=== PATIENT | female | born 1940 | race Caucasian/White ===

== ENCOUNTER 2016-12-07 10:53 | Outpatient (CLI) | payer MEDICARE, MEDICAID | END 2016-12-07 10:54 | disposition home or self-care (01) | DX: E11.9 Type 2 diabetes mellitus without complications (principal) ==

== ENCOUNTER 2017-04-17 21:55 | Outpatient (CLI) | payer MEDICARE, MEDICAID | END 2017-04-17 21:56 | disposition critical access hospital (66) | LOC: EMS 21:55 | PROVIDERS: ATTEND Surgery | DX: R10.30 Lower abdominal pain, unspecified (principal); R11.2 Nausea with vomiting, unspecified | CPT/HCPCS: A0425; A0427 ==

== ENCOUNTER 2017-04-17 22:15 | Emergency (ER) | payer MEDICARE, MEDICAID ==
[2017-04-17] MEDS ORDERED: ONDANSETRON 4 MG/2 ML VIAL IVP STA (22:25)
[2017-04-17] MEDS ORDERED: MORPHINE 2 MG/ML SYRINGE IVP STA (22:25)
[2017-04-17] MEDS ORDERED: MORPHINE 2 MG/ML SYRINGE ONE (22:41)
[2017-04-17] MEDS ORDERED: ONDANSETRON 4 MG/2 ML VIAL ONE (22:41)
[2017-04-17 23:36] LABS: BASOPHILS # (AUTO) 0.1 10^3/uL (0.0-0.1); BASOPHILS % (AUTO) 0.5 %; EOSINOPHILS # (AUTO) 0.1 10^3/uL (0.0-0.7); EOSINOPHILS % (AUTO) 0.8 %; HCT - HEMATOCRIT 38.6 % (37.0-47.0); HGB - HEMOGLOBIN 12.9 g/dL (12.0-16.0); LYMPHOCYTES # (AUTO) 0.8 10^3/uL (1.5-3.5); LYMPHOCYTES % (AUTO) 4.8 %; MEAN CORPUSCULAR HEMOGLOBIN 29.6 pg (27.0-31.0); MEAN CORPUSCULAR HGB CONC 33.5 g/dL (32.0-36.0); MEAN CORPUSCULAR VOLUME 88.4 fL (81.0-99.0); MEAN PLATELET VOLUME 8.3 fL (7.9-10.8); MONOCYTES # (AUTO) 0.5 10^3/uL (0.0-1.0); NEUTROPHILS # (AUTO) 15.8 10^3/uL (1.5-6.6); NEUTROPHILS % (AUTO) 90.9 %; RED BLOOD COUNT 4.36 10^6/uL (4.20-5.40); RED CELL DISTRIBUTION WIDTH 14.4 % (12.0-15.0); UNCORRECTED WHITE BLOOD COUNT 17.4 x10^3/uL; WHITE BLOOD COUNT 17.4 x10^3/uL (4.8-10.8)
[2017-04-17 23:50] LABS: ALBUMIN/GLOBULIN RATIO 1.3 (1.0-2.2); BILIRUBIN,TOTAL 0.8 mg/dL (0.2-1.0); CREATININE 0.8 mg/dL (0.4-1.0); POTASSIUM 3.8 mmol/L (3.5-5.0); TOTAL PROTEIN 7.4 g/dL (6.7-8.2)
[2017-04-17] MEDS ORDERED: SODIUM CHLORIDE 0.9% 1,000 ML IV ONE (23:53)
[2017-04-18 00:03] LABS: BILIRUBIN,URINE NEGATIVE (NEGATIVE); PH,URINE 5.5 PH (5.0-7.5)
[2017-04-18 00:28] LABS: UA w/ MICROSCOPIC CHARGE YES
[2017-04-18 00:29] LABS: UR CULTURE IF IND INDICATED
[2017-04-18] MEDS ORDERED: IOPAMIDOL-300 100 ML VIAL IVP ONE (00:39)
--- NOTE | 2017-04-18 01:03 | CT Report ---
EXAM: CT ABDOMEN AND PELVIS EXAM DATE: 04/18/2017 12:38 AM. CLINICAL HISTORY: Abdominal pain leukocytosis. COMPARISONS: 10/30/2015. TECHNIQUE: Routine helical CT imaging was performed through the abdomen and pelvis. IV contrast: Adriana onic. Enteric contrast: No. Reconstructions: Coronal and sagittal. In accordance with CT protocol optimization, one or more of the following dose reduction techniques w ere utilized for this exam: automated exposure control, adjustment of mA and/or KV based on patient s ize, or use of iterative reconstructive technique. FINDINGS: Lung Bases: Mild bibasilar atelectasis. Postoperative changes. Mild cardiomegaly. Small hiatal hernia . Liver: Suspected fatty infiltration. Gallbladder/Bile Ducts: Unremarkable. Spleen: Normal. Pancreas: Normal. Adrenal Glands: Normal. Kidneys: Right renal cyst measuring 5.2 cm. 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 Peritoneal Cavity/Bowel: Large amount of stool in the colon. Colonic diverticula without definite devyn dence of diverticulitis. No bowel obstruction seen. No free air. Trace free fluid in the pelvis. No l ymphadenopathy. Small umbilical hernia containing fat. Appendix appears normal. Pelvic Organs: Decompressed urinary bladder with Beebe catheter. Mild bladder wall thickening. Promin ent uterus with suspected fibroids. Vasculature: Moderate atherosclerosis. No aortic aneurysm. Bones: Degenerative changes in the spine. Median sternotomy. Other: None. IMPRESSION: 1. Large amount of stool in the colon. 2. Colonic diverticula with no definite evidence of diverticulitis. 3. Appendix appears normal. 4. Suspect uterine fibroids. 5. Small hiatal hernia. 6. Decompressed urinary bladder with Beebe catheter. Wall thickening which could represent hypertroph y and non-distention. Correlate for the possibility of cystitis. [facility] Referring Provider Line: [phone] SITE ID: [id number]
--- NOTE | 2017-04-18 01:22 | ED Physician Documentation ---
PD HPI ABD PAIN - Stated complaint Stated Complaint: ABD PAIN, N/V - Chief complaint Chief Complaint: Abd Pain - History obtained from History obtained from: Patient, EMS - History of Present Illness Timing - onset: How many hours ago (2) Timing - details: Abrupt onset Quality: Cramping Location: All over / everywhere, Epigastric Worsened by: Eating, Palpation Associated symptoms: Nausea, Vomiting, Constipation. No: Hematemesis, Diarrhea , Near syncope / syncope Similar symptoms before: No diagnosis Recently seen: Not recently seen - Additional information Additional information: Patient is a 76 year old female with multiple co-morbidities who is presenting to the emergency department for abdominal pain. According to patient and ems patient went out to eat at a diner and few hours later developed severe abdominal pain so patient called ems. Upon arrival to the emergency department the vomiting had stopped but patient still continued to complain of pain. Review of Systems Constitutional: denies: Fever, Chills Eyes: denies: Decreased vision, Photophobia Ears: denies: Ear pain, Drainage/discharge Nose: denies: Rhinorrhea / runny nose, Congestion Throat: denies: Sore throat Respiratory: denies: Cough, Wheezing GI: reports: Abdominal Pain, Nausea, Vomiting, Constipation. denies: Diarrhea : reports: Dysuria, Incontinent. denies: Frequency Skin: denies: Rash, Lesions Neurologic: denies: Generalized weakness, Focal weakness, Numbness, Difficulty speaking Immunocompromised: denies: Immunocompromised PD PAST MEDICAL HISTORY - Past Medical History Cardiovascular: Hypertension, High cholesterol, Coronary artery disease, Other Respiratory: None Neuro: TIA, Peripheral neuropathy Endocrine/Autoimmune: Type 2 diabetes, HyPERthyroidism GI: GERD : Incontinence HEENT: Chronic vision loss Psych: None Musculoskeletal: Osteoarthritis Derm: None - Past Surgical History Past Surgical History: Yes Ortho: Rotator cuff repair, Spine surgery Cardiovascular: CABG, Coronary stent - Present Medications Home Medications: Ambulatory Orders Medication Instructions Recorded Confirmed Clopidogrel Bisulfate [Plavix] 75 mg PO DAILY 04/21/14 12/31/14 Metformin HCl 1,000 mg PO BID 04/21/14 12/31/14 Metoprolol Tartrate 50 mg PO BID 04/21/14 12/31/14 Docusate Calcium [Surfak] 240 mg PO DAILY 09/04/14 12/31/14 Insulin Glargine [Lantus] 30 unit SUBQ QPM 09/04/14 12/31/14 Aspirin [Aspir 81] 81 mg PO DAILY 09/19/14 12/31/14 Losartan [Cozaar] 50 mg PO DAILY 09/19/14 12/31/14 Pregabalin [Lyrica] 50 mg PO DAILY 09/19/14 12/31/14 Acetaminophen [Tactinal] 650 mg PO Q4H PRN 12/31/14 12/31/14 Atorvastatin Calcium [Lipitor] 20 mg PO QPM 12/31/14 12/31/14 Chlorthalidone 25 mg PO DAILY 12/31/14 12/31/14 Darifenacin [Enablex] 15 mg PO DAILY 12/31/14 12/31/14 Insulin Lispro [Humalog] 6 units SQ AC 12/31/14 02/17/15 Pantoprazole [Protonix] 40 mg PO DAILY 12/31/14 12/31/14 Dicyclomine [Bentyl] 10 mg PO TID PRN #15 capsule 04/18/17 Docusate Sodium 250Mg Capsule 250 mg PO DAILY #14 capsule 04/18/17 [Colace 250Mg Capsule] Ondansetron Odt [Zofran] 4 mg TL Q6H PRN #14 tablet 04/18/17 Sennosides [Senna] 8.6 mg PO DAILY #14 tablet 04/18/17 - Allergies Allergies/Adverse Reactions: Allergies Allergy/AdvReac Type Severity Reaction Status Date / Time No Known Drug Allergies Allergy Verified 04/17/17 22:18 - Social History Does the pt smoke?: No Smoking Status: Never smoker Does the pt drink ETOH?: No PD ED PE NORMAL - Vitals Vital signs reviewed: Yes - General General: Alert and oriented X 3, No acute distress - HEENT HEENT: Atraumatic, PERRL - Neck Neck: Supple, no meningeal sign - Cardiac Cardiac: RRR, No murmur - Respiratory Respiratory: No respiratory distress, Clear bilaterally - Derm Derm: Normal color, Warm and dry, No rash - Extremities Extremities: No deformity, No tenderness to palpate, Normal ROM s pain, No edema - Neuro Neuro: Alert and oriented X 3, No motor deficit, No sensory deficit - Psych Psych: Normal mood, Normal affect PD ED PE EXPANDED - General General: Alert, No acute distress - HEENT HEENT: Dry mucous membranes - Abdomen Abdomen: Tender to palpation, Generalized/diffuse. No: Rebound, Guarding Results - Vitals Vitals: Vital Signs - 24 hr 04/17/17 04/17/17 04/18/17 22:18 23:24 00:00 Temperature 36.6 C Heart Rate 87 89 87 Respiratory 17 16 20 Rate Blood Pressure 153/104 H 147/60 H 158/58 H O2 Saturation 98 97 98 04/18/17 04/18/17 01:54 02:28 Temperature Heart Rate 88 90 Respiratory 16 16 Rate Blood Pressure 148/59 H 136/40 H O2 Saturation 98 96 Oxygen O2 Source Room air - Labs Labs: Laboratory Tests 04/17/17 04/17/17 04/17/17 00:01 23:15 23:15 WBC 17.4 H RBC 4.36 Hgb 12.9 Hct 38.6 MCV 88.4 MCH 29.6 MCHC 33.5 RDW 14.4 Plt Count 286 MPV 8.3 Neut # 15.8 H Lymph # 0.8 L [place] # 0.5 Eos # 0.1 Baso # 0.1 Absolute Nucleated RBC 0.00 Nucleated RBCs 0.0 Sodium 139 Potassium 3.8 Chloride 102 Carbon Dioxide 27 Anion Gap 10.0 BUN 21 H Creatinine 0.8 Estimated GFR (MDRD) 70 L Glucose 154 H Lactic Acid Calcium 9.0 Total Bilirubin 0.8 AST 15 ALT 13 Alkaline Phosphatase 80 Troponin I Total Protein 7.4 Albumin 4.2 Globulin 3.2 Albumin/Globulin Ratio 1.3 Lipase 25 Urine Color YELLOW Urine Clarity HAZY Urine pH 5.5 Ur Specific [place] 1.025 Urine Protein TRACE Urine Glucose (UA) NEGATIVE Urine Ketones NEGATIVE Urine Occult Blood MODERATE H Urine Nitrite NEGATIVE Urine Bilirubin NEGATIVE Urine Urobilinogen 0.2 (NORMAL) Ur Leukocyte Esterase TRACE H Urine RBC 11-25 H Urine WBC 4-5 Ur Squamous Epith Cells RARE Squamous Urine Bacteria None Seen Ur Microscopic Review INDICATED Urine Culture Comments INDICATED 04/17/17 04/17/17 23:15 23:15 WBC RBC Hgb Hct MCV MCH MCHC RDW Plt Count MPV Neut # Lymph # [place] # Eos # Baso # Absolute Nucleated RBC Nucleated RBCs Sodium Potassium Chloride Carbon Dioxide Anion Gap BUN Creatinine Estimated GFR (MDRD) Glucose Lactic Acid 1.8 Calcium Total Bilirubin AST ALT Alkaline Phosphatase Troponin I < 0.04 Total Protein Albumin Globulin Albumin/Globulin Ratio Lipase Urine Color Urine Clarity Urine pH Ur Specific [place] Urine Protein Urine Glucose (UA) Urine Ketones Urine Occult Blood Urine Nitrite Urine Bilirubin Urine Urobilinogen Ur Leukocyte Esterase Urine RBC Urine WBC Ur Squamous Epith Cells Urine Bacteria Ur Microscopic Review Urine Culture Comments - Rads (name of study) ct abdomen and pelvis Radiology: Final report received (large amount of stool, ) PD MEDICAL DECISION MAKING - ED course Complexity details: reviewed old records, reviewed results, re-evaluated patient , considered differential, d/w patient, d/w family ED course: Patient was seen and examined at bedside. IV access was gained and labs were drawn. Patient was treated with fluids and zofran. when patient's labs came back patient was found to have a leukocytosis but no other major abnormalities. Patient was sent for imaging. Imaging revealed no acute abnormalities. Patient did have mild hematuria but she had been cathed twice. Patient and family felt comfortable with the discharge plan. patient was discharged in stable condition. Departure - Departure Disposition: 01 Home, Self Care Clinical Impression: Gastroenteritis, Constipation Condition: Good Instructions: ED Constipation, ED Gastroenteritis Bacterial Follow-Up: Alice Curtis DPM [Primary Care Provider] - Tomorrow Prescriptions: Dicyclomine [Bentyl] 10 mg PO TID PRN #15 capsule PRN Reason: Abdominal Pain Docusate Sodium 250Mg Capsule [Colace 250Mg Capsule] 250 mg PO DAILY #14 capsule Sennosides [Senna] 8.6 mg PO DAILY #14 tablet Ondansetron Odt [Zofran] 4 mg TL Q6H PRN #14 tablet PRN Reason: Nausea / Vomiting Comments: Your symptoms today are being caused by a couple of different things. the vomiting and cramping is likely secondary to gastroenteritis and the diffuse abdominal pain is secondary to constipation. You will need to stay well hydrated and increase the amount of fruits and vegetables you eat. You may return to the emergency department at any time for new, worsening or uncontrollable symptoms. Discharge Date/Time: 04/18/17 02:31
[2017-04-18] MEDS ORDERED: DICYCLOMINE 10 MG CAPSULE PO ONE (01:41)
[2017-04-18] MEDS ORDERED: DICYCLOMINE 10 MG CAPSULE PO STA (01:44)
[2017-04-18 02:30] VITALS: BP 136/40
--- NOTE | 2017-04-18 12:40 | ED Physician Documentation ---
ED Addendum - Addendum Addendum: 04/18/17 12:40 TC from pharm, zofran not covered, phenergan 25mg tab 1 PO q6h PRN N/V #15
== END 2017-04-18 02:31 | disposition home or self-care (01) ==
LOC: EDUNIT# → ED 22:15
DX: K52.9 Noninfective gastroenteritis and colitis, unspecified (principal); K59.00 Constipation, unspecified; I10 Essential (primary) hypertension; E78.00 Pure hypercholesterolemia, unspecified; I25.10 Atherosclerotic heart disease of native coronary artery without angina pectoris; Z95.1 Presence of aortocoronary bypass graft; E11.42 Type 2 diabetes mellitus with diabetic polyneuropathy; Z79.4 Long term (current) use of insulin; Z79.84 Long term (current) use of oral hypoglycemic drugs; E05.90 Thyrotoxicosis, unspecified without thyrotoxic crisis or storm; K21.9 Gastro-esophageal reflux disease without esophagitis; Z86.73 Personal history of transient ischemic attack (TIA), and cerebral infarction without residual deficits; M19.90 Unspecified osteoarthritis, unspecified site
CPT/HCPCS: 36415; 51702; 74177; 80053; 81001; 83605; 83690; 84484; 85025; 87077; 87086; 87181; 96374; 96375; 99284; A9270; Q9967; 81003

== ENCOUNTER 2017-05-10 13:31 | Outpatient (CLI) | payer MEDICARE, MEDICAID ==
--- NOTE | 2017-05-10 15:08 | MRI Report ---
EXAM: MRI BRAIN WITHOUT CONTRAST EXAM DATE: 05/10/2017 02:17 PM. CLINICAL HISTORY: Confusion, history of TIA. COMPARISON: MRI of the brain 11/27/2011. TECHNIQUE: Multiplanar, multisequence T1-weighted and fluid-sensitive MR sequences of the brain were performed. Sequences optimized for routine evaluation. Other: None. IV Contrast: None. FINDINGS: Brain Volume: Age-advanced volume loss is present. Parenchyma/Dura: No masses, infarcts, or hemorrhage. Mild diffuse T2 and FLAIR bright white matter si gnal is seen throughout the cerebral hemispheres and brainstem. This is not significantly changed. In terval involution of previously noted acute infarct in the right anterior mid may is appreciated. No te is made of diffuse prominence to dilated perivascular spaces throughout the cerebral hemispheres b ilaterally. Ventricles/Cisterns: No hydrocephalus. No abnormal extra-axial fluid collection or hemorrhage. Mild p rominence to the ventricular system and overlying cortical sulci is noted. Orbits: Note is made of bilateral lens removal. The globes, optic nerve sheath complex, extraocular m uscles, and orbital fat are unremarkable. Sella [place]: The pituitary gland, cavernous sinuses, suprasellar cistern, and optic chiasm are unre markable. IAC: The internal auditory canals and cerebellopontine angle cisterns are symmetric and unremarkable. Vasculature: Normal signal flow void is seen in the major arterial structures at the skull base. The left vertebral artery is larger than the right. Sinuses: The paranasal sinuses are clear. Partial opacification is seen throughout bilateral mastoid air cells. This is not significantly changed. Bones: The skull is intact. Other: None. IMPRESSION: 1. No acute intracranial abnormality. No acute infarct, mass, hemorrhage. 2. Mild white matter signal abnormality in the cerebral hemispheres and brainstem. Findings are nonsp ecific but typically secondary to small vessel ischemic change. -Interval involution with small cystic focus in the right anterior may at site of previously noted l acunar infarct. 3. Partial opacification involving bilateral mastoid air cells. [facility] Referring Provider Line: [phone] SITE ID: [id number]
== END 2017-05-10 13:32 | disposition home or self-care (01) ==
LOC: DI 13:31
PROVIDERS: ATTEND Family Medicine
DX: R90.82 White matter disease, unspecified (principal); R90.89 Other abnormal findings on diagnostic imaging of central nervous system
CPT/HCPCS: 70551

== ENCOUNTER 2017-05-12 12:24 | Outpatient (CLI) | payer MEDICARE, MEDICAID ==
[2017-05-12 19:47] LABS: ALBUMIN/GLOBULIN RATIO 1.1 (1.0-2.2); BILIRUBIN,TOTAL 0.6 mg/dL (0.2-1.0); CALCIUM 8.8 mg/dL (8.5-10.3); CREATININE 1.1 mg/dL (0.4-1.0); POTASSIUM 4.1 mmol/L (3.5-5.0)
== END 2017-05-12 12:25 | disposition home or self-care (01) ==
LOC: LAB.WCP 12:24
PROVIDERS: ATTEND Family Medicine
DX: R60.9 Edema, unspecified (principal); N39.0 Urinary tract infection, site not specified
CPT/HCPCS: 36415; 80053; 83880; 87077; 87086

== ENCOUNTER 2017-05-19 08:00 | Outpatient (CLI) | payer MEDICARE, MEDICAID ==
[2017-05-19 19:06] LABS: CALCIUM 8.7 mg/dL (8.5-10.3); CREATININE 1.1 mg/dL (0.4-1.0); POTASSIUM 4.3 mmol/L (3.5-5.0)
== END 2017-05-19 08:01 ==
LOC: LAB.WCP 08:00
PROVIDERS: ATTEND Family Medicine
DX: R60.9 Edema, unspecified (principal); N39.0 Urinary tract infection, site not specified
CPT/HCPCS: 36415; 80048; 87086

== ENCOUNTER 2017-05-24 11:12 | Outpatient (CLI) | payer MEDICARE, MEDICAID | END 2017-05-24 11:13 | disposition home or self-care (01) | LOC: DI 11:12 | PROVIDERS: ATTEND Family Medicine | DX: R60.9 Edema, unspecified (principal); I07.1 Rheumatic tricuspid insufficiency | CPT/HCPCS: 93306 ==

== ENCOUNTER 2017-06-23 11:05 | Outpatient (CLI) | payer MEDICARE, MEDICAID ==
[2017-06-23 19:09] LABS: BASOPHILS # (AUTO) 0.1 10^3/uL (0.0-0.1); BASOPHILS % (AUTO) 0.6 %; EOSINOPHILS # (AUTO) 0.2 10^3/uL (0.0-0.7); EOSINOPHILS % (AUTO) 1.8 %; HCT - HEMATOCRIT 37.9 % (37.0-47.0); HGB - HEMOGLOBIN 12.3 g/dL (12.0-16.0); LYMPHOCYTES # (AUTO) 1.5 10^3/uL (1.5-3.5); LYMPHOCYTES % (AUTO) 17.2 %; MEAN CORPUSCULAR HEMOGLOBIN 29.7 pg (27.0-31.0); MEAN CORPUSCULAR HGB CONC 32.5 g/dL (32.0-36.0); MEAN CORPUSCULAR VOLUME 91.2 fL (81.0-99.0); MEAN PLATELET VOLUME 8.3 fL (7.9-10.8); MONOCYTES # (AUTO) 0.6 10^3/uL (0.0-1.0); MONOCYTES % (AUTO) 6.7 %; NEUTROPHILS # (AUTO) 6.5 10^3/uL (1.5-6.6); NEUTROPHILS % (AUTO) 73.7 %; RED BLOOD COUNT 4.16 10^6/uL (4.20-5.40); UNCORRECTED WHITE BLOOD COUNT 8.8 x10^3/uL; WHITE BLOOD COUNT 8.8 x10^3/uL (4.8-10.8)
[2017-06-23 19:25] LABS: ALBUMIN/GLOBULIN RATIO 1.3 (1.0-2.2); BILIRUBIN,TOTAL 0.6 mg/dL (0.2-1.0); BUN - BLOOD UREA NITROGEN 20 mg/dL (6-20); CARBON DIOXIDE - CO2 26 mmol/L (21-32); CHLORIDE 106 mmol/L (101-111); CHOL/HDL RATIO 3.8 (<4.4); CHOLESTEROL 128 mg/dL; CREATININE 0.9 mg/dL (0.4-1.0); GFR - MDRD 61 (>89); GLUCOSE 193 mg/dL (70-100); HDL CHOLESTEROL 34 mg/dL; HEMOGLOBIN A1C 0.77 g/dL; LDL/HDL RATIO 1.9 (<4.4); POTASSIUM 4.1 mmol/L (3.5-5.0); SODIUM 141 mmol/L (135-145); TOTAL PROTEIN 6.8 g/dL (6.7-8.2); TRIGLYCERIDES 153 mg/dL; VLDL CHOLESTEROL 31 mg/dL
== END 2017-06-23 11:06 | disposition home or self-care (01) ==
LOC: LAB.WCP 11:05
PROVIDERS: ATTEND Family Medicine
DX: E11.9 Type 2 diabetes mellitus without complications (principal)
CPT/HCPCS: 36415; 80053; 80061; 83036; 85025

== ENCOUNTER 2017-07-03 16:47 | Outpatient (CLI) | payer MEDICARE, MEDICAID | END 2017-07-03 16:48 | disposition critical access hospital (66) | LOC: EMS 16:47 | PROVIDERS: ATTEND Surgery | DX: M79.662 Pain in left lower leg (principal) | CPT/HCPCS: A0425; A0429 ==

== ENCOUNTER 2017-07-03 17:06 | Emergency (ER) | payer MEDICARE, MEDICAID ==
--- NOTE | 2017-07-03 17:15 | ED Physician Documentation ---
PD HPI LOWER EXT INJURY - Stated complaint Stated Complaint: Fall - Chief complaint Chief Complaint: Ext Problem - History obtained from History obtained from: Patient, EMS - History of Present Illness PD HPI LOW EXT INJURY LOCATION: Left, Lower leg Type of injury: Fall, Blunt / blow (she was climging into [place] and slipped on wet hay, landing with redd hitting the rail. Bruising and swelling locally that has increased. Pain with palpation and walking.) Timing - onset: Today Timing - details: Abrupt onset, Still present Worsened by: Moving, Palpating Associated symptoms: Swelling. No: Weakness, Numbness Contributing factors: Anticoagulated (on Plavix) Similar symptoms before: Has not had sx before Recently seen: Not recently seen Review of Systems Constitutional: denies: Fever, Chills Nose: denies: Rhinorrhea / runny nose, Congestion Throat: denies: Sore throat Cardiac: denies: Chest pain / pressure Respiratory: denies: Cough GI: denies: Abdominal Pain, Nausea, Vomiting, Diarrhea Neurologic: denies: Focal weakness, Numbness, Headache, Head injury PD PAST MEDICAL HISTORY - Past Medical History Cardiovascular: Hypertension, High cholesterol, Coronary artery disease, Other Respiratory: None Neuro: TIA, Peripheral neuropathy Endocrine/Autoimmune: Type 2 diabetes, HyPERthyroidism GI: GERD : Incontinence HEENT: Chronic vision loss Psych: None Musculoskeletal: Osteoarthritis Derm: None - Past Surgical History Past Surgical History: Yes Ortho: Rotator cuff repair, Spine surgery Cardiovascular: CABG, Coronary stent - Present Medications Home Medications: Ambulatory Orders Medication Instructions Recorded Confirmed Clopidogrel Bisulfate [Plavix] 75 mg PO DAILY 04/21/14 07/03/17 Metformin HCl 1,000 mg PO BID 04/21/14 07/03/17 Metoprolol Tartrate 50 mg PO BID 04/21/14 07/03/17 Docusate Calcium [Surfak] 240 mg PO DAILY 09/04/14 07/03/17 Insulin Glargine [Lantus] 30 unit SUBQ QPM 09/04/14 07/03/17 Aspirin [Aspir 81] 81 mg PO DAILY 09/19/14 07/03/17 Losartan [Cozaar] 50 mg PO DAILY 09/19/14 07/03/17 Pregabalin [Lyrica] 50 mg PO DAILY 09/19/14 07/03/17 Acetaminophen [Tactinal] 650 mg PO Q4H PRN 02/17/15 08/20/17 Atorvastatin Calcium [Lipitor] 20 mg PO QPM 12/31/14 07/03/17 Chlorthalidone 25 mg PO DAILY 12/31/14 07/03/17 Darifenacin [Enablex] 15 mg PO DAILY 12/31/14 07/03/17 Insulin Lispro [Humalog] 6 units SQ AC 12/31/14 07/03/17 Docusate Sodium 250Mg Capsule 250 mg PO DAILY #14 capsule 04/18/17 07/03/17 [Colace 250Mg Capsule] Ondansetron Odt [Zofran] 4 mg TL Q6H PRN #14 tablet 04/18/17 07/03/17 Sennosides [Senna] 8.6 mg PO DAILY #14 tablet 04/18/17 07/03/17 - Allergies Allergies/Adverse Reactions: Allergies Allergy/AdvReac Type Severity Reaction Status Date / Time No Known Drug Allergies Allergy Verified 04/17/17 22:18 - Social History Does the pt smoke?: No Smoking Status: Never smoker Does the pt drink ETOH?: No PD ED PE NORMAL - Vitals Vital signs reviewed: Yes - General General: Alert and oriented X 3, Well developed/nourished - HEENT HEENT: Atraumatic - Neck Neck: Supple, no meningeal sign, No bony TTP - Abdomen Abdomen: Soft, Non tender - Back Back: No spinal TTP - Derm Derm: Normal color, Warm and dry - Extremities Extremities: Other (left anterior lower leg, proximal end medial to tibial ridge with local hematoma, tender with some tenseness. No laceration. ) - Neuro Neuro: No motor deficit, Other (has less sensation generally in lower lower legs and feet due to neuropathy. Patient says it feels about normal for her. ) Results - Vitals Vitals: Oxygen O2 Source Room air - Rads (name of study) tib/fib Radiology: Prelim report reviewed, EMP read contemporaneously (no fractures. ) PD MEDICAL DECISION MAKING - ED course Complexity details: reviewed results, considered differential, d/w patient Departure - Departure Disposition: 01 Home, Self Care Clinical Impression: Fall from slip, trip, or stumble Qualifiers: Encounter type: initial encounter Qualified Code(s): W01.0XXA - Fall on same level from slipping, tripping and stumbling without subsequent striking against object, initial encounter Hematoma of lower extremity Qualifiers: Encounter type: initial encounter Laterality: left Qualified Code(s): S80.12XA - Contusion of left lower leg, initial encounter Condition: Stable Record reviewed to determine appropriate education?: Yes Instructions: ED Hematoma Follow-Up: Bryn Knight MD [Primary Care Provider] - Comments: Anshul wrap for the area and elevate and ice it tonight and tomorrow to reduce the swelling. There are no fractures on x-ray. It appears to be a hematoma which is a collection of blood from injury. This typically improves on its own over a week or 2. He will likely get some bruising at the site and lower in the leg over the next several days. Use Tylenol if needed for pains. Discharge Date/Time: 07/03/17 18:44
[2017-07-03] MEDS ORDERED: MORPHINE 2 MG/ML CARPUJECT IVP STA (17:26)
[2017-07-03] MEDS ORDERED: ACETAMINOPHEN 325 MG TABLET PO STA (17:26)
[2017-07-03] MEDS ORDERED: MORPHINE 2 MG/ML CARPUJECT ONE (17:46)
[2017-07-03] MEDS ORDERED: ACETAMINOPHEN 325 MG TABLET PO ONE (17:47)
[2017-07-03 18:03] VITALS: BP 173/72
--- NOTE | 2017-07-03 18:11 | XRAY Preliminary Report ---
Exam: XR Tib/Fib LT IMPRESSION: Normal tibia/fibula radiography. [facility] SITE ID: [id number]
--- NOTE | 2017-07-03 18:14 | XRAY Report ---
EXAM: LEFT TIBIA/FIBULA RADIOGRAPHY EXAM DATE: 07/03/2017 05:47 PM. CLINICAL HISTORY: Fall. Injury to left upper anterior redd. COMPARISON: None. TECHNIQUE: 2 views. FINDINGS: Bones: Normal. No fracture or bone lesion. Joints: The visualized knee and ankle joints are normal. No effusions. Soft Tissues: Vascular clips noted. IMPRESSION: Normal tibia/fibula radiography. [facility] Referring Provider Line: [phone] SITE ID: [id number]
== END 2017-07-03 18:44 | disposition home or self-care (01) ==
LOC: EDUNIT# → ED 17:06
DX: S80.12XA Contusion of left lower leg, initial encounter (principal); W18.30XA Fall on same level, unspecified, initial encounter; W22.09XA Striking against other stationary object, initial encounter; Y93.39 Activity, other involving climbing, rappelling and jumping off; Y92.9 Unspecified place or not applicable; I10 Essential (primary) hypertension; E11.8 Type 2 diabetes mellitus with unspecified complications; I25.10 Atherosclerotic heart disease of native coronary artery without angina pectoris; Z95.1 Presence of aortocoronary bypass graft; Z95.5 Presence of coronary angioplasty implant and graft; Z79.01 Long term (current) use of anticoagulants; Z79.84 Long term (current) use of oral hypoglycemic drugs; Z79.4 Long term (current) use of insulin
CPT/HCPCS: 73590; 96374; 99283; A9270

== ENCOUNTER 2017-08-02 10:51 | Outpatient (CLI) | payer MEDICARE, MEDICAID | END 2017-08-02 10:52 | disposition home or self-care (01) | LOC: SC 10:51 | PROVIDERS: ATTEND Internal Medicine Pulmonary Disease | DX: R53.83 Other fatigue (principal); R06.83 Snoring; R06.81 Apnea, not elsewhere classified; G31.84 Mild cognitive impairment of uncertain or unknown etiology; G47.10 Hypersomnia, unspecified; E11.9 Type 2 diabetes mellitus without complications; M79.7 Fibromyalgia; R00.1 Bradycardia, unspecified; I25.10 Atherosclerotic heart disease of native coronary artery without angina pectoris; G62.9 Polyneuropathy, unspecified | CPT/HCPCS: 99203; G0463; 99212 ==

== ENCOUNTER 2017-09-09 22:26 | Outpatient (CLI) | payer MEDICARE, MEDICAID | END 2017-09-09 22:27 | disposition home or self-care (01) | LOC: SC 22:26 | PROVIDERS: ATTEND Internal Medicine Pulmonary Disease | DX: G47.33 Obstructive sleep apnea (adult) (pediatric) (principal); G47.61 Periodic limb movement disorder; Z68.34 Body mass index [BMI] 34.0-34.9, adult | CPT/HCPCS: 95810 ==

== ENCOUNTER 2017-09-29 14:05 | Outpatient (CLI) | payer MEDICARE, MEDICAID | END 2017-09-29 14:06 | disposition home or self-care (01) | LOC: SC 14:05 | PROVIDERS: ATTEND Specialist | DX: G47.33 Obstructive sleep apnea (adult) (pediatric) (principal); G47.61 Periodic limb movement disorder; G47.00 Insomnia, unspecified | CPT/HCPCS: 99214; G0463; 99212 ==

== ENCOUNTER 2017-10-26 08:00 | Outpatient (CLI) | payer MEDICARE, MEDICAID | END 2017-10-26 08:01 | disposition home or self-care (01) | LOC: LAB.WCP 08:00 | PROVIDERS: ATTEND Family Medicine | DX: R30.9 Painful micturition, unspecified (principal) | CPT/HCPCS: 87086 ==

== ENCOUNTER 2018-01-26 11:50 | Outpatient (CLI) | payer MEDICARE, MEDICAID ==
[2018-01-26 19:07] LABS: BASOPHILS # (AUTO) 0.1 10^3/uL (0.0-0.1); BASOPHILS % (AUTO) 0.8 %; EOSINOPHILS # (AUTO) 0.2 10^3/uL (0.0-0.7); EOSINOPHILS % (AUTO) 2.7 %; HGB - HEMOGLOBIN 11.9 g/dL (12.0-16.0); LYMPHOCYTES # (AUTO) 1.2 10^3/uL (1.5-3.5); LYMPHOCYTES % (AUTO) 15.9 %; MEAN CORPUSCULAR HEMOGLOBIN 28.7 pg (27.0-31.0); MEAN CORPUSCULAR HGB CONC 31.9 g/dL (32.0-36.0); MEAN CORPUSCULAR VOLUME 89.8 fL (81.0-99.0); MONOCYTES # (AUTO) 0.6 10^3/uL (0.0-1.0); MONOCYTES % (AUTO) 7.8 %; NEUTROPHILS # (AUTO) 5.6 10^3/uL (1.5-6.6); NEUTROPHILS % (AUTO) 72.8 %; PLT - PLATELET COUNT 274 10^3/uL (130-450); RED BLOOD COUNT 4.16 10^6/uL (4.20-5.40); RED CELL DISTRIBUTION WIDTH 14.4 % (12.0-15.0); WHITE BLOOD COUNT 7.6 x10^3/uL (4.8-10.8)
[2018-01-26 19:34] LABS: HB2 TOTAL 12.7 g/dL; HEMOGLOBIN A1C 0.75 g/dL; HEMOGLOBIN A1C % 7.6 % (4.6-6.2)
== END 2018-01-26 11:51 ==
LOC: LAB.WCP 11:50
PROVIDERS: ATTEND Family Medicine
DX: E11.9 Type 2 diabetes mellitus without complications (principal); N39.0 Urinary tract infection, site not specified
CPT/HCPCS: 36415; 80053; 80061; 83036; 83721; 84443; 85025; 87086

== ENCOUNTER 2018-03-22 22:02 | Outpatient (CLI) | payer MEDICARE, MEDICAID | END 2018-03-22 22:03 | disposition critical access hospital (66) | LOC: EMS 22:02 | PROVIDERS: ATTEND Surgery | DX: R10.30 Lower abdominal pain, unspecified (principal) | CPT/HCPCS: A0425; A0429 ==

== ENCOUNTER 2018-03-22 22:20 | Emergency (ER) | payer MEDICARE, MEDICAID ==
[2018-03-22 22:49] LABS: BASOPHILS # (AUTO) 0.1 10^3/uL (0.0-0.1); BASOPHILS % (AUTO) 0.5 %; EOSINOPHILS # (AUTO) 0.1 10^3/uL (0.0-0.7); EOSINOPHILS % (AUTO) 0.5 %; HGB - HEMOGLOBIN 12.8 g/dL (12.0-16.0); LYMPHOCYTES # (AUTO) 1.1 10^3/uL (1.5-3.5); LYMPHOCYTES % (AUTO) 6.4 %; MEAN CORPUSCULAR HEMOGLOBIN 28.8 pg (27.0-31.0); MEAN CORPUSCULAR HGB CONC 32.2 g/dL (32.0-36.0); MEAN CORPUSCULAR VOLUME 89.4 fL (81.0-99.0); MEAN PLATELET VOLUME 7.9 fL (7.9-10.8); MONOCYTES # (AUTO) 0.8 10^3/uL (0.0-1.0); MONOCYTES % (AUTO) 4.5 %; NEUTROPHILS # (AUTO) 14.7 10^3/uL (1.5-6.6); NEUTROPHILS % (AUTO) 88.1 %; PLT - PLATELET COUNT 276 10^3/uL (130-450); RED BLOOD COUNT 4.44 10^6/uL (4.20-5.40); RED CELL DISTRIBUTION WIDTH 14.5 % (12.0-15.0); WHITE BLOOD COUNT 16.7 x10^3/uL (4.8-10.8)
[2018-03-22 23:02] LABS: ALBUMIN 3.9 g/dL (3.2-5.5); BILIRUBIN,TOTAL 0.9 mg/dL (0.2-1.0); CREATININE 0.9 mg/dL (0.4-1.0); TOTAL PROTEIN 7.7 g/dL (6.7-8.2)
[2018-03-22 23:08] LABS: BILIRUBIN,URINE NEGATIVE (NEGATIVE); GLUCOSE, URINE (UA) 250 mg/dL (NEGATIVE); KETONES,URINE (UA) NEGATIVE (NEGATIVE); LEUKOCYTE ESTERASE, URINE NEGATIVE (NEGATIVE); NITRITE,URINE POSITIVE (NEGATIVE); OCCULT BLOOD,URINE NEGATIVE (NEGATIVE); PROTEIN,URINE NEGATIVE (NEGATIVE); UROBILINOGEN,URINE 0.2 (NORMAL) E.U./dL (NORMAL)
[2018-03-22 23:09] LABS: CLARITY,URINE CLOUDY (CLEAR)
[2018-03-22 23:15] LABS: BACTERIA,URINE Many /HPF (None Seen); SQUAMOUS EPITHELIAL CELL,UR NONE SEEN (<= Few)
[2018-03-22] MEDS ORDERED: PHENAZOPYRIDINE 100 MG TABLET PO STA (23:30)
[2018-03-22] MEDS ORDERED: NITROFURANTOIN MACRO 100 MG CAPSULE PO STA (23:30)
[2018-03-22] MEDS ORDERED: ACETAMINOPHEN 500 MG TABLET PO STA (23:30)
--- NOTE | 2018-03-22 23:39 | ED Physician Documentation ---
PD HPI FEMALE - Stated complaint Stated Complaint: ABD PAIN, SHAKING - Chief complaint Chief Complaint: Abd Pain - History obtained from History obtained from: Patient - History of Present Illness Timing - onset: Today Timing - details: Gradual onset, Still present Associated symptoms: Pelvic pain, Dysuria, Urinary frequency Recently seen: Not recently seen - Additional information Additional information: Patient is a 77 year old female with no significant past medical history who is presenting to the emergency department for pelvic pain and dysuria. Patient states that her symptoms started tonight when she was working on puzzles. Patient states that the pain is worse with urination. Patient has not had the symptoms before. Review of Systems Ten Systems: 10 systems reviewed and negative Constitutional: reports: Sweats. denies: Fever GI: reports: Abdominal Pain. denies: Nausea, Vomiting : reports: Dysuria, Frequency PD PAST MEDICAL HISTORY - Past Medical History Cardiovascular: Hypertension, High cholesterol, Coronary artery disease, Other Respiratory: None Neuro: TIA, Peripheral neuropathy Endocrine/Autoimmune: Type 2 diabetes, HyPERthyroidism GI: GERD : Incontinence HEENT: Chronic vision loss Psych: None Musculoskeletal: Osteoarthritis Derm: None - Past Surgical History Past Surgical History: Yes Ortho: Rotator cuff repair, Spine surgery Cardiovascular: CABG, Coronary stent - Present Medications Home Medications: Ambulatory Orders Medication Instructions Recorded Confirmed Clopidogrel Bisulfate [Plavix] 75 mg PO DAILY 04/21/14 07/03/17 Metformin HCl 1,000 mg PO BID 04/21/14 07/03/17 Metoprolol Tartrate 50 mg PO BID 04/21/14 07/03/17 Docusate Calcium [Surfak] 240 mg PO DAILY 09/04/14 07/03/17 Insulin Glargine [Lantus] 30 unit SUBQ QPM 09/04/14 07/03/17 Aspirin [Aspir 81] 81 mg PO DAILY 09/19/14 07/03/17 Losartan [Cozaar] 50 mg PO DAILY 09/19/14 07/03/17 Pregabalin [Lyrica] 50 mg PO DAILY 09/19/14 07/03/17 Acetaminophen [Tactinal] 650 mg PO Q4H PRN 12/31/14 07/03/17 Atorvastatin Calcium [Lipitor] 20 mg PO QPM 12/31/14 07/03/17 Chlorthalidone 25 mg PO DAILY 02/17/15 08/20/17 Darifenacin [Enablex] 15 mg PO DAILY 12/31/14 07/03/17 Insulin Lispro [Humalog] 6 units SQ AC 12/31/14 07/03/17 Docusate Sodium 250Mg Capsule 250 mg PO DAILY #14 capsule 04/18/17 07/03/17 [Colace 250Mg Capsule] Ondansetron Odt [Zofran] 4 mg TL Q6H PRN #14 tablet 04/18/17 07/03/17 Sennosides [Senna] 8.6 mg PO DAILY #14 tablet 04/18/17 07/03/17 Nitrofurantoin Monohyd/M-Cryst 100 mg PO BID 5 Days capsule 03/22/18 [Macrobid 100 mg Capsule] Phenazopyridine HCl [Pyridium] 200 mg PO TID PRN #6 tablet 03/22/18 - Allergies Allergies/Adverse Reactions: Allergies Allergy/AdvReac Type Severity Reaction Status Date / Time No Known Drug Allergies Allergy Verified 03/22/18 22:28 - Social History Does the pt smoke?: No Smoking Status: Never smoker Does the pt drink ETOH?: No PD ED PE NORMAL - Vitals Vital signs reviewed: Yes - General General: Alert and oriented X 3, No acute distress - HEENT HEENT: Atraumatic - Neck Neck: Supple, no meningeal sign - Cardiac Cardiac: RRR - Respiratory Respiratory: No respiratory distress - Abdomen Abdomen: Soft - Derm Derm: Normal color, Warm and dry - Extremities Extremities: No deformity - Neuro Neuro: Alert and oriented X 3, No motor deficit, Normal speech Eye Opening: Spontaneous - Psych Psych: Normal mood PD ED PE EXPANDED - Abdomen Abdomen: Tender to palpation, Suprapubic. No: Rebound, Guarding Results - Vitals Vitals: Vital Signs - 24 hr 03/22/18 22:22 Temperature 36.9 C Heart Rate 82 Respiratory 16 Rate Blood Pressure 185/95 H O2 Saturation 97 Oxygen O2 Source Room air - Labs Labs: Laboratory Tests 03/22/18 03/22/18 03/22/18 22:43 22:43 22:57 WBC 16.7 H RBC 4.44 Hgb 12.8 Hct 39.7 MCV 89.4 MCH 28.8 MCHC 32.2 RDW 14.5 Plt Count 276 MPV 7.9 Neut # 14.7 H Lymph # 1.1 L [place] # 0.8 Eos # 0.1 Baso # 0.1 Absolute Nucleated RBC 0.00 Nucleated RBC % 0.0 Sodium 136 Potassium 4.1 Chloride 100 L Carbon Dioxide 26 Anion Gap 10.0 BUN 18 Creatinine 0.9 Estimated GFR (MDRD) 61 L Glucose 160 H Calcium 9.0 Total Bilirubin 0.9 AST 17 ALT 11 Alkaline Phosphatase 64 Total Protein 7.7 Albumin 3.9 Globulin 3.8 Albumin/Globulin Ratio 1.0 Lipase 23 Urine Color YELLOW Urine Clarity CLOUDY Urine pH 6.0 Ur Specific [place] 1.025 Urine Protein NEGATIVE Urine Glucose (UA) 250 H Urine Ketones NEGATIVE Urine Occult Blood NEGATIVE Urine Nitrite POSITIVE H Urine Bilirubin NEGATIVE Urine Urobilinogen 0.2 (NORMAL) Ur Leukocyte Esterase NEGATIVE Urine RBC 6-10 H Urine WBC >25 H Ur Squamous Epith Cells NONE SEEN Urine Bacteria Many H Ur Microscopic Review INDICATED Urine Culture Comments INDICATED PD MEDICAL DECISION MAKING - ED course Complexity details: reviewed old records, reviewed results, re-evaluated patient , considered differential, d/w patient ED course: Patient was seen and examined at bedside. labs were drawn and urine was collected. patient was found to have a urinary tract infection. Patient was non toxic and able to tolerate PO without difficulty. patient required no further work up and was stable for discharge with outpatient follow up. Departure - Departure Disposition: 01 Home, Self Care Clinical Impression: Urinary tract infection Condition: Good Instructions: ED UTI Cystitis Female Follow-Up: Elizabeth Melvin DO [Primary Care Provider] - Tomorrow Prescriptions: Nitrofurantoin Monohyd/M-Cryst [Macrobid 100 mg Capsule] 100 mg PO BID 5 Days capsule Phenazopyridine HCl [Pyridium] 200 mg PO TID PRN #6 tablet PRN Reason: dysuria Comments: Your symptoms today are being caused by a bladder infection. You had your first dose of antibiotics tonight and you will need to be on them for the next five days. You should stay well hydrated and drink plenty of fluids. you should follow up with doctor if your symptoms don't improve. You should return to the emergency department at any time for new, worsening or uncontrollable symptoms.
[2018-03-22 23:55] VITALS: BP 185/76
== END 2018-03-22 23:50 | disposition home or self-care (01) ==
LOC: EDUNIT# → ED 22:20
DX: N30.90 Cystitis, unspecified without hematuria (principal); I10 Essential (primary) hypertension; E11.40 Type 2 diabetes mellitus with diabetic neuropathy, unspecified; I25.10 Atherosclerotic heart disease of native coronary artery without angina pectoris; Z86.73 Personal history of transient ischemic attack (TIA), and cerebral infarction without residual deficits; Z79.4 Long term (current) use of insulin; Z79.02 Long term (current) use of antithrombotics/antiplatelets
CPT/HCPCS: 36415; 80053; 81001; 83690; 85025; 87077; 87086; 87181; 99283; A9270; 81003

== ENCOUNTER 2018-04-27 11:20 | Outpatient (CLI) | payer MEDICARE, MEDICAID ==
[2018-04-27 19:28] LABS: HB2 TOTAL 12.9 g/dL; HEMOGLOBIN A1C 0.65 g/dL; HEMOGLOBIN A1C % 6.8 % (4.6-6.2)
== END 2018-04-27 23:59 | disposition home or self-care (01) ==
LOC: LAB.WCP 11:20
PROVIDERS: ATTEND Family Medicine
DX: E11.9 Type 2 diabetes mellitus without complications (principal)
CPT/HCPCS: 36415; 83036

== ENCOUNTER 2018-07-27 08:00 | Outpatient (CLI) | payer MEDICARE, MEDICAID ==
[2018-07-27 12:57] LABS: BASOPHILS # (AUTO) 0.1 10^3/uL (0.0-0.1); BASOPHILS % (AUTO) 0.7 %; EOSINOPHILS # (AUTO) 0.2 10^3/uL (0.0-0.7); EOSINOPHILS % (AUTO) 2.3 %; HGB - HEMOGLOBIN 12.6 g/dL (12.0-16.0); LYMPHOCYTES # (AUTO) 1.3 10^3/uL (1.5-3.5); LYMPHOCYTES % (AUTO) 13.5 %; MEAN CORPUSCULAR HEMOGLOBIN 30.6 pg (27.0-31.0); MEAN PLATELET VOLUME 8.6 fL (7.9-10.8); MONOCYTES # (AUTO) 0.6 10^3/uL (0.0-1.0); MONOCYTES % (AUTO) 6.5 %; NEUTROPHILS # (AUTO) 7.2 10^3/uL (1.5-6.6); PLT - PLATELET COUNT 278 10^3/uL (130-450); RED BLOOD COUNT 4.11 10^6/uL (4.20-5.40); RED CELL DISTRIBUTION WIDTH 14.8 % (12.0-15.0); WHITE BLOOD COUNT 9.4 x10^3/uL (4.8-10.8)
[2018-07-27 13:10] LABS: HB2 TOTAL 13.3 g/dL; HEMOGLOBIN A1C 0.76 g/dL; HEMOGLOBIN A1C % 7.4 % (4.6-6.2)
[2018-07-27 13:16] LABS: ALBUMIN 3.9 g/dL (3.2-5.5); ALBUMIN/GLOBULIN RATIO 1.3 (1.0-2.2); ALKALINE PHOSPHATASE 64 IU/L (42-121); ALT ALANINE AMINOTRANSFERASE 12 IU/L (10-60); AST ASPARTATE AMINOTRANSFERASE 14 IU/L (10-42); BILIRUBIN,TOTAL 0.8 mg/dL (0.2-1.0); BUN - BLOOD UREA NITROGEN 18 mg/dL (6-20); CHOL/HDL RATIO 3.3 (<4.4); CHOLESTEROL 116 mg/dL; CREATININE 0.9 mg/dL (0.4-1.0); GFR - MDRD 61 (>89); HDL CHOLESTEROL 35 mg/dL; LDL CHOLESTEROL,CALCULATED 54 mg/dL; LDL/HDL RATIO 1.5 (<4.4); VLDL CHOLESTEROL 27 mg/dL
[2018-07-27 13:22] LABS: CALCIUM 9.1 mg/dL (8.5-10.3); CARBON DIOXIDE - CO2 26 mmol/L (21-32); CHLORIDE 100 mmol/L (101-111); GLUCOSE 156 mg/dL (70-100); SODIUM 138 mmol/L (135-145)
== END 2018-07-27 08:01 | disposition home or self-care (01) ==
LOC: LAB.WCP 08:00
PROVIDERS: ATTEND Family Medicine
DX: E11.9 Type 2 diabetes mellitus without complications (principal)
CPT/HCPCS: 36415; 80053; 80061; 83036; 83721; 84443; 85025

== ENCOUNTER 2018-08-25 08:00 | Outpatient (CLI) | payer MEDICARE, MEDICAID | END 2018-08-25 08:01 | disposition home or self-care (01) | LOC: LAB.WCP 08:00 | PROVIDERS: ATTEND Internal Medicine Cardiovascular Disease | DX: I25.10 Atherosclerotic heart disease of native coronary artery without angina pectoris (principal); I25.119 Atherosclerotic heart disease of native coronary artery with unspecified angina pectoris | CPT/HCPCS: 36415; 85651 ==

== ENCOUNTER 2018-10-26 11:25 | Outpatient (CLI) | payer MEDICARE, MEDICAID ==
[2018-10-26 19:14] LABS: CALCIUM 8.9 mg/dL (8.5-10.3); CREATININE 0.9 mg/dL (0.4-1.0)
[2018-10-26 19:39] LABS: HB2 TOTAL 13.7 g/dL; HEMOGLOBIN A1C 0.97 g/dL; HEMOGLOBIN A1C % 8.6 % (4.6-6.2)
== END 2018-10-26 23:59 | disposition home or self-care (01) ==
LOC: LAB.WCP 11:25
PROVIDERS: ATTEND Family Medicine
DX: E11.9 Type 2 diabetes mellitus without complications (principal)
CPT/HCPCS: 36415; 80048; 83036

== ENCOUNTER 2019-01-18 08:00 | Outpatient (CLI) | payer MEDICARE, MEDICAID ==
[2019-01-18 19:16] LABS: HB2 TOTAL 13.3 g/dL; HEMOGLOBIN A1C 1.21 g/dL; HEMOGLOBIN A1C % 10.5 % (4.6-6.2)
[2019-01-18 19:34] LABS: CALCIUM 8.8 mg/dL (8.5-10.3); CREATININE 0.8 mg/dL (0.4-1.0)
== END 2019-01-18 23:59 | disposition home or self-care (01) ==
LOC: LAB.WCP 08:00
PROVIDERS: ATTEND Family Medicine
DX: E11.9 Type 2 diabetes mellitus without complications (principal)
CPT/HCPCS: 36415; 80048; 83036

== ENCOUNTER 2019-02-21 08:00 | Outpatient (CLI) | payer MEDICARE, MEDICAID ==
[2019-02-21 19:20] LABS: BASOPHILS % (AUTO) 0.4 %; EOSINOPHILS # (AUTO) 0.2 10^3/uL (0.0-0.7); EOSINOPHILS % (AUTO) 1.7 %; HGB - HEMOGLOBIN 12.7 g/dL (12.0-16.0); LYMPHOCYTES # (AUTO) 1.2 10^3/uL (1.5-3.5); LYMPHOCYTES % (AUTO) 10.4 %; MEAN CORPUSCULAR HEMOGLOBIN 30.2 pg (27.0-31.0); MEAN CORPUSCULAR HGB CONC 33.3 g/dL (32.0-36.0); MEAN CORPUSCULAR VOLUME 90.6 fL (81.0-99.0); MEAN PLATELET VOLUME 9.2 fL (7.9-10.8); MONOCYTES # (AUTO) 0.9 10^3/uL (0.0-1.0); MONOCYTES % (AUTO) 7.6 %; NEUTROPHILS % (AUTO) 79.9 %; PLT - PLATELET COUNT 252 10^3/uL (130-450); RED BLOOD COUNT 4.22 10^6/uL (4.20-5.40); RED CELL DISTRIBUTION WIDTH 13.6 % (12.0-15.0); WHITE BLOOD COUNT 11.3 x10^3/uL (4.8-10.8)
[2019-02-21 19:40] LABS: ALBUMIN 3.8 g/dL (3.2-5.5); ALBUMIN/GLOBULIN RATIO 1.3 (1.0-2.2); BILIRUBIN,TOTAL 0.9 mg/dL (0.2-1.0); CALCIUM 8.8 mg/dL (8.5-10.3); CREATININE 0.9 mg/dL (0.4-1.0); TOTAL PROTEIN 6.8 g/dL (6.7-8.2)
== END 2019-02-21 23:59 | disposition home or self-care (01) ==
LOC: LAB.R 08:00
PROVIDERS: ATTEND Physician Assistant
DX: I10 Essential (primary) hypertension (principal)
CPT/HCPCS: 80053; 85025

== ENCOUNTER 2019-04-05 13:15 | Outpatient (CLI) | payer MEDICARE, MEDICAID | END 2019-04-05 23:59 | LOC: LAB.R 13:15 | PROVIDERS: ATTEND Family Medicine | DX: N39.0 Urinary tract infection, site not specified (principal) | CPT/HCPCS: 87077; 87086; 87181 ==

== ENCOUNTER 2019-04-19 11:45 | Outpatient (CLI) | payer MEDICARE, MEDICAID ==
[2019-04-19 18:44] LABS: BASOPHILS % (AUTO) 0.7 %; EOSINOPHILS # (AUTO) 0.2 10^3/uL (0.0-0.7); EOSINOPHILS % (AUTO) 2.3 %; HGB - HEMOGLOBIN 12.8 g/dL (12.0-16.0); LYMPHOCYTES # (AUTO) 1.1 10^3/uL (1.5-3.5); LYMPHOCYTES % (AUTO) 15.2 %; MEAN CORPUSCULAR HEMOGLOBIN 30.6 pg (27.0-31.0); MEAN CORPUSCULAR HGB CONC 33.1 g/dL (32.0-36.0); MEAN CORPUSCULAR VOLUME 92.4 fL (81.0-99.0); MEAN PLATELET VOLUME 9.3 fL (7.9-10.8); MONOCYTES # (AUTO) 0.4 10^3/uL (0.0-1.0); MONOCYTES % (AUTO) 6.4 %; NEUTROPHILS # (AUTO) 5.2 10^3/uL (1.5-6.6); NEUTROPHILS % (AUTO) 75.4 %; PLT - PLATELET COUNT 260 10^3/uL (130-450); RED CELL DISTRIBUTION WIDTH 14.5 % (12.0-15.0); WHITE BLOOD COUNT 6.9 x10^3/uL (4.8-10.8)
[2019-04-19 18:48] LABS: BILIRUBIN,URINE NEGATIVE (NEGATIVE); CLARITY,URINE CLEAR (CLEAR); GLUCOSE, URINE (UA) NEGATIVE (NEGATIVE); KETONES,URINE (UA) NEGATIVE (NEGATIVE); LEUKOCYTE ESTERASE, URINE NEGATIVE (NEGATIVE); NITRITE,URINE NEGATIVE (NEGATIVE); OCCULT BLOOD,URINE NEGATIVE (NEGATIVE); PH,URINE 5.5 PH (5.0-7.5); PROTEIN,URINE NEGATIVE (NEGATIVE); UROBILINOGEN,URINE 0.2 (NORMAL) E.U./dL (NORMAL)
[2019-04-19 18:56] LABS: ALBUMIN/GLOBULIN RATIO 1.1 (1.0-2.2); ALKALINE PHOSPHATASE 64 IU/L (42-121); ALT ALANINE AMINOTRANSFERASE 12 IU/L (10-60); AST ASPARTATE AMINOTRANSFERASE 17 IU/L (10-42); BILIRUBIN,TOTAL 0.6 mg/dL (0.2-1.0); BUN - BLOOD UREA NITROGEN 16 mg/dL (6-20); CARBON DIOXIDE - CO2 24 mmol/L (21-32); CHLORIDE 101 mmol/L (101-111); CHOL/HDL RATIO 3.1 (<4.4); CHOLESTEROL 119 mg/dL; CREATININE 0.8 mg/dL (0.4-1.0); GFR - MDRD 70 (>89); GLUCOSE 161 mg/dL (70-100); HDL CHOLESTEROL 39 mg/dL; LDL CHOLESTEROL,CALCULATED 59 mg/dL; LDL/HDL RATIO 1.5 (<4.4); SODIUM 138 mmol/L (135-145); TOTAL PROTEIN 7.5 g/dL (6.7-8.2); VLDL CHOLESTEROL 21 mg/dL
[2019-04-19 19:19] LABS: HB2 TOTAL 13.4 g/dL; HEMOGLOBIN A1C 1.23 g/dL; HEMOGLOBIN A1C % 10.5 % (4.6-6.2)
== END 2019-04-19 11:46 | disposition home or self-care (01) ==
LOC: LAB.WCP 11:45
PROVIDERS: ATTEND Family Medicine
DX: E11.9 Type 2 diabetes mellitus without complications (principal); R11.2 Nausea with vomiting, unspecified
CPT/HCPCS: 36415; 80053; 80061; 81001; 81003; 83036; 83721; 84443; 85025; 87086

== ENCOUNTER 2019-07-19 08:00 | Outpatient (CLI) | payer MEDICARE, MEDICAID ==
[2019-07-19 13:14] LABS: ALBUMIN 3.9 g/dL (3.2-5.5); ALBUMIN/GLOBULIN RATIO 1.1 (1.0-2.2); ALKALINE PHOSPHATASE 66 IU/L (42-121); ALT ALANINE AMINOTRANSFERASE 11 IU/L (10-60); AST ASPARTATE AMINOTRANSFERASE 12 IU/L (10-42); BILIRUBIN,TOTAL 0.8 mg/dL (0.2-1.0); BUN - BLOOD UREA NITROGEN 19 mg/dL (6-20); CALCIUM 9.2 mg/dL (8.5-10.3); CARBON DIOXIDE - CO2 28 mmol/L (21-32); CHLORIDE 103 mmol/L (101-111); CHOLESTEROL 128 mg/dL; CREATININE 0.9 mg/dL (0.4-1.0); GFR - MDRD 61 (>89); GLUCOSE 149 mg/dL (70-100); HDL CHOLESTEROL 32 mg/dL; LDL CHOLESTEROL,CALCULATED 72 mg/dL; LDL/HDL RATIO 2.3 (<4.4); SODIUM 141 mmol/L (135-145); TOTAL PROTEIN 7.4 g/dL (6.7-8.2); VLDL CHOLESTEROL 24 mg/dL
[2019-07-19 14:21] LABS: HEMOGLOBIN A1C 0.72 g/dL; HEMOGLOBIN A1C % 7.2 % (4.6-6.2)
== END 2019-07-19 23:59 | disposition home or self-care (01) ==
LOC: LAB.WCP 08:00
PROVIDERS: ATTEND Family Medicine
DX: E11.8 Type 2 diabetes mellitus with unspecified complications (principal); R11.2 Nausea with vomiting, unspecified
CPT/HCPCS: 36415; 80053; 80061; 83036; 83721

== ENCOUNTER 2019-08-27 08:00 | Outpatient (CLI) | payer MEDICARE, MEDICAID | END 2019-08-27 23:59 | disposition home or self-care (01) | LOC: LAB.R 08:00 | PROVIDERS: ATTEND Family Medicine | DX: N39.0 Urinary tract infection, site not specified (principal) | CPT/HCPCS: 87086; 87181 ==

== ENCOUNTER 2019-11-19 08:00 | Outpatient (CLI) | payer MEDICARE, MEDICAID ==
[2019-11-19 18:52] LABS: HB2 TOTAL 11.7 g/dL; HEMOGLOBIN A1C 0.76 g/dL; HEMOGLOBIN A1C % 8.1 % (4.6-6.2)
[2019-11-19 19:04] LABS: ALBUMIN 3.8 g/dL (3.2-5.5); ALBUMIN/GLOBULIN RATIO 1.4 (1.0-2.2); ALKALINE PHOSPHATASE 57 IU/L (42-121); ALT ALANINE AMINOTRANSFERASE 12 IU/L (10-60); AST ASPARTATE AMINOTRANSFERASE 15 IU/L (10-42); BILIRUBIN,TOTAL 0.7 mg/dL (0.2-1.0); BUN - BLOOD UREA NITROGEN 16 mg/dL (6-20); CALCIUM 8.7 mg/dL (8.5-10.3); CARBON DIOXIDE - CO2 27 mmol/L (21-32); CHLORIDE 103 mmol/L (101-111); CHOL/HDL RATIO 3.2 (<4.4); CHOLESTEROL 98 mg/dL; CREATININE 0.8 mg/dL (0.4-1.0); GFR - MDRD 70 (>89); GLUCOSE 89 mg/dL (70-100); HDL CHOLESTEROL 31 mg/dL; LDL CHOLESTEROL,CALCULATED 48 mg/dL; LDL/HDL RATIO 1.5 (<4.4); SODIUM 137 mmol/L (135-145); TOTAL PROTEIN 6.6 g/dL (6.7-8.2); VLDL CHOLESTEROL 19 mg/dL
== END 2019-11-19 23:59 | disposition home or self-care (01) ==
LOC: LAB.WCP 08:00
PROVIDERS: ATTEND Family Medicine
DX: E11.65 Type 2 diabetes mellitus with hyperglycemia (principal)
CPT/HCPCS: 36415; 80053; 80061; 83036; 83721

== ENCOUNTER 2019-12-18 08:00 | Outpatient (CLI) | payer MEDICARE, MEDICAID | END 2019-12-18 08:01 | disposition home or self-care (01) | LOC: LAB.R 08:00 | PROVIDERS: ATTEND Family Medicine | DX: N39.0 Urinary tract infection, site not specified (principal) | CPT/HCPCS: 87077; 87086; 87181 ==

== ENCOUNTER 2020-05-12 08:00 | Outpatient (CLI) | payer MEDICARE, MEDICAID ==
[2020-05-12 12:48] LABS: CREATININE 0.9 mg/dL (0.4-1.0)
[2020-05-12 13:15] LABS: HB2 TOTAL 13.1 g/dL; HEMOGLOBIN A1C 0.7 g/dL
== END 2020-05-12 23:59 | disposition home or self-care (01) ==
LOC: LAB.WCP 08:00
PROVIDERS: ATTEND Family Medicine
DX: E11.65 Type 2 diabetes mellitus with hyperglycemia (principal)
CPT/HCPCS: 36415; 80048; 83036

== ENCOUNTER 2020-07-07 11:24 | Outpatient (CLI) | payer MEDICARE, MEDICAID | END 2020-07-07 11:25 | disposition critical access hospital (66) | LOC: EMS 11:24 | PROVIDERS: ATTEND Surgery | DX: R10.9 Unspecified abdominal pain (principal); R73.09 Other abnormal glucose | CPT/HCPCS: A0425; A0427 ==

== ENCOUNTER 2020-07-07 11:43 | Emergency (ER) | payer MEDICARE, MEDICAID ==
[2020-07-07] MEDS ORDERED: HYDROmorphone 2 MG/ML VIAL IVP STA (12:09)
[2020-07-07] MEDS ORDERED: SODIUM CHLORIDE 0.9% 1,000 ML IV STA (12:09)
[2020-07-07 12:34] LABS: GLUCOSE, URINE (UA) NEGATIVE (NEGATIVE); KETONES,URINE (UA) TRACE mg/dL (NEGATIVE); LEUKOCYTE ESTERASE, URINE SMALL (NEGATIVE); NITRITE,URINE NEGATIVE (NEGATIVE); OCCULT BLOOD,URINE TRACE-INTA (NEGATIVE); PH,URINE 5.5 PH (5.0-7.5); PROTEIN,URINE TRACE mg/dL (NEGATIVE); UROBILINOGEN,URINE 0.2 (NORMAL) E.U./dL (NORMAL)
[2020-07-07 12:34] LABS: BASOPHILS % (AUTO) 0.2 %; EOSINOPHILS % (AUTO) 0.1 %; HGB - HEMOGLOBIN 12.2 g/dL (12.0-16.0); LYMPHOCYTES # (AUTO) 1.3 10^3/uL (1.5-3.5); LYMPHOCYTES % (AUTO) 9.3 %; MEAN CORPUSCULAR HEMOGLOBIN 31.5 pg (27.0-31.0); MEAN CORPUSCULAR HGB CONC 33.9 g/dL (32.0-36.0); MEAN PLATELET VOLUME 9.9 fL (7.9-10.8); MONOCYTES # (AUTO) 0.7 10^3/uL (0.0-1.0); NEUTROPHILS # (AUTO) 11.8 10^3/uL (1.5-6.6); NEUTROPHILS % (AUTO) 84.9 %; PLT - PLATELET COUNT 242 10^3/uL (130-450); RED BLOOD COUNT 3.87 10^6/uL (4.20-5.40); RED CELL DISTRIBUTION WIDTH 13.6 % (12.0-15.0); WHITE BLOOD COUNT 13.9 x10^3/uL (4.8-10.8)
[2020-07-07 12:42] LABS: CLARITY,URINE CLEAR (CLEAR)
[2020-07-07 12:43] LABS: BILIRUBIN,URINE NEGATIVE (NEGATIVE); ICTOTEST,URINE NEGATIVE
--- NOTE | 2020-07-07 12:44 | ED Physician Documentation ---
PD HPI ABD PAIN - Stated complaint Stated Complaint: AB PX - Chief complaint Chief Complaint: Abd Pain - History obtained from History obtained from: Patient - Additional information Additional information: Patient comes emergency department complaining of diffuse abdominal pain for the last approximately 2 days. Patient states that 2 evenings ago, she ate some mini tacos with a friend and noticed that her stomach began to hurt. Patient states that later that evening, she tried to have a burger and fries and that she could not tolerate eating them. The next day, patient noted that the pain seemed a little bit worse and she was again unable to eat that morning. However, yesterday evening, she was able to have some eggs and states that this did not seem to worsen the pain. Patient denies any nausea or vomiting. She states that she has been having normal bowel movements. No dysuria. No known history of gallbladder issues in the patient or family. Patient has no history of ulcers. She still has her appendix as far she knows. No black or bloody stool. No fevers. No chest symptoms. No other complaints at this time. Review of Systems Ten Systems: 10 systems reviewed and negative Constitutional: reports: Reviewed and negative Eyes: reports: Reviewed and negative Ears: reports: Reviewed and negative Nose: reports: Reviewed and negative Throat: reports: Reviewed and negative Cardiac: reports: Reviewed and negative Respiratory: reports: Reviewed and negative GI: reports: Abdominal Pain : reports: Reviewed and negative Skin: reports: Reviewed and negative Musculoskeletal: reports: Reviewed and negative Neurologic: reports: Reviewed and negative Psychiatric: reports: Reviewed and negative Endocrine: reports: Reviewed and negative Immunocompromised: reports: Reviewed and negative PD PAST MEDICAL HISTORY - Past Medical History Cardiovascular: Hypertension, High cholesterol, Coronary artery disease, Other Respiratory: None Neuro: TIA, Peripheral neuropathy Endocrine/Autoimmune: Type 2 diabetes, HyPERthyroidism GI: GERD, Chronic constipation, Hemorrhoids : Incontinence HEENT: Chronic vision loss Psych: None Musculoskeletal: Osteoarthritis Derm: Other - Past Surgical History Past Surgical History: Yes Ortho: Rotator cuff repair, Spine surgery Cardiovascular: CABG, Coronary stent - Present Medications Home Medications: Ambulatory Orders Medication Instructions Recorded Confirmed Metformin HCl 1,000 mg PO BIDWM 04/21/14 07/07/20 Metoprolol Tartrate 50 mg PO BID 04/21/14 07/07/20 Insulin Glargine [Lantus] 28 unit SUBQ QDBREAKFAST 09/04/14 07/07/20 Aspirin [Aspir 81] 81 mg PO DAILY 09/19/14 07/07/20 Losartan [Cozaar] 100 mg PO DAILY 09/19/14 07/07/20 Pregabalin [Lyrica] 50 mg PO TID 09/19/14 07/07/20 Atorvastatin Calcium [Lipitor] 20 mg PO QPM 12/31/14 07/07/20 Chlorthalidone 25 mg PO DAILY 12/31/14 07/07/20 Insulin Lispro [Humalog] 6 units SQ TIDWM 12/31/14 07/07/20 Cyanocobalamin (Vitamin B-12) 1,000 mcg PO DAILY 05/09/19 07/07/20 [Vitamin B-12 (100mcg tab)] Echinacea Purpurea,Angustif Xt 760 mg PO DAILY 05/09/19 07/07/20 [Echinacea Extract 125 mg Cap] Nitroglycerin [Nitrostat] 1 tab SL Q5MIN PRN 05/09/19 07/07/20 Sulfamethox/Trimeth 800/160 1 each PO BID #14 tablet 07/07/20 [Bactrim Ds 800/160] - Allergies Allergies/Adverse Reactions: Allergies Allergy/AdvReac Type Severity Reaction Status Date / Time No Known Drug Allergies Allergy Verified 07/07/20 12:00 - Social History Does the pt smoke?: No Smoking Status: Never smoker Does the pt drink ETOH?: No PD ED PE NORMAL - Vitals Vital signs reviewed: Yes - General General: Alert and oriented X 3 (Patient is bright and alert and generally well- appearing.), No acute distress - HEENT HEENT: Atraumatic, PERRL, EOMI, Moist mucous membranes - Neck Neck: Supple, no meningeal sign - Cardiac Cardiac: RRR, No murmur, Strong equal pulses - Respiratory Respiratory: No respiratory distress, Clear bilaterally - Abdomen Abdomen: Soft, Non distended, Other (Moderate tenderness diffusely throughout the patient's abdomen. No rebound or guarding.) - Back Back: No CVA TTP - Derm Derm: Normal color, Warm and dry, No rash - Extremities Extremities: No deformity, No calf tenderness / cord, Other (Mild edema right lower leg and ankle.) - Neuro Neuro: Alert and oriented X 3, chef's assistant 2-12 intact, Normal speech, Other (Grossly normal.) - Psych Psych: Normal mood, Normal affect Results - Vitals Vitals: Vital Signs - 24 hr 07/07/20 07/07/20 07/07/20 11:48 12:20 12:40 Temperature 36.6 C Heart Rate 113 H 93 91 Respiratory 20 20 16 Rate Blood Pressure 178/69 H 164/68 H 184/107 H O2 Saturation 97 97 96 07/07/20 07/07/20 07/07/20 13:32 14:16 14:32 Temperature 36.7 C Heart Rate 83 79 84 Respiratory 17 18 20 Rate Blood Pressure 189/67 H 166/64 H O2 Saturation 91 L 94 96 07/07/20 07/07/20 07/07/20 14:33 15:18 15:38 Temperature Heart Rate 87 79 Respiratory 18 18 Rate Blood Pressure 166/64 H 165/66 H 154/62 H O2 Saturation 97 94 07/07/20 07/07/20 16:03 16:34 Temperature 36.7 C Heart Rate 85 92 Respiratory 15 18 Rate Blood Pressure 161/78 H 160/75 H O2 Saturation 97 97 Oxygen O2 Source Room air - Labs Labs: Laboratory Tests 07/07/20 07/07/20 07/07/20 12:15 12:30 12:30 WBC 13.9 H RBC 3.87 L Hgb 12.2 Hct 36.0 L MCV 93.0 MCH 31.5 H MCHC 33.9 RDW 13.6 Plt Count 242 MPV 9.9 Neut # (Auto) 11.8 H Lymph # (Auto) 1.3 L [place] # (Auto) 0.7 Eos # (Auto) 0.0 Baso # (Auto) 0.0 Absolute Nucleated RBC 0.00 Nucleated RBC % 0.0 Sodium 137 Potassium 3.0 L Chloride 98 L Carbon Dioxide 26 Anion Gap 13.0 BUN 24 H Creatinine 1.0 Estimated GFR (MDRD) 54 L Glucose 159 H Lactic Acid Calcium 9.0 Total Bilirubin 1.8 H AST 12 ALT 13 Alkaline Phosphatase 62 Total Protein 6.9 Albumin 3.6 Globulin 3.3 Albumin/Globulin Ratio 1.1 Lipase 23 Urine Color DARK YELLOW Urine Clarity CLEAR Urine pH 5.5 Ur Specific [place] 1.020 Urine Protein TRACE Urine Glucose (UA) NEGATIVE Urine Ketones TRACE Urine Occult Blood TRACE-INTA Urine Nitrite NEGATIVE Urine Bilirubin NEGATIVE Urine Urobilinogen 0.2 (NORMAL) Ur Leukocyte Esterase SMALL H Urine RBC NONE Urine WBC 6-10 H Urine WBC Clumps PRESENT Ur Squamous Epith Cells FEW Squamous Urine Bacteria Few Ur Microscopic Review INDICATED Urine Culture Comments INDICATED 07/07/20 14:20 WBC RBC Hgb Hct MCV MCH MCHC RDW Plt Count MPV Neut # (Auto) Lymph # (Auto) [place] # (Auto) Eos # (Auto) Baso # (Auto) Absolute Nucleated RBC Nucleated RBC % Sodium Potassium Chloride Carbon Dioxide Anion Gap BUN Creatinine Estimated GFR (MDRD) Glucose Lactic Acid 1.0 Calcium Total Bilirubin AST ALT Alkaline Phosphatase Total Protein Albumin Globulin Albumin/Globulin Ratio Lipase Urine Color Urine Clarity Urine pH Ur Specific [place] Urine Protein Urine Glucose (UA) Urine Ketones Urine Occult Blood Urine Nitrite Urine Bilirubin Urine Urobilinogen Ur Leukocyte Esterase Urine RBC Urine WBC Urine WBC Clumps Ur Squamous Epith Cells Urine Bacteria Ur Microscopic Review Urine Culture Comments - Rads (name of study) acute abdominal XR Radiology: Final report received, EMP read indepedently, See rad report (constipation) abdominal US Radiology: Final report received, EMP read indepedently, See rad report (Possible small stones or sludge in the gallbladder without evidence of cholecystitis. Other chronic findings unchanged.) PD MEDICAL DECISION MAKING - ED course Complexity details: reviewed old records, reviewed results, re-evaluated patie nt, considered differential, d/w patient ED course: Patient was worked up with labs, ultrasound, and urinalysis. Her urinalysis showed mild UTI. Lactate level was normal. CBC showed white blood cell count 13.9. Ultrasound was unremarkable for acute findings and acute abdominal x-ray series showed no free air or pneumatosis coli or obstruction. Significant constipation was noted. The patient continued to actually look fairly good in the emergency department, smiling, talking, and able to transfer herself using her walker without pain or lightheadedness. Patient did not appear septic, and her abdominal exam was nonacute. She was afebrile and without vomiting and I felt that at this point in time, she could go home. We do not have CT scan today, as our CT scanner is being repaired, but I do not find indication to transfer this patient for the sole purpose of obtaining a CT. I discussed with the patient that if she begins to feel worse in the next 24 hours, she ought to return to the emergency department immediately for further. Patient was started on antibiotics for her UTI here. She was agreeable to the plan. She has been given a prescription for Bactrim to take at home. Departure - Departure Disposition: 01 Home, Self Care Clinical Impression: Abdominal pain Qualifiers: Abdominal location: generalized Qualified Code(s): R10.84 - Generalized abdominal pain Constipation Qualifiers: Constipation type: unspecified constipation type Qualified Code(s): K59.00 - Constipation, unspecified UTI (urinary tract infection) Qualifiers: Urinary tract infection type: acute cystitis Hematuria presence: without hematuria Qualified Code(s): N30.00 - Acute cystitis without hematuria Condition: Stable Instructions: ED Abdominal Pain Unkn Cause, ED Constipation, ED UTI Cystitis Female Prescriptions: Sulfamethox/Trimeth 800/160 [Bactrim Ds 800/160] 1 each PO BID #14 tablet Comments: Your labs look fairly good, though your white blood cell count is mildly elevated. You do not have any specific tenderness over organs which should generally be troublesome. Additionally, you have no fever and there is no evidence of sepsis or a perforated hollow organ at this time. You have a mild urinary tract infection for which you will be started on antibiotics. Please take the antibiotics as directed for the next week. If you are not feeling better in the next couple of days, or if you feel worse tomorrow or the next day, please return to the emergency department for reevaluation. Otherwise, you may finish your course of antibiotics and follow-up with your primary care physician. Please be sure to eat plenty of high-fiber foods, as you are abdominal x-ray does show a backup of stool throughout your large intestine. T here is no evidence of an inflamed gallbladder or gallbladder blockage at this time.
[2020-07-07 12:47] LABS: ALBUMIN 3.6 g/dL (3.2-5.5); ALBUMIN/GLOBULIN RATIO 1.1 (1.0-2.2); BILIRUBIN,TOTAL 1.8 mg/dL (0.2-1.0); TOTAL PROTEIN 6.9 g/dL (6.7-8.2)
[2020-07-07 12:51] LABS: BACTERIA,URINE Few /HPF (None Seen); SQUAMOUS EPITHELIAL CELL,UR FEW Squamous (<= Few); WBC CLUMPS,URINE PRESENT
--- NOTE | 2020-07-07 14:40 | Ultrasound Report ---
PROCEDURE: Abdomen Limited INDICATIONS: RUQ abd pain after eating TECHNIQUE: Real-time scanning was performed of the abdominal and retroperitoneal organs, with image documentatio n. COMPARISON: CT abdomen/pelvis 04/30. FINDINGS: Liver: Liver is normal in size and diffusely mildly increased in echogenicity. Gallbladder: Echogenic foci without shadowing in the gallbladder may represent small nonshadowing sto iggy or sludge. There is no gallbladder wall thickening pericholecystic fluid. Biliary ducts: Intrahepatic bile ducts are non-dilated. Extrahepatic bile duct caliber measures 5 m m. Normal is 6-7 mm or less in diameter, or 10 mm or less post-cholecystectomy. Pancreas: Visualized portions of the pancreas are sonographically normal. Kidneys: The right kidney is normal in size, measuring 11.2 cm. Multiple cysts are seen in the right kidney, the largest of which is a simple cyst in the interpolar region measuring 6 x 6.3 x 6.6 cm. Th ere is no hydronephrosis. Aorta: Visualized aorta is normal in caliber at less than 3 cm. IVC: Intrahepatic inferior vena cava is patent. Miscellaneous: No free right upper quadrant fluid. IMPRESSION: 1. Small nonshadowing stones versus sludge in the dependent portion of the gallbladder without signs of acute cholecystitis. 2. Mildly increased hepatic echogenicity is nonspecific, but most commonly encountered in the settin g of diffuse hepatic steatosis although other sources of hepatocellular disease are not excluded. [facility] clinical correlation. Reviewed by: Kunal Wallace MD on 07/07/2020 2:38 PM PDT Approved by: Kunal Wallace MD on 07/07/2020 2:38 PM PDT Station ID: [id number]
--- NOTE | 2020-07-07 15:37 | XRAY Report ---
PROCEDURE: Abdomen Acute INDICATIONS: diffuse abdominal pain/tenderness TECHNIQUE: One view chest and two views of the abdomen were acquired. COMPARISON: Correlation is made with prior abdomen and pelvis CT 04/18/2017. FINDINGS: Surgical changes and devices: Post CABG changes are seen. Chest: Lungs are clear. No pleural effusions. No pneumoperitoneum. The aorta is prominent and t ortuous. The cardiac contours are within normal limits. Abdomen: Bowel gas pattern is normal. There is a moderate amount of stool seen within the colon. No suspicious calcifications. Visualized solid organ contours appear normal. Bones: No suspicious bony lesions. Age-appropriate degenerative changes are seen. IMPRESSION: There is a moderate amount of stool seen within the colon. Please correlate with clinica l constipation. Postoperative and degenerative changes are seen. Reviewed by: David Montanez MD on 07/07/2020 2:36 PM AKSHI Approved by: David Montanez MD on 07/07/2020 2:36 PM AKDT Station ID: [id number]
[2020-07-07] MEDS ORDERED: SULFAMETH/TRIMETH DS 800/160 MG TABLET PO STA (15:56)
[2020-07-07 16:35] VITALS: BP 160/75
== END 2020-07-07 16:47 | disposition home or self-care (01) ==
LOC: EDUNIT# → ED 11:43
DX: K59.00 Constipation, unspecified (principal); N30.00 Acute cystitis without hematuria; E11.42 Type 2 diabetes mellitus with diabetic polyneuropathy; Z79.4 Long term (current) use of insulin; I10 Essential (primary) hypertension; Z79.82 Long term (current) use of aspirin
CPT/HCPCS: 36415; 74022; 76705; 80053; 81001; 83605; 83690; 85025; 87086; 96361; 96374; 99284; A9270; J1170; 81003

== ENCOUNTER 2020-07-16 08:00 | Outpatient (CLI) | payer MEDICARE, MEDICAID ==
[2020-07-16 18:22] LABS: BASOPHILS % (AUTO) 0.6 %; EOSINOPHILS # (AUTO) 0.2 10^3/uL (0.0-0.7); EOSINOPHILS % (AUTO) 3.2 %; HGB - HEMOGLOBIN 11.6 g/dL (12.0-16.0); LYMPHOCYTES # (AUTO) 1.4 10^3/uL (1.5-3.5); LYMPHOCYTES % (AUTO) 19.8 %; MEAN CORPUSCULAR HEMOGLOBIN 30.3 pg (27.0-31.0); MEAN CORPUSCULAR HGB CONC 30.8 g/dL (32.0-36.0); MEAN CORPUSCULAR VOLUME 98.4 fL (81.0-99.0); MEAN PLATELET VOLUME 10.4 fL (7.9-10.8); MONOCYTES # (AUTO) 0.5 10^3/uL (0.0-1.0); MONOCYTES % (AUTO) 7.5 %; NEUTROPHILS # (AUTO) 4.9 10^3/uL (1.5-6.6); NEUTROPHILS % (AUTO) 68.3 %; PLT - PLATELET COUNT 318 10^3/uL (130-450); RED BLOOD COUNT 3.83 10^6/uL (4.20-5.40); RED CELL DISTRIBUTION WIDTH 13.9 % (12.0-15.0); WHITE BLOOD COUNT 7.2 x10^3/uL (4.8-10.8)
[2020-07-16 18:39] LABS: ALBUMIN/GLOBULIN RATIO 1.3 (1.0-2.2); BILIRUBIN,TOTAL 0.7 mg/dL (0.2-1.0); CALCIUM 9.7 mg/dL (8.5-10.3); CREATININE 1.3 mg/dL (0.4-1.0); TOTAL PROTEIN 7.1 g/dL (6.7-8.2)
== END 2020-07-16 23:59 | disposition home or self-care (01) ==
LOC: LAB.WCP 08:00
PROVIDERS: ATTEND Family Medicine
DX: E87.6 Hypokalemia (principal); R10.9 Unspecified abdominal pain
CPT/HCPCS: 36415; 80053; 85025

== ENCOUNTER 2020-08-18 08:00 | Outpatient (CLI) | payer MEDICARE, MEDICAID ==
[2020-08-18 13:58] LABS: ALBUMIN/GLOBULIN RATIO 1.4 (1.0-2.2); ALKALINE PHOSPHATASE 61 IU/L (42-121); ALT ALANINE AMINOTRANSFERASE 14 IU/L (10-60); AST ASPARTATE AMINOTRANSFERASE 13 IU/L (10-42); BILIRUBIN,TOTAL 0.9 mg/dL (0.2-1.0); BUN - BLOOD UREA NITROGEN 18 mg/dL (6-20); CALCIUM 9.4 mg/dL (8.5-10.3); CARBON DIOXIDE - CO2 30 mmol/L (21-32); CHLORIDE 102 mmol/L (101-111); CHOL/HDL RATIO 3.6 (<4.4); CHOLESTEROL 122 mg/dL; CREATININE 0.9 mg/dL (0.4-1.0); GLUCOSE 121 mg/dL (70-100); HDL CHOLESTEROL 34 mg/dL; LDL CHOLESTEROL,CALCULATED 69 mg/dL; SODIUM 141 mmol/L (135-145); TOTAL PROTEIN 6.9 g/dL (6.7-8.2); VLDL CHOLESTEROL 19 mg/dL
== END 2020-08-18 23:59 | disposition home or self-care (01) ==
LOC: LAB.WCP 08:00
PROVIDERS: ATTEND Family Medicine
DX: E11.9 Type 2 diabetes mellitus without complications (principal)
CPT/HCPCS: 36415; 80053; 80061; 83036; 83721

== ENCOUNTER 2020-11-27 08:00 | Outpatient (CLI) | payer MEDICARE, MEDICAID ==
[2020-11-27 18:05] LABS: BASOPHILS # (AUTO) 0.1 10^3/uL (0.0-0.1); BASOPHILS % (AUTO) 0.6 %; EOSINOPHILS # (AUTO) 0.2 10^3/uL (0.0-0.7); EOSINOPHILS % (AUTO) 2.5 %; HGB - HEMOGLOBIN 12.5 g/dL (12.0-16.0); LYMPHOCYTES # (AUTO) 1.2 10^3/uL (1.5-3.5); LYMPHOCYTES % (AUTO) 13.6 %; MEAN CORPUSCULAR HEMOGLOBIN 30.9 pg (27.0-31.0); MEAN CORPUSCULAR HGB CONC 31.9 g/dL (32.0-36.0); MEAN CORPUSCULAR VOLUME 96.8 fL (81.0-99.0); MEAN PLATELET VOLUME 11.1 fL (7.9-10.8); MONOCYTES # (AUTO) 0.6 10^3/uL (0.0-1.0); MONOCYTES % (AUTO) 7.1 %; NEUTROPHILS # (AUTO) 6.8 10^3/uL (1.5-6.6); NEUTROPHILS % (AUTO) 75.9 %; PLT - PLATELET COUNT 271 10^3/uL (130-450); RED BLOOD COUNT 4.05 10^6/uL (4.20-5.40); RED CELL DISTRIBUTION WIDTH 13.2 % (12.0-15.0); WHITE BLOOD COUNT 8.9 x10^3/uL (4.8-10.8)
[2020-11-27 18:34] LABS: CREATININE,URINE 155.6 mg/dL; MICROALBUM/CREATININE RATIO,UR 38.6 ug/mg (<30.0)
[2020-11-27 18:37] LABS: ALBUMIN 3.9 g/dL (3.2-5.5); ALBUMIN/GLOBULIN RATIO 1.2 (1.0-2.2); ALKALINE PHOSPHATASE 72 IU/L (42-121); ALT ALANINE AMINOTRANSFERASE 11 IU/L (10-60); AST ASPARTATE AMINOTRANSFERASE 14 IU/L (10-42); BILIRUBIN,TOTAL 0.9 mg/dL (0.2-1.0); BUN - BLOOD UREA NITROGEN 25 mg/dL (6-20); CALCIUM 9.2 mg/dL (8.5-10.3); CARBON DIOXIDE - CO2 27 mmol/L (21-32); CHLORIDE 102 mmol/L (101-111); CHOLESTEROL 127 mg/dL; GLUCOSE 174 mg/dL (70-100); HDL CHOLESTEROL 32 mg/dL; LDL CHOLESTEROL,CALCULATED 47 mg/dL; LDL/HDL RATIO 1.5 (<4.4); SODIUM 138 mmol/L (135-145); TOTAL PROTEIN 7.1 g/dL (6.7-8.2); VLDL CHOLESTEROL 48 mg/dL
[2020-11-27 20:03] LABS: HEMOGLOBIN A1c% 7.3 % (4.27-6.07)
== END 2020-11-27 23:59 | disposition home or self-care (01) ==
LOC: LAB.WCP 08:00
PROVIDERS: ATTEND Family Medicine
DX: E11.9 Type 2 diabetes mellitus without complications (principal)
CPT/HCPCS: 36415; 80053; 80061; 82043; 82570; 83036; 83721; 84443; 85025

== ENCOUNTER 2020-12-02 08:00 | Outpatient (CLI) | payer MEDICARE, MEDICAID ==
[2020-12-02 19:02] LABS: BASOPHILS % (AUTO) 0.4 %; EOSINOPHILS # (AUTO) 0.2 10^3/uL (0.0-0.7); EOSINOPHILS % (AUTO) 2.4 %; HGB - HEMOGLOBIN 12.8 g/dL (12.0-16.0); LYMPHOCYTES # (AUTO) 1.3 10^3/uL (1.5-3.5); LYMPHOCYTES % (AUTO) 14.7 %; MEAN CORPUSCULAR HEMOGLOBIN 31.1 pg (27.0-31.0); MEAN CORPUSCULAR HGB CONC 33.1 g/dL (32.0-36.0); MEAN CORPUSCULAR VOLUME 93.9 fL (81.0-99.0); MEAN PLATELET VOLUME 10.7 fL (7.9-10.8); MONOCYTES # (AUTO) 0.7 10^3/uL (0.0-1.0); MONOCYTES % (AUTO) 7.1 %; NEUTROPHILS # (AUTO) 6.8 10^3/uL (1.5-6.6); PLT - PLATELET COUNT 274 10^3/uL (130-450); RED BLOOD COUNT 4.12 10^6/uL (4.20-5.40); WHITE BLOOD COUNT 9.1 x10^3/uL (4.8-10.8)
[2020-12-02 19:26] LABS: ALBUMIN/GLOBULIN RATIO 1.4 (1.0-2.2); BILIRUBIN,TOTAL 0.7 mg/dL (0.2-1.0); CALCIUM 9.6 mg/dL (8.5-10.3); CREATININE 0.8 mg/dL (0.4-1.0); TOTAL PROTEIN 6.9 g/dL (6.7-8.2)
== END 2020-12-02 08:01 | disposition home or self-care (01) ==
LOC: LAB.WCP 08:00
PROVIDERS: ATTEND Family Medicine
DX: I25.10 Atherosclerotic heart disease of native coronary artery without angina pectoris (principal)
CPT/HCPCS: 36415; 80053; 84484; 85025

== ENCOUNTER 2020-12-02 15:01 | Outpatient (CLI) | payer MEDICARE, MEDICAID ==
--- NOTE | 2020-12-02 15:38 | XRAY Report ---
PROCEDURE: Chest 2 View X-Ray INDICATIONS: CAD TECHNIQUE: 2 view(s) of the chest. COMPARISON: None. FINDINGS: Surgical changes and devices: Median sternotomy. Lungs and pleura: No pleural effusions or pneumothorax. Lungs are clear. Mediastinum: Mediastinal contours are normal. Heart size is enlarged. Bones and chest wall: No suspicious bony abnormalities. Soft tissues appear unremarkable. IMPRESSION: 1. Cardiomegaly. 2. No acute process. Reviewed by: Little Nunez MD on 12/02/2020 3:37 PM PST Approved by: Little Nunez MD on 12/02/2020 3:37 PM PST Station ID: [id number]
== END 2020-12-02 15:02 | disposition home or self-care (01) ==
LOC: DI.WCP 15:01
PROVIDERS: ATTEND Family Medicine
DX: I25.10 Atherosclerotic heart disease of native coronary artery without angina pectoris (principal)

== ENCOUNTER 2020-12-02 20:42 | Outpatient (CLI) | payer MEDICARE, MEDICAID | END 2020-12-02 20:43 | disposition short-term general hospital (02) | LOC: EMS 20:42 | PROVIDERS: ATTEND Surgery | DX: R07.9 Chest pain, unspecified (principal) | CPT/HCPCS: A0425; A0429 ==

== ENCOUNTER 2020-12-16 08:00 | Outpatient (CLI) | payer MEDICARE, MEDICAID ==
[2020-12-16 18:51] LABS: CALCIUM 9.3 mg/dL (8.5-10.3); CREATININE 1.4 mg/dL (0.4-1.0)
[2020-12-16 19:14] LABS: BASOPHILS # (AUTO) 0.1 10^3/uL (0.0-0.1); BASOPHILS % (AUTO) 0.6 %; EOSINOPHILS # (AUTO) 0.2 10^3/uL (0.0-0.7); EOSINOPHILS % (AUTO) 1.8 %; HGB - HEMOGLOBIN 11.6 g/dL (12.0-16.0); LYMPHOCYTES # (AUTO) 1.2 10^3/uL (1.5-3.5); LYMPHOCYTES % (AUTO) 8.7 %; MEAN CORPUSCULAR HEMOGLOBIN 30.4 pg (27.0-31.0); MEAN CORPUSCULAR HGB CONC 30.5 g/dL (32.0-36.0); MEAN CORPUSCULAR VOLUME 99.7 fL (81.0-99.0); MEAN PLATELET VOLUME 10.9 fL (7.9-10.8); MONOCYTES % (AUTO) 7.1 %; NEUTROPHILS % (AUTO) 81.2 %; PLT - PLATELET COUNT 418 10^3/uL (130-450); RED BLOOD COUNT 3.81 10^6/uL (4.20-5.40); RED CELL DISTRIBUTION WIDTH 13.7 % (12.0-15.0); WHITE BLOOD COUNT 13.5 x10^3/uL (4.8-10.8)
== END 2020-12-16 23:59 | disposition home or self-care (01) ==
LOC: LAB.WCP 08:00
PROVIDERS: ATTEND Family Medicine
DX: N39.0 Urinary tract infection, site not specified (principal)
CPT/HCPCS: 36415; 80048; 85025; 87086

== ENCOUNTER 2021-01-20 08:00 | Outpatient (CLI) | payer MEDICARE, MEDICAID ==
[2021-01-20 12:07] LABS: BASOPHILS # (AUTO) 0.1 10^3/uL (0.0-0.1); BASOPHILS % (AUTO) 0.5 %; EOSINOPHILS # (AUTO) 0.2 10^3/uL (0.0-0.7); EOSINOPHILS % (AUTO) 2.1 %; HCT - HEMATOCRIT 36.4 % (37.0-47.0); HGB - HEMOGLOBIN 11.9 g/dL (12.0-16.0); LYMPHOCYTES # (AUTO) 1.2 10^3/uL (1.5-3.5); LYMPHOCYTES % (AUTO) 11.4 %; MEAN CORPUSCULAR HEMOGLOBIN 30.6 pg (27.0-31.0); MEAN CORPUSCULAR HGB CONC 32.7 g/dL (32.0-36.0); MEAN CORPUSCULAR VOLUME 93.6 fL (81.0-99.0); MEAN PLATELET VOLUME 10.5 fL (7.9-10.8); MONOCYTES # (AUTO) 0.9 10^3/uL (0.0-1.0); MONOCYTES % (AUTO) 7.9 %; NEUTROPHILS # (AUTO) 8.4 10^3/uL (1.5-6.6); NEUTROPHILS % (AUTO) 77.8 %; PLT - PLATELET COUNT 291 10^3/uL (130-450); RED BLOOD COUNT 3.89 10^6/uL (4.20-5.40); RED CELL DISTRIBUTION WIDTH 13.9 % (12.0-15.0); WHITE BLOOD COUNT 10.8 x10^3/uL (4.8-10.8)
[2021-01-20 12:34] LABS: ALBUMIN 3.9 g/dL (3.2-5.5); ALBUMIN/GLOBULIN RATIO 1.2 (1.0-2.2); ALKALINE PHOSPHATASE 68 IU/L (42-121); ALT ALANINE AMINOTRANSFERASE 12 IU/L (10-60); AST ASPARTATE AMINOTRANSFERASE 15 IU/L (10-42); BUN - BLOOD UREA NITROGEN 20 mg/dL (6-20); CALCIUM 9.1 mg/dL (8.5-10.3); CARBON DIOXIDE - CO2 25 mmol/L (21-32); CHLORIDE 104 mmol/L (101-111); CHOL/HDL RATIO 3.2 (<4.4); CHOLESTEROL 110 mg/dL; CREATININE 0.9 mg/dL (0.4-1.0); GFR - MDRD 61 (>89); GLUCOSE 119 mg/dL (70-100); HDL CHOLESTEROL 34 mg/dL; LDL CHOLESTEROL,CALCULATED 56 mg/dL; LDL/HDL RATIO 1.6 (<4.4); POTASSIUM 4.1 mmol/L (3.5-5.0); SODIUM 139 mmol/L (135-145); TOTAL PROTEIN 7.1 g/dL (6.7-8.2); TRIGLYCERIDES 102 mg/dL; VLDL CHOLESTEROL 20 mg/dL
== END 2021-01-20 23:59 | disposition home or self-care (01) ==
LOC: LAB.WCP 08:00
PROVIDERS: ATTEND Family Medicine
DX: Z95.9 Presence of cardiac and vascular implant and graft, unspecified (principal); N39.0 Urinary tract infection, site not specified
CPT/HCPCS: 36415; 80053; 80061; 81001; 83721; 85025; 87086

== ENCOUNTER 2021-01-22 08:00 | Outpatient (CLI) | payer MEDICAID, MEDICARE ==
[2021-01-22 14:27] LABS: BILIRUBIN,URINE NEGATIVE (NEGATIVE); GLUCOSE, URINE (UA) NEGATIVE (NEGATIVE); KETONES,URINE (UA) NEGATIVE (NEGATIVE); LEUKOCYTE ESTERASE, URINE LARGE (NEGATIVE); NITRITE,URINE POSITIVE (NEGATIVE); OCCULT BLOOD,URINE TRACE-INTA (NEGATIVE); PH,URINE >=9.0 PH (5.0-7.5); PROTEIN,URINE 100 mg/dL (NEGATIVE); UROBILINOGEN,URINE 0.2 (NORMAL) E.U./dL (NORMAL)
[2021-01-22 14:28] LABS: CLARITY,URINE SL. CLOUDY (CLEAR)
[2021-01-22 14:54] LABS: WBC,URINE >25 /HPF (0-5)
[2021-01-22 14:55] LABS: BACTERIA,URINE Many /HPF (None Seen); EPITHELIAL CELLS,UR RARE Transitional /HPF (<= Few); RBC,URINE 0-5 /HPF (0-5); SQUAMOUS EPITHELIAL CELL,UR NONE SEEN (<= Few)
== END 2021-01-22 23:59 | disposition home or self-care (01) ==
LOC: LAB.WCP 08:00
PROVIDERS: ATTEND Family Medicine
DX: N39.0 Urinary tract infection, site not specified (principal)
CPT/HCPCS: 81001; 87086

== ENCOUNTER 2021-04-06 13:38 | Emergency (ER) | payer MEDICARE, MEDICAID ==
[2021-04-06 13:46] VITALS: BP 139/67
[2021-04-06] MEDS ORDERED: SODIUM CHLORIDE 0.9% 1,000 ML IV STA ×2 (13:51→14:09)
[2021-04-06] MEDS ORDERED: PANTOPRAZOLE 40 MG VIAL IVP STA (14:09)
[2021-04-06] MEDS ORDERED: ONDANSETRON 4 MG/2 ML VIAL IVP STA (14:09)
--- NOTE | 2021-04-06 14:11 | ED Physician Documentation ---
PD HPI ABD PAIN - Stated complaint Stated Complaint: N/V LOW BP SENT BY DR - Chief complaint Chief Complaint: Abd Pain - History obtained from History obtained from: Patient - Additional information Additional information: 80-year-old woman with history of type 2 diabetes, coronary disease with remote CABG in November new stents in the RCA. She has had 2 weeks of nausea and vomiting with epigastric pain. Generally constipated, does not notice a change in the color or consistency of her bowel movements but does not look per se. No history of ulcers. She was seen at urgent care and sent here because she was orthostatic. Review of Systems Ten Systems: 10 systems reviewed and negative Constitutional: reports: Reviewed and negative Eyes: reports: Reviewed and negative Ears: reports: Reviewed and negative Nose: reports: Reviewed and negative Throat: reports: Reviewed and negative PD PAST MEDICAL HISTORY - Past Medical History Past Medical History: Yes Cardiovascular: Hypertension, High cholesterol, Coronary artery disease, Other Respiratory: None Neuro: TIA, Peripheral neuropathy Endocrine/Autoimmune: Type 2 diabetes, HyPERthyroidism GI: GERD, Chronic constipation, Hemorrhoids : Incontinence HEENT: Chronic vision loss Psych: None Musculoskeletal: Osteoarthritis Derm: Other - Past Surgical History Past Surgical History: Yes Ortho: Rotator cuff repair, Spine surgery Cardiovascular: CABG, Coronary stent - Present Medications Home Medications: Ambulatory Orders Medication Instructions Recorded Confirmed Metformin HCl 1,000 mg PO BIDWM 04/21/14 04/06/21 Metoprolol Tartrate 100 mg PO BID 04/21/14 04/06/21 Insulin Glargine [Lantus] 0 unit SUBQ QDBREAKFAST 09/04/14 04/06/21 Aspirin [Aspir 81] 81 mg PO DAILY 09/19/14 04/06/21 Losartan [Cozaar] 100 mg PO DAILY 09/19/14 04/06/21 Pregabalin [Lyrica] 50 mg PO TID 09/19/14 04/06/21 Atorvastatin Calcium [Lipitor] 40 mg PO QPM 12/31/14 04/06/21 Insulin Lispro [Humalog] 0 units SQ TIDWM 12/31/14 04/06/21 Cyanocobalamin (Vitamin B-12) 1,000 mcg PO DAILY 05/09/19 04/06/21 [Vitamin B-12 (100mcg tab)] Echinacea Purpurea,Angustif Xt 760 mg PO DAILY 05/09/19 04/06/21 [Echinacea Extract 125 mg Cap] Clopidogrel [Plavix] 75 mg PO DAILY 04/06/21 04/06/21 Dorifenacin 15 mg DAILY 04/06/21 04/06/21 Ondansetron Odt [Zofran] 4 mg TL Q6H PRN #10 tablet 04/06/21 amLODIPine [Norvasc] 10 mg PO DAILY 04/06/21 04/06/21 - Allergies Allergies/Adverse Reactions: Allergies Allergy/AdvReac Type Severity Reaction Status Date / Time No Known Drug Allergies Allergy Verified 04/06/21 13:41 - Social History Does the pt smoke?: No Smoking Status: Never smoker Does the pt drink ETOH?: No PD ED PE NORMAL - Vitals Vital signs reviewed: Yes - General General: Alert and oriented X 3, No acute distress, Other (She appears quite pale.) - HEENT HEENT: PERRL, EOMI - Neck Neck: Supple, no meningeal sign, No bony TTP - Cardiac Cardiac: RRR, No murmur - Respiratory Respiratory: No respiratory distress, Clear bilaterally - Abdomen Abdomen: Normal bowel sounds, Soft, Non tender - Back Back: No CVA TTP, No spinal TTP - Derm Derm: Normal color, Warm and dry - Extremities Extremities: No edema, No calf tenderness / cord - Neuro Neuro: Alert and oriented X 3, Normal speech Results - Vitals Vitals: Vital Signs - 24 hr 04/06/21 13:41 Temperature 36.8 C Heart Rate 74 Respiratory 16 Rate Blood Pressure 139/67 H O2 Saturation 96 Oxygen O2 Source Room air - EKG (time done) 1357 Rate: Rate (enter#) (70) Rhythm: NSR [place]: Normal Intervals: RBBB, Other (short ID) Ischemia: Q waves (inferior). No: ST elevation c/w ischemia, ST elevation c/w repol, ST depression Compare to prior EKG: Old EKG unavailable - Labs Labs: Laboratory Tests 04/06/21 04/06/21 04/06/21 14:15 14:15 14:15 WBC 11.5 H RBC 4.07 L Hgb 12.4 Hct 36.8 L MCV 90.4 MCH 30.5 MCHC 33.7 RDW 13.5 Plt Count 320 MPV 10.0 Neut # (Auto) 9.8 H Lymph # (Auto) 0.8 L [place] # (Auto) 0.8 Eos # (Auto) 0.1 Baso # (Auto) 0.0 Absolute Nucleated RBC 0.00 Nucleated RBC % 0.0 PT INR Sodium 136 Potassium 3.6 Chloride 103 Carbon Dioxide 26 Anion Gap 7.0 BUN 16 Creatinine 1.0 Estimated GFR (MDRD) 54 L Glucose 102 H Calcium 9.4 Magnesium 1.4 L Total Bilirubin 1.0 AST 14 ALT 11 Alkaline Phosphatase 75 Troponin I High Sens 13.2 Total Protein 7.7 Albumin 4.3 Globulin 3.4 Albumin/Globulin Ratio 1.3 Lipase 20 L Blood Type Antibody Screen 04/06/21 04/06/21 14:15 14:15 WBC RBC Hgb Hct MCV MCH MCHC RDW Plt Count MPV Neut # (Auto) Lymph # (Auto) [place] # (Auto) Eos # (Auto) Baso # (Auto) Absolute Nucleated RBC Nucleated RBC % PT 13.4 H INR 1.2 Sodium Potassium Chloride Carbon Dioxide Anion Gap BUN Creatinine Estimated GFR (MDRD) Glucose Calcium Magnesium Total Bilirubin AST ALT Alkaline Phosphatase Troponin I High Sens Total Protein Albumin Globulin Albumin/Globulin Ratio Lipase Blood Type A POSITIVE Antibody Screen NEGATIVE PD MEDICAL DECISION MAKING - ED course ED course: 80-year-old woman presents with nausea vomiting, orthostasis and epigastric pain. Abdominal exam is very benign. Was resolved after Zofran. Feeling better after IV fluids. No evidence of ACS. Departure - Departure Disposition: 01 Home, Self Care Clinical Impression: Vomiting, Dehydration Condition: Good Record reviewed to determine appropriate education?: Yes Instructions: ED Nausea Vomiting Prescriptions: Ondansetron Odt [Zofran] 4 mg TL Q6H PRN #10 tablet PRN Reason: Nausea / Vomiting Comments: Prescription was sent electronically to [facility]. Call your doctor to arrange a follow-up appointment, make the next available appointment. In the interim, return anytime if worse or if new symptoms develop.
[2021-04-06 14:34] LABS: BASOPHILS % (AUTO) 0.3 %; EOSINOPHILS # (AUTO) 0.1 10^3/uL (0.0-0.7); EOSINOPHILS % (AUTO) 0.8 %; HCT - HEMATOCRIT 36.8 % (37.0-47.0); HGB - HEMOGLOBIN 12.4 g/dL (12.0-16.0); LYMPHOCYTES # (AUTO) 0.8 10^3/uL (1.5-3.5); LYMPHOCYTES % (AUTO) 6.8 %; MEAN CORPUSCULAR HEMOGLOBIN 30.5 pg (27.0-31.0); MEAN CORPUSCULAR HGB CONC 33.7 g/dL (32.0-36.0); MEAN CORPUSCULAR VOLUME 90.4 fL (81.0-99.0); MONOCYTES # (AUTO) 0.8 10^3/uL (0.0-1.0); MONOCYTES % (AUTO) 6.6 %; NEUTROPHILS # (AUTO) 9.8 10^3/uL (1.5-6.6); NEUTROPHILS % (AUTO) 85.2 %; PLT - PLATELET COUNT 320 10^3/uL (130-450); RED BLOOD COUNT 4.07 10^6/uL (4.20-5.40); RED CELL DISTRIBUTION WIDTH 13.5 % (12.0-15.0); WHITE BLOOD COUNT 11.5 x10^3/uL (4.8-10.8)
[2021-04-06 14:45] LABS: INR 1.2 (0.8-1.2); PT - PROTHROMBIN TIME 13.4 secs (9.9-12.6)
[2021-04-06 14:50] LABS: ALBUMIN 4.3 g/dL (3.2-5.5); ALBUMIN/GLOBULIN RATIO 1.3 (1.0-2.2); CALCIUM 9.4 mg/dL (8.5-10.3); MAGNESIUM 1.4 mg/dL (1.7-2.8); POTASSIUM 3.6 mmol/L (3.5-5.0); TOTAL PROTEIN 7.7 g/dL (6.7-8.2)
== END 2021-04-06 17:20 | disposition home or self-care (01) ==
LOC: ED 13:38
DX: R11.2 Nausea with vomiting, unspecified (principal); E86.0 Dehydration; R10.13 Epigastric pain; I95.1 Orthostatic hypotension; I25.10 Atherosclerotic heart disease of native coronary artery without angina pectoris; I45.10 Unspecified right bundle-branch block; I10 Essential (primary) hypertension; Z95.5 Presence of coronary angioplasty implant and graft; Z95.1 Presence of aortocoronary bypass graft; E11.42 Type 2 diabetes mellitus with diabetic polyneuropathy; Z79.4 Long term (current) use of insulin; Z79.02 Long term (current) use of antithrombotics/antiplatelets; Z79.82 Long term (current) use of aspirin
CPT/HCPCS: 36415; 80053; 83690; 83735; 84484; 85025; 85610; 86850; 86900; 86901; 93005; 96361; 96374; 96375; 99284

== ENCOUNTER 2021-05-26 08:00 | Outpatient (CLI) | payer MEDICARE, MEDICAID ==
[2021-05-26 18:22] LABS: BASOPHILS # (AUTO) 0.1 10^3/uL (0.0-0.1); BASOPHILS % (AUTO) 0.5 %; EOSINOPHILS # (AUTO) 0.1 10^3/uL (0.0-0.7); EOSINOPHILS % (AUTO) 1.5 %; HCT - HEMATOCRIT 37.2 % (37.0-47.0); HGB - HEMOGLOBIN 11.9 g/dL (12.0-16.0); LYMPHOCYTES # (AUTO) 1.1 10^3/uL (1.5-3.5); LYMPHOCYTES % (AUTO) 11.8 %; MEAN CORPUSCULAR HEMOGLOBIN 29.7 pg (27.0-31.0); MEAN CORPUSCULAR VOLUME 92.8 fL (81.0-99.0); MEAN PLATELET VOLUME 10.4 fL (7.9-10.8); MONOCYTES # (AUTO) 0.7 10^3/uL (0.0-1.0); MONOCYTES % (AUTO) 7.2 %; NEUTROPHILS # (AUTO) 7.4 10^3/uL (1.5-6.6); NEUTROPHILS % (AUTO) 78.9 %; PLT - PLATELET COUNT 310 10^3/uL (130-450); RED BLOOD COUNT 4.01 10^6/uL (4.20-5.40); RED CELL DISTRIBUTION WIDTH 14.1 % (12.0-15.0); WHITE BLOOD COUNT 9.3 x10^3/uL (4.8-10.8)
[2021-05-26 18:31] LABS: THYROID STIMULATING HORMONE 0.99 uIU/mL (0.34-5.60)
[2021-05-26 18:34] LABS: ALBUMIN 4.1 g/dL (3.2-5.5); ALBUMIN/GLOBULIN RATIO 1.2 (1.0-2.2); ALKALINE PHOSPHATASE 69 IU/L (42-121); ALT ALANINE AMINOTRANSFERASE 13 IU/L (10-60); AST ASPARTATE AMINOTRANSFERASE 15 IU/L (10-42); BILIRUBIN,TOTAL 0.9 mg/dL (0.2-1.0); BUN - BLOOD UREA NITROGEN 20 mg/dL (6-20); CARBON DIOXIDE - CO2 23 mmol/L (21-32); CHLORIDE 102 mmol/L (101-111); CHOL/HDL RATIO 3.3 (<4.4); CHOLESTEROL 112 mg/dL; CREATININE 1.1 mg/dL (0.4-1.0); GFR - MDRD 48 (>89); GLUCOSE 61 mg/dL (70-100); HDL CHOLESTEROL 34 mg/dL; LDL CHOLESTEROL,CALCULATED 53 mg/dL; LDL/HDL RATIO 1.6 (<4.4); POTASSIUM 3.9 mmol/L (3.5-5.0); SODIUM 141 mmol/L (135-145); TOTAL PROTEIN 7.5 g/dL (6.7-8.2); TRIGLYCERIDES 127 mg/dL; VLDL CHOLESTEROL 25 mg/dL
[2021-05-26 19:02] LABS: CREATININE,URINE 461.3 mg/dL; MICROALBUM/CREATININE RATIO,UR 22.5 ug/mg (<30.0); MICROALBUMIN,URINE 10.4 mg/dL (0-300.0)
[2021-05-26 20:13] LABS: ESTIMATED AVERAGE GLUCOSE 151 mg/dL (70-100); HEMOGLOBIN A1c% 6.9 % (4.27-6.07)
== END 2021-05-26 23:59 | disposition home or self-care (01) ==
LOC: LAB.WCP 08:00
PROVIDERS: ATTEND Family Medicine
DX: E11.9 Type 2 diabetes mellitus without complications (principal)
CPT/HCPCS: 36415; 80053; 80061; 82043; 82570; 83036; 83721; 84443; 85025

== ENCOUNTER 2021-07-19 10:38 | Outpatient (CLI) | payer MEDICARE, MEDICAID | END 2021-07-19 10:39 | disposition critical access hospital (66) | LOC: EMS 10:38 | DX: R42 Dizziness and giddiness (principal); R11.0 Nausea | CPT/HCPCS: A0425; A0429 ==

== ENCOUNTER 2021-07-19 10:59 | Emergency (ER) | payer MEDICARE, MEDICAID ==
--- NOTE | 2021-07-19 11:29 | ED Physician Documentation ---
PD HPI SYNCOPE - Stated complaint Stated Complaint: DIZZY - Chief complaint Chief Complaint: Neuro - History obtained from History obtained from: Patient - History of Present Illness Witnessed: Witnessed (felt lightheaded heading into hindu. No syncope per se. Has had this feeling at times the past week. No vertigo. No focal weakness. No recent change in meds.) Timing - onset: How many minutes ago (several) Duration: Minutes Preceding symptoms: Dyspnea (for the past week). No: Headache, Chest pain Associated symptoms: No: Headache, Chest pain, Nausea / vomiting Contributing factors: No: Recent med change, Decreased PO intake (she was concerned about being dehydrated so was drinking extra fluids lately. Also says she adds salt to her diet.) Similar symptoms before: Has not had sx before Recently seen: Not recently seen Review of Systems Constitutional: denies: Fever, Chills Nose: denies: Rhinorrhea / runny nose, Congestion Throat: denies: Sore throat Cardiac: reports: Pedal edema (chronic with some increase this past week.). denies: Chest pain / pressure, Palpitations, Calf pain Respiratory: reports: Dyspnea. denies: Cough, Wheezing GI: denies: Abdominal Pain, Nausea, Vomiting, Diarrhea, Bloody / black stool : denies: Dysuria Musculoskeletal: reports: Extremity swelling Neurologic: reports: Generalized weakness, Near syncope (lightheaded today with near syncope, but some lightheaded at times the past week.). denies: Focal weakness, Numbness PD PAST MEDICAL HISTORY - Past Medical History Cardiovascular: Hypertension, High cholesterol, Coronary artery disease, Atrial fibrillation, Other Respiratory: None Neuro: TIA, Peripheral neuropathy Endocrine/Autoimmune: Type 2 diabetes, HyPERthyroidism GI: GERD, Chronic constipation, Hemorrhoids : Incontinence HEENT: Chronic vision loss Psych: None Musculoskeletal: Osteoarthritis Derm: Other - Past Surgical History Past Surgical History: Yes Ortho: Rotator cuff repair, Spine surgery Cardiovascular: CABG, Coronary stent - Present Medications Home Medications: Ambulatory Orders Medication Instructions Recorded Confirmed Metformin HCl 1,000 mg PO BIDWM 04/21/14 04/06/21 Metoprolol Tartrate 100 mg PO BID 04/21/14 04/06/21 Insulin Glargine [Lantus] 0 unit SUBQ QDBREAKFAST 09/04/14 04/06/21 Aspirin [Aspir 81] 81 mg PO DAILY 09/19/14 04/06/21 Losartan [Cozaar] 100 mg PO DAILY 09/19/14 04/06/21 Pregabalin [Lyrica] 50 mg PO TID 09/19/14 04/06/21 Atorvastatin Calcium [Lipitor] 40 mg PO QPM 12/31/14 04/06/21 Insulin Lispro [Humalog] 0 units SQ TIDWM 12/31/14 04/06/21 Cyanocobalamin (Vitamin B-12) 1,000 mcg PO DAILY 05/09/19 04/06/21 [Vitamin B-12 (100mcg tab)] Echinacea Purpurea,Angustif Xt 760 mg PO DAILY 05/09/19 04/06/21 [Echinacea Extract 125 mg Cap] Clopidogrel [Plavix] 75 mg PO DAILY 04/06/21 04/06/21 Dorifenacin 15 mg DAILY 04/06/21 04/06/21 Ondansetron Odt [Zofran] 4 mg TL Q6H PRN #10 tablet 04/06/21 amLODIPine [Norvasc] 10 mg PO DAILY 04/06/21 04/06/21 Furosemide [Lasix] 20 mg PO DAILY #5 tablet 07/19/21 Magnesium Oxide [Mag Ox] 400 mg PO DAILY #14 tablet 07/19/21 - Allergies Allergies/Adverse Reactions: Allergies Allergy/AdvReac Type Severity Reaction Status Date / Time No Known Drug Allergies Allergy Verified 07/19/21 11:08 - Social History Does the pt smoke?: No Smoking Status: Never smoker Does the pt drink ETOH?: No PD ED PE NORMAL - Vitals Vital signs reviewed: Yes - General General: Alert and oriented X 3, No acute distress, Well developed/nourished - HEENT HEENT: Pharynx benign - Neck Neck: Supple, no meningeal sign, No adenopathy - Cardiac Cardiac: No murmur. No: RRR (irregular but rate controlled 60s.) - Respiratory Respiratory: No: Clear bilaterally (faint crackles at bases. ) - Abdomen Abdomen: Soft, Non tender - Derm Derm: Normal color, Warm and dry - Extremities Extremities: No tenderness to palpate, Normal ROM s pain, No calf tenderness / cord, Other (1+ edema in both lower legs up to mid shins. ) - Neuro Neuro: Alert and oriented X 3, No motor deficit, No sensory deficit, Normal speech Results - Vitals Vitals: Vital Signs - 24 hr 07/19/21 07/19/21 07/19/21 11:09 13:14 14:06 Temperature 36.6 C Heart Rate 79 68 60 Respiratory 17 17 16 Rate Blood Pressure 170/66 H 186/82 H 156/77 H O2 Saturation 95 96 95 Oxygen O2 Source Room air - EKG (time done) 10:59 Rate: Rate (enter#) (69) Rhythm: Atrial fibrillation Intervals: RBBB Ischemia: No: ST elevation c/w ischemia, ST depression - Labs Labs: Laboratory Tests 07/19/21 07/19/21 07/19/21 11:51 11:51 11:51 WBC 12.2 H RBC 3.92 L Hgb 11.5 L Hct 36.1 L MCV 92.1 MCH 29.3 MCHC 31.9 L RDW 14.6 Plt Count 297 MPV 10.0 Neut # (Auto) 10.4 H Lymph # (Auto) 0.8 L [place] # (Auto) 0.8 Eos # (Auto) 0.2 Baso # (Auto) 0.0 Absolute Nucleated RBC 0.00 Nucleated RBC % 0.0 Sodium 139 Potassium 4.4 Chloride 105 Carbon Dioxide 23 Anion Gap 11.0 BUN 22 H Creatinine 1.0 Estimated GFR (MDRD) 54 L Glucose 153 H Calcium 9.3 Magnesium 1.4 L Total Bilirubin 1.1 H AST 30 ALT 30 Alkaline Phosphatase 85 Troponin I High Sens 8.6 B-Natriuretic Peptide Total Protein 7.4 Albumin 4.0 Globulin 3.4 Albumin/Globulin Ratio 1.2 Lipase 19 L 07/19/21 11:51 WBC RBC Hgb Hct MCV MCH MCHC RDW Plt Count MPV Neut # (Auto) Lymph # (Auto) [place] # (Auto) Eos # (Auto) Baso # (Auto) Absolute Nucleated RBC Nucleated RBC % Sodium Potassium Chloride Carbon Dioxide Anion Gap BUN Creatinine Estimated GFR (MDRD) Glucose Calcium Magnesium Total Bilirubin AST ALT Alkaline Phosphatase Troponin I High Sens B-Natriuretic Peptide 590 H Total Protein Albumin Globulin Albumin/Globulin Ratio Lipase - Rads (name of study) chest xray Radiology: Prelim report reviewed (moderate vascular congestion. ), See rad report PD MEDICAL DECISION MAKING - ED course Complexity details: considered differential (rate controlled atrial fib with history of afib. last ECg was NSR in March. Does have some edema and CXR vascular congestion, presume some CHF. ), d/w patient Departure - Departure Disposition: 01 Home, Self Care Clinical Impression: Episodic lightheadedness, Paroxysmal atrial fibrillation, Hypomagnesemia Dyspnea Qualifiers: Dyspnea type: dyspnea on exertion Qualified Code(s): R06.00 - Dyspnea, unspecified CHF (congestive heart failure) Qualifiers: Heart failure type: unspecified Heart failure chronicity: unspecified Qualified Code(s): I50.9 - Heart failure, unspecified Condition: Stable Record reviewed to determine appropriate education?: Yes Instructions: ED Afib, ED CHF General Follow-Up: Elizabeth Melvin DO [Primary Care Provider] - Prescriptions: Furosemide [Lasix] 20 mg PO DAILY #5 tablet Magnesium Oxide [Mag Ox] 400 mg PO DAILY #14 tablet Comments: You do not seem dehydrated. It does appear your to be some increased fluid congestion within your lungs which does relate more to salt intake. Stay normally hydrated but low-salt diet. I would suggest adding a mild diuretic (water pill) daily for the next 5 days. Your magnesium level was low as well and I wrote for oral supplement for the next 2 weeks. Continue your other usual medications. Your heart rhythm is atrial fibrillation currently, and that is commonly a "come and go" type of rhythm problem. It sounds like you have had this episodically in the past. The rate is controlled so your current medications are good and your blood pressure is good here today as well. I think your lightheadedness most likely relates to some fluid congestion in the lungs and the low magnesium level and not from the atrial fibrillation per se. See how much better you feel over the next few days though and follow-up with your primary care regarding other treatments if not improved. Discharge Date/Time: 07/19/21 14:26
--- NOTE | 2021-07-19 11:55 | XRAY Report ---
PROCEDURE: Chest 1 View X-Ray INDICATIONS: Chest Pain TECHNIQUE: One view of the chest was acquired. COMPARISON: 12/02/2020 FINDINGS: Surgical changes and devices: Post CABG changes are seen. Postoperative change of the right shoulde r can be seen. Lungs and pleura: No pleural effusions or pneumothorax. Mild generalized interstitial prominence ca n be seen. Mediastinum: Mediastinal contours appear normal. Heart size is moderately enlarged. Bones and chest wall: No suspicious bony lesions. Age-appropriate degenerative changes are seen. O verlying soft tissues appear unremarkable. IMPRESSION: Cardiomegaly and pulmonary interstitial prominence can be seen, which are new compared to the prior c hest radiograph. Please correlate with patient examination, history, and laboratory values for underl hilary congestive heart failure. Postoperative and degenerative changes are seen. Reviewed by: David Montanez MD on 07/19/2021 10:53 AM [facility] Approved by: David Montanez MD on 07/19/2021 10:53 AM [facility] Station ID: [id number]
[2021-07-19 12:02] LABS: BASOPHILS % (AUTO) 0.3 %; EOSINOPHILS # (AUTO) 0.2 10^3/uL (0.0-0.7); EOSINOPHILS % (AUTO) 1.4 %; HCT - HEMATOCRIT 36.1 % (37.0-47.0); HGB - HEMOGLOBIN 11.5 g/dL (12.0-16.0); LYMPHOCYTES # (AUTO) 0.8 10^3/uL (1.5-3.5); LYMPHOCYTES % (AUTO) 6.9 %; MEAN CORPUSCULAR HEMOGLOBIN 29.3 pg (27.0-31.0); MEAN CORPUSCULAR HGB CONC 31.9 g/dL (32.0-36.0); MEAN CORPUSCULAR VOLUME 92.1 fL (81.0-99.0); MONOCYTES # (AUTO) 0.8 10^3/uL (0.0-1.0); MONOCYTES % (AUTO) 6.1 %; NEUTROPHILS # (AUTO) 10.4 10^3/uL (1.5-6.6); PLT - PLATELET COUNT 297 10^3/uL (130-450); RED BLOOD COUNT 3.92 10^6/uL (4.20-5.40); RED CELL DISTRIBUTION WIDTH 14.6 % (12.0-15.0); WHITE BLOOD COUNT 12.2 x10^3/uL (4.8-10.8)
[2021-07-19 12:18] LABS: ALBUMIN/GLOBULIN RATIO 1.2 (1.0-2.2); BILIRUBIN,TOTAL 1.1 mg/dL (0.2-1.0); CALCIUM 9.3 mg/dL (8.5-10.3); MAGNESIUM 1.4 mg/dL (1.7-2.8); POTASSIUM 4.4 mmol/L (3.5-5.0); TOTAL PROTEIN 7.4 g/dL (6.7-8.2)
[2021-07-19] MEDS ORDERED: MAGNESIUM SULFATE 2 GRAM 2 GM/50 ML BAG IV ONE (12:40)
[2021-07-19] MEDS ORDERED: FUROSEMIDE 20 MG/2 ML VIAL IVP STA (12:40)
[2021-07-19 14:06] VITALS: BP 156/77
== END 2021-07-19 14:26 | disposition home or self-care (01) ==
LOC: EDUNIT# → ED 10:59
DX: I11.0 Hypertensive heart disease with heart failure (principal); I50.9 Heart failure, unspecified; I48.0 Paroxysmal atrial fibrillation; I45.10 Unspecified right bundle-branch block; E83.42 Hypomagnesemia; R42 Dizziness and giddiness; E11.42 Type 2 diabetes mellitus with diabetic polyneuropathy; Z79.4 Long term (current) use of insulin; Z79.84 Long term (current) use of oral hypoglycemic drugs; Z79.02 Long term (current) use of antithrombotics/antiplatelets; Z79.82 Long term (current) use of aspirin
CPT/HCPCS: 36415; 80053; 83690; 83735; 83880; 84484; 85025; 93005; 96365; 96375; 99284

== ENCOUNTER 2021-08-01 16:21 | Outpatient (CLI) | payer MEDICARE, MEDICAID | END 2021-08-01 16:22 | disposition EMS.NT | LOC: EMS 16:21 | DX: R06.09 Other forms of dyspnea (principal) ==

== ENCOUNTER 2021-08-10 13:21 | Outpatient (CLI) | payer MEDICARE, MEDICAID ==
[2021-08-10 17:40] LABS: HCT - HEMATOCRIT 34.4 % (37.0-47.0); HGB - HEMOGLOBIN 10.7 g/dL (12.0-16.0); MEAN CORPUSCULAR HEMOGLOBIN 29.2 pg (27.0-31.0); MEAN CORPUSCULAR HGB CONC 31.1 g/dL (32.0-36.0); MEAN CORPUSCULAR VOLUME 93.7 fL (81.0-99.0); RED BLOOD COUNT 3.67 10^6/uL (4.20-5.40); RED CELL DISTRIBUTION WIDTH 15.4 % (12.0-15.0); WHITE BLOOD COUNT 9.8 x10^3/uL (4.8-10.8)
[2021-08-10 18:31] LABS: CALCIUM 9.1 mg/dL (8.5-10.3); CREATININE 1.3 mg/dL (0.4-1.0); MAGNESIUM 1.7 mg/dL (1.7-2.8)
== END 2021-08-10 23:59 | disposition home or self-care (01) ==
LOC: LAB.WCP 13:21
PROVIDERS: ATTEND Family Medicine
DX: R06.09 Other forms of dyspnea (principal); I48.91 Unspecified atrial fibrillation; Z20.822 Contact with and (suspected) exposure to COVID-19
CPT/HCPCS: 36415; 80048; 83735; 83880; 85027; U0004

== ENCOUNTER 2021-08-13 07:48 | Outpatient (CLI) | payer MEDICARE, MEDICAID | END 2021-08-13 07:49 | disposition home or self-care (01) | LOC: DI 07:48 | PROVIDERS: ATTEND Family Medicine | DX: R06.09 Other forms of dyspnea (principal); I48.91 Unspecified atrial fibrillation; I25.10 Atherosclerotic heart disease of native coronary artery without angina pectoris; I11.9 Hypertensive heart disease without heart failure | CPT/HCPCS: 93306 ==

== ENCOUNTER 2021-09-25 10:09 | Outpatient (CLI) | payer MEDICARE, MEDICAID ==
[2021-09-25 12:26] LABS: BASOPHILS # (AUTO) 0.1 10^3/uL (0.0-0.1); BASOPHILS % (AUTO) 0.6 %; EOSINOPHILS # (AUTO) 0.3 10^3/uL (0.0-0.7); EOSINOPHILS % (AUTO) 3.3 %; HCT - HEMATOCRIT 35.1 % (37.0-47.0); HGB - HEMOGLOBIN 11.2 g/dL (12.0-16.0); LYMPHOCYTES # (AUTO) 1.1 10^3/uL (1.5-3.5); LYMPHOCYTES % (AUTO) 12.2 %; MEAN CORPUSCULAR HEMOGLOBIN 29.6 pg (27.0-31.0); MEAN CORPUSCULAR HGB CONC 31.9 g/dL (32.0-36.0); MEAN CORPUSCULAR VOLUME 92.9 fL (81.0-99.0); MEAN PLATELET VOLUME 10.1 fL (7.9-10.8); MONOCYTES # (AUTO) 0.8 10^3/uL (0.0-1.0); MONOCYTES % (AUTO) 9.8 %; NEUTROPHILS # (AUTO) 6.3 10^3/uL (1.5-6.6); NEUTROPHILS % (AUTO) 73.8 %; PLT - PLATELET COUNT 308 10^3/uL (130-450); RED BLOOD COUNT 3.78 10^6/uL (4.20-5.40); RED CELL DISTRIBUTION WIDTH 15.9 % (12.0-15.0); WHITE BLOOD COUNT 8.6 x10^3/uL (4.8-10.8)
[2021-09-25 12:43] LABS: ALBUMIN 3.8 g/dL (3.2-5.5); ALBUMIN/GLOBULIN RATIO 1.2 (1.0-2.2); ALKALINE PHOSPHATASE 70 IU/L (42-121); ALT ALANINE AMINOTRANSFERASE 25 IU/L (10-60); AST ASPARTATE AMINOTRANSFERASE 19 IU/L (10-42); BILIRUBIN,TOTAL 1.3 mg/dL (0.2-1.0); BUN - BLOOD UREA NITROGEN 20 mg/dL (6-20); CALCIUM 9.2 mg/dL (8.5-10.3); CARBON DIOXIDE - CO2 27 mmol/L (21-32); CHLORIDE 105 mmol/L (101-111); CHOL/HDL RATIO 2.9 (<4.4); CHOLESTEROL 92 mg/dL; GFR - MDRD 54 (>89); GLUCOSE 64 mg/dL (70-100); HDL CHOLESTEROL 32 mg/dL; LDL CHOLESTEROL,CALCULATED 42 mg/dL; LDL/HDL RATIO 1.3 (<4.4); POTASSIUM 3.4 mmol/L (3.5-5.0); SODIUM 144 mmol/L (135-145); TRIGLYCERIDES 88 mg/dL; VLDL CHOLESTEROL 18 mg/dL
[2021-09-25 13:06] LABS: CREATININE,URINE 142.2 mg/dL; MICROALBUM/CREATININE RATIO,UR 80.2 ug/mg (<30.0); MICROALBUMIN,URINE 11.4 mg/dL (0-300.0)
[2021-09-25 15:29] LABS: ESTIMATED AVERAGE GLUCOSE 143 mg/dL (70-100); HEMOGLOBIN A1c% 6.6 % (4.27-6.07)
== END 2021-09-25 10:10 | disposition home or self-care (01) ==
LOC: LAB.N 10:09
PROVIDERS: ATTEND Nurse Practitioner
DX: E11.39 Type 2 diabetes mellitus with other diabetic ophthalmic complication (principal); I25.10 Atherosclerotic heart disease of native coronary artery without angina pectoris; I48.91 Unspecified atrial fibrillation
CPT/HCPCS: 36415; 80048; 80053; 80061; 82043; 82570; 83036; 83721; 85025

== ENCOUNTER 2021-09-25 10:35 | Outpatient (CLI) | payer MEDICARE, MEDICAID ==
--- NOTE | 2021-09-25 13:29 | XRAY Report ---
PROCEDURE: Chest 2 View X-Ray INDICATIONS: FLUID IN LUNGS TECHNIQUE: 2 view(s) of the chest. COMPARISON: None. FINDINGS: Surgical changes and devices: Post median sternotomy and CABG. Lungs and pleura: No significant pleural effusions. No pneumothorax. Lungs appear clear. Mediastinum: Mediastinal contours are normal. Heart size is enlarged. Bones and chest wall: No suspicious bony abnormalities. Soft tissues appear unremarkable. IMPRESSION: No acute cardiopulmonary abnormality. Cardiomegaly. Reviewed by: Jose Jane MD on 09/25/2021 1:28 PM [facility] Approved by: Jose Jane MD on 09/25/2021 1:28 PM [facility] Station ID: [id number]
== END 2021-09-25 10:36 | disposition home or self-care (01) ==
LOC: DI.N 10:35
PROVIDERS: ATTEND Nurse Practitioner
DX: Z20.822 Contact with and (suspected) exposure to COVID-19 (principal); I51.7 Cardiomegaly; E11.39 Type 2 diabetes mellitus with other diabetic ophthalmic complication; I25.10 Atherosclerotic heart disease of native coronary artery without angina pectoris; I48.91 Unspecified atrial fibrillation
CPT/HCPCS: 36415; 80048; 80053; 80061; 82043; 82570; 83036; 83721; 85025

== ENCOUNTER 2021-09-25 10:41 | Outpatient (CLI) | payer MEDICARE, MEDICAID | END 2021-09-25 10:42 | disposition home or self-care (01) | LOC: LAB.N 10:41 | PROVIDERS: ATTEND Nurse Practitioner | DX: E11.39 Type 2 diabetes mellitus with other diabetic ophthalmic complication (principal); I48.91 Unspecified atrial fibrillation ==

== ENCOUNTER 2021-12-15 11:41 | Outpatient (CLI) | payer MEDICARE, MEDICAID ==
--- NOTE | 2021-12-16 10:02 | XRAY Report ---
PROCEDURE: Shoulder 3 View RT INDICATIONS: RIGHT SHOULDER PX TECHNIQUE: 3 views of the shoulder were acquired. COMPARISON: X-ray right shoulder, 3 view, 04/21/2014. FINDINGS: Bones: Old fracture of the humeral neck with deformity. There are postsurgical changes related to ro tator cuff tendon repair with surgical anchors in the humeral head. No acute fractures or dislocation s. No suspicious bony lesions. Moderate acromioclavicular and glenohumeral joint degeneration. Visu alized ribs appear intact. Sternotomy. Soft tissues: No suspicious soft tissue calcifications. IMPRESSION: 1. Old humeral neck fracture/deformity. 2. Postsurgical changes related to rotator cuff tendon repair. 3. Moderate degenerative joint disease. Reviewed by: Debbie Olmos MD on 12/16/2021 10:00 AM [facility] Approved by: Debbie Olmos MD on 12/16/2021 10:00 AM [facility] Station ID: [id number]
== END 2021-12-15 23:59 | disposition home or self-care (01) ==
LOC: DI.N 11:41
PROVIDERS: ATTEND Family Medicine
DX: M19.011 Primary osteoarthritis, right shoulder (principal); Z87.81 Personal history of (healed) traumatic fracture

== ENCOUNTER 2021-12-20 13:40 | Outpatient (CLI) | payer MEDICARE, MEDICAID | END 2021-12-20 13:41 | disposition critical access hospital (66) | LOC: EMS 13:40 | DX: R06.09 Other forms of dyspnea (principal); R06.01 Orthopnea; I10 Essential (primary) hypertension | CPT/HCPCS: A0425; A0429 ==

== ENCOUNTER 2021-12-20 13:59 | Inpatient (IN) | payer MEDICARE, MEDICAID ==
[2021-12-20] MEDS ORDERED: FUROSEMIDE 20 MG/2 ML VIAL IVP STA (14:12)
[2021-12-20] MEDS ORDERED: NITROGLYCERIN 2% PASTE TOP STA (14:12)
--- NOTE | 2021-12-20 14:17 | ED Physician Documentation ---
PD HPI DYSPNEA - Stated complaint Stated Complaint: SOA - Chief complaint Chief Complaint: Resp - History obtained from History obtained from: Patient, EMS - Additional information Additional information: The patient is brought to the emergency department by EMS for chief complaint of dyspnea. She has been feeling increasingly worse over the last couple of months with episodes of dyspnea and lower extremity edema which seemed to improve in between. However, for the last several days, she has noticed worsening edema and also dyspnea and it does not seem to be resolving. The patient states that it is hard for her to get around her house now because she gets so short of breath. She denies chest pain. She has a history of coronary artery disease and had a quintuple bypass about 10 years ago. She states that within the past year, she went and saw her script writer at [facility] in [place] and they did an angiogram which time they found one vessel that was occluded enough to place a stent, but told her the rest of her vessels looked good. Patient denies any fevers, chills, or cough. She has been fully vaccinated for COVID but has not received a booster. She does note that her caregiver had to leave early last week because the caregiver son was found to be positive for Covid. Patient states she also has a Covid exposure recently at her doctor's office. Patient states she feels mildly dyspneic sitting in the bed, but otherwise, its mainly when she is up and about that she notices it the most, or when she lays down in bed. Patient does not use supplemental oxygen at home. However, EMS state that they have had to keep her on 4 L in route to keep her oxygen saturation up after finding her to be in the mid-80s at home. No other complaints at this time. Review of Systems Ten Systems: 10 systems reviewed and negative Constitutional: reports: Reviewed and negative. denies: Fever Eyes: reports: Reviewed and negative Ears: reports: Reviewed and negative Nose: reports: Reviewed and negative Throat: reports: Reviewed and negative Cardiac: reports: Reviewed and negative. denies: Chest pain / pressure Respiratory: reports: Dyspnea. denies: Cough GI: reports: Reviewed and negative : reports: Reviewed and negative Skin: reports: Reviewed and negative Musculoskeletal: reports: Extremity swelling Neurologic: reports: Reviewed and negative Psychiatric: reports: Reviewed and negative Endocrine: reports: Reviewed and negative Immunocompromised: reports: Reviewed and negative PD PAST MEDICAL HISTORY - Past Medical History Cardiovascular: Hypertension, High cholesterol, Coronary artery disease, Atrial fibrillation, Other Respiratory: None Neuro: TIA, Peripheral neuropathy Endocrine/Autoimmune: Type 2 diabetes, HyPERthyroidism GI: GERD, Chronic constipation, Hemorrhoids : Incontinence HEENT: Chronic vision loss Psych: None Musculoskeletal: Osteoarthritis Derm: Other - Past Surgical History Past Surgical History: Yes Ortho: Rotator cuff repair, Spine surgery Cardiovascular: CABG, Coronary stent - Present Medications Home Medications: Ambulatory Orders Medication Instructions Recorded Confirmed Metformin HCl 1,000 mg PO BIDWM 04/21/14 04/06/21 Metoprolol Tartrate 100 mg PO BID 04/21/14 04/06/21 Insulin Glargine [Lantus] 0 unit SUBQ QDBREAKFAST 09/04/14 04/06/21 Aspirin [Aspir 81] 81 mg PO DAILY 09/19/14 04/06/21 Losartan [Cozaar] 100 mg PO DAILY 09/19/14 04/06/21 Pregabalin [Lyrica] 50 mg PO TID 09/19/14 04/06/21 Atorvastatin Calcium [Lipitor] 40 mg PO QPM 12/31/14 04/06/21 Insulin Lispro [Humalog] 0 units SQ TIDWM 12/31/14 04/06/21 Cyanocobalamin (Vitamin B-12) 1,000 mcg PO DAILY 05/09/19 04/06/21 [Vitamin B-12 (100mcg tab)] Echinacea Purpurea,Angustif Xt 760 mg PO DAILY 05/09/19 04/06/21 [Echinacea Extract 125 mg Cap] Clopidogrel [Plavix] 75 mg PO DAILY 04/06/21 04/06/21 Dorifenacin 15 mg DAILY 04/06/21 04/06/21 Ondansetron Odt [Zofran] 4 mg TL Q6H PRN #10 tablet 04/06/21 amLODIPine [Norvasc] 10 mg PO DAILY 04/06/21 04/06/21 Furosemide [Lasix] 20 mg PO DAILY #5 tablet 07/19/21 Magnesium Oxide [Mag Ox] 400 mg PO DAILY #14 tablet 07/19/21 - Allergies Allergies/Adverse Reactions: Allergies Allergy/AdvReac Type Severity Reaction Status Date / Time No Known Drug Allergies Allergy Verified 12/20/21 14:12 - Social History Does the pt smoke?: No Smoking Status: Never smoker Does the pt drink ETOH?: No PD ED PE NORMAL - Vitals Vital signs reviewed: Yes - General General: Alert and oriented X 3, No acute distress, Well developed/nourished - HEENT HEENT: Atraumatic, PERRL, EOMI, Moist mucous membranes - Neck Neck: Supple, no meningeal sign - Cardiac Cardiac: RRR, No murmur, Strong equal pulses - Respiratory Respiratory: Other (Mild bilateral rales; Patient has slightly labored respirations, but is able to speak in full sentences without difficulty.) - Abdomen Abdomen: Soft, Non tender, Non distended - Derm Derm: Warm and dry - Extremities Extremities: No deformity - Neuro Neuro: Alert and oriented X 3 - Psych Psych: Normal mood, Normal affect Results - Vitals Vitals: Vital Signs - 24 hr 12/20/21 14:09 Temperature 36.6 C Heart Rate 83 Respiratory 22 Rate Blood Pressure 160/104 H O2 Saturation 96 Oxygen O2 Source Nasal cannula Oxygen Flow Rate 4 - Labs Labs: Laboratory Tests 12/20/21 12/20/21 12/20/21 14:23 14:23 14:23 WBC 10.8 RBC 4.41 Hgb 12.5 Hct 39.6 MCV 89.8 MCH 28.3 MCHC 31.6 L RDW 16.5 H Plt Count 329 MPV 9.5 Neut # (Auto) 9.4 H Lymph # (Auto) 0.6 L [place] # (Auto) 0.7 Eos # (Auto) 0.1 Baso # (Auto) 0.0 Absolute Nucleated RBC 0.00 Nucleated RBC % 0.0 PT 14.0 H INR 1.3 H Sodium 139 Potassium 4.0 Chloride 103 Carbon Dioxide 25 Anion Gap 11.0 BUN 18 Creatinine 0.8 Estimated GFR (MDRD) 69 L Glucose 132 H Calcium 9.4 Total Bilirubin 1.4 H AST 17 ALT 17 Alkaline Phosphatase 76 Troponin I High Sens B-Natriuretic Peptide Total Protein 7.5 Albumin 3.8 Globulin 3.7 Albumin/Globulin Ratio 1.0 Lipase 29 12/20/21 12/20/21 14:23 14:23 WBC RBC Hgb Hct MCV MCH MCHC RDW Plt Count MPV Neut # (Auto) Lymph # (Auto) [place] # (Auto) Eos # (Auto) Baso # (Auto) Absolute Nucleated RBC Nucleated RBC % PT INR Sodium Potassium Chloride Carbon Dioxide Anion Gap BUN Creatinine Estimated GFR (MDRD) Glucose Calcium Total Bilirubin AST ALT Alkaline Phosphatase Troponin I High Sens 10.7 B-Natriuretic Peptide 1504 H Total Protein Albumin Globulin Albumin/Globulin Ratio Lipase PD MEDICAL DECISION MAKING - ED course Complexity details: reviewed results, re-evaluated patient, considered differential, d/w patient ED course: The patient was worked up with labs, EKG, and chest x-ray. She was given an inch of nitroglycerin paste and an IV dose of Lasix 20 mg. The patient did have good urine output after this, though she was initially wearing a depends and we did not capture the initial output. However, patient reported having to urinate repeatedly. Nursing staff did place a pure wick at this point. Laboratory studies showed a troponin of 10 and a BNP of 1500. White blood cell count And H&H were normal. GFR was 69. The patient was still requiring 3 L of oxygen per nasal cannula to maintain an oxygen saturation of 93%, and I felt she should be admitted to the hospital. I spoke with Dr. Vazquez, who agreed to admit the patient to her service. Departure - Departure Disposition: ED Place in Observation Clinical Impression: Acute exacerbation of CHF (congestive heart failure) Qualifiers: Heart failure type: diastolic Qualified Code(s): I50.33 - Acute on chronic diastolic (congestive) heart failure Condition: Serious Discharge Date/Time: 12/20/21 17:12
[2021-12-20 14:28] LABS: BASOPHILS % (AUTO) 0.4 %; EOSINOPHILS # (AUTO) 0.1 10^3/uL (0.0-0.7); EOSINOPHILS % (AUTO) 0.6 %; HCT - HEMATOCRIT 39.6 % (37.0-47.0); HGB - HEMOGLOBIN 12.5 g/dL (12.0-16.0); LYMPHOCYTES # (AUTO) 0.6 10^3/uL (1.5-3.5); LYMPHOCYTES % (AUTO) 5.6 %; MEAN CORPUSCULAR HEMOGLOBIN 28.3 pg (27.0-31.0); MEAN CORPUSCULAR HGB CONC 31.6 g/dL (32.0-36.0); MEAN CORPUSCULAR VOLUME 89.8 fL (81.0-99.0); MEAN PLATELET VOLUME 9.5 fL (7.9-10.8); MONOCYTES # (AUTO) 0.7 10^3/uL (0.0-1.0); MONOCYTES % (AUTO) 6.4 %; NEUTROPHILS # (AUTO) 9.4 10^3/uL (1.5-6.6); NEUTROPHILS % (AUTO) 86.8 %; PLT - PLATELET COUNT 329 10^3/uL (130-450); RED BLOOD COUNT 4.41 10^6/uL (4.20-5.40); RED CELL DISTRIBUTION WIDTH 16.5 % (12.0-15.0); WHITE BLOOD COUNT 10.8 x10^3/uL (4.8-10.8)
[2021-12-20 14:33] LABS: INR 1.3 (0.8-1.2)
--- NOTE | 2021-12-20 14:44 | XRAY Report ---
PROCEDURE: Chest 1 View X-Ray INDICATIONS: Chest Pain TECHNIQUE: One view of the chest was acquired. COMPARISON: 09/25/2021, 07/19/2021, 12/02/2020 FINDINGS: Surgical changes and devices: Post CABG changes are seen. Right shoulder postoperative change can be seen. Lungs and pleura: Mild interstitial prominence can be seen. Blunting of the costophrenic angles can be seen. No pneumothorax is seen. Mediastinum: Mediastinal contours appear normal. Heart size is moderately enlarged. Bones and chest wall: No suspicious bony lesions. Age-appropriate degenerative changes are seen. O verlying soft tissues appear unremarkable. IMPRESSION: CHF is suspected, with cardiomegaly, interstitial prominence, and small bilateral pleural effusions. Postoperative and degenerative changes are seen. Reviewed by: David Montanez MD on 12/20/2021 1:43 PM [facility] Approved by: David Montanez MD on 12/20/2021 1:43 PM [facility] Station ID: [id number]
[2021-12-20 14:58] LABS: ALBUMIN 3.8 g/dL (3.2-5.5); BILIRUBIN,TOTAL 1.4 mg/dL (0.2-1.0); CALCIUM 9.4 mg/dL (8.5-10.3); CREATININE 0.8 mg/dL (0.4-1.0); TOTAL PROTEIN 7.5 g/dL (6.7-8.2)
[2021-12-20] MEDS ORDERED: oxyCODONE 5 MG TABLET PO PRN (16:05)
[2021-12-20] MEDS ORDERED: ACETAMINOPHEN 325 MG TABLET PO PRN (16:05)
--- NOTE | 2021-12-20 16:17 | HISTORY & PHYSICAL EXAMINATION ---
Chief Complaint - Chief Complaint Chief Complaint: short of breath History of Present Illness - Admitted From Admitted From:: home - History Obtained [facility] History obtained from: Dr. Lopez Exam Limitations: none - History of Present Illness HPI Comment/Other: This jered lady has a history of coronary artery disease. Her first bypass surgery was approximately 2009, and then she underwent an angiogram for nonspecific shortness of breath in 2020 and underwent a stent then. She did have an echocardiogram in 2011 associated with a TIA and left facial droop and left body weakness. The echocardiogram in November 2011 had normal LV chamber size and ejection fraction 60 to 65%. Grade 1 diastolic dysfunction compatible with hypertensive heart disease. Aortic sclerosis without aortic stenosis.She has memory loss so there is some vagueness to her history. She said that she has been short of breath for quite some time. When I asked her to try and pin that down to before the New 's, before or before Thanksgiving she thinks it somewhere in the winter she started getting more short of breath than her usual chronic shortness of breath. She had increasing leg edema. In reviewing the medical record, she was seen by an RESTAURANT HOSTESS September 24, 2021 where she was felt to be having more diastolic dysfunction and was given Lasix 20 mg a day. There are some referrals and authorizations made after that for diabetic education, refills of medications, and then she was seen in the walk-in clinic December 15, 2021 for shoulder pain. There was no mention of her diastolic heart failure and how she was doing with the new Lasix. She states that the Lasix really did not help. She feels like she is getting worse. In the last few days she cannot even walk across her living room. Edema has been a little bit worse. She always has chronic palpitations but does not have chest pain, worsening palpitations. She denies orthopnea. There is no fever, chills, phlegm production. She has a chronic daily cough that is unchanged. Today she was so winded that she called EMS. When EMS picked her up she was 87 to 88% on room air and required 4 L. She was given 20 Lasix in route to the ER. Blood pressure was 160/104.In the emergency room she got another 20 mg of Lasix. And had 1 inch of nitro paste placed.In the emergency room they were able to reduce her oxygen requirement to 3 L. She is now saturating 93 to 94%. She has easy dyspnea with any movement just to sitting her up or transferring [facility]. Her chest x-ray shows congestive heart failure. Her BNP is 1504. Troponin 10.7. BUN and creatinine are stable. CBC is stable. INR is 1.3. There is no Covid testing done. Emergency room provider is asking us to place this patient in observation for acute on chronic heart failure. Most likely diastolic. History - Past Medical History Cardiovascular: reports: Congestive heart failure (diastolic heart failure), Hypertension, High cholesterol, Coronary artery disease (ACB x 5 2009, EKG w Old IWMI, HUMBERTO SVG RCA for ACS 12/09/20), Peripheral Vascular Disease (30% left carotid stenosis November 2011, HAYDE w noncompressible vessels from calcification), Atrial fibrillation, Murmur, Other Respiratory: reports: Sleep apnea, CPAP use Neuro: reports: Dementia, CVA (Left body weakness, right pontine infarct November 2011. ), Peripheral neuropathy, Other (carpal tunnel) Endocrine/Autoimmune: reports: Type 2 diabetes (w PN, and retinopathy), HyPOthyroidism (after goiter removal 1987) GI: reports: GERD, GI bleed, Chronic constipation, Hemorrhoids : reports: Incontinence, Chronic bladder infection, Kidney stones HEENT: reports: Chronic vision loss Psych: reports: Depression, Anxiety (w hoarding disorder) Musculoskeletal: reports: Osteoarthritis, Gout, Chronic back pain (w thoracic back surgery 2005) Derm: reports: Other (Left foot abcess/cellultiis 09/2018) MRSA Hx?: No Other Past Medical History: measles, scarlet fever. - Past Surgical History Ortho: reports: Rotator cuff repair, Spine surgery /PUBLIC HEALTH DIRECTOR: reports: Dilation and currettage Cardiovascular: reports: CABG, Coronary stent HEENT: reports: Tonsil/Adenoidectomy, Other (vitrectomy w membrane peeling intravitreal Triesence) - Family & Social History Family History Comment/Other: Mother had breast cancer, rheumatic fever and with complications of coronary artery disease age 89. Also had diabetes. Dad had colon cancer. of age 75. Sister healthy but w migraines, hx of ?female cancer, hx of rheumatic fever. Brother age 15 of rheumatic fever. She has had several miscarriages. Son Abdelrahman in 2008 of a heart attack. Son at age 36 from a cardiovascular event Living arrangement: At home Living Situation: Alone Social History Notes: twice, who moved from [place] in 2011. Moved in with her sister. After well, she went to her own apartment with senior subsidized housing in [place]. She has a caregiver that comes about every day. Usually Tuesday through Tuesday. Lately things have been a little sketchy because the caregivers family has been sick with Covid so she does not have as many hours as she is used to.She never smoked, never had a history of alcohol abuse. - Substance History Use: Uses substance without health or social issues: NONE Abuse: Recurrent use of substance despite neg consequences: NONE Dependence: Experiences withdrawal or developed tolerances: NONE - POLST Patient has POLST: Yes POLST Status: DNR (directive on the fridge door) Meds/Allgy - Home Medications Home Medications: Ambulatory Orders Medication Instructions Recorded Confirmed Metformin HCl 1,000 mg PO BIDWM 04/21/14 04/06/21 Metoprolol Tartrate 100 mg PO BID 04/21/14 04/06/21 Insulin Glargine [Lantus] 0 unit SUBQ QDBREAKFAST 09/04/14 04/06/21 Aspirin [Aspir 81] 81 mg PO DAILY 09/19/14 04/06/21 Losartan [Cozaar] 100 mg PO DAILY 09/19/14 04/06/21 Pregabalin [Lyrica] 50 mg PO TID 09/19/14 04/06/21 Atorvastatin Calcium [Lipitor] 40 mg PO QPM 12/31/14 04/06/21 Insulin Lispro [Humalog] 0 units SQ TIDWM 12/31/14 04/06/21 Cyanocobalamin (Vitamin B-12) 1,000 mcg PO DAILY 05/09/19 04/06/21 [Vitamin B-12 (100mcg tab)] Echinacea Purpurea,Angustif Xt 760 mg PO DAILY 05/09/19 04/06/21 [Echinacea Extract 125 mg Cap] Clopidogrel [Plavix] 75 mg PO DAILY 04/06/21 04/06/21 Dorifenacin 15 mg DAILY 04/06/21 04/06/21 Ondansetron Odt [Zofran] 4 mg TL Q6H PRN #10 tablet 04/06/21 amLODIPine [Norvasc] 10 mg PO DAILY 04/06/21 04/06/21 Furosemide [Lasix] 20 mg PO DAILY #5 tablet 07/19/21 Magnesium Oxide [Mag Ox] 400 mg PO DAILY #14 tablet 07/19/21 - Allergies Allergies/Adverse Reactions: Allergies Allergy/AdvReac Type Severity Reaction Status Date / Time No Known Drug Allergies Allergy Verified 12/20/21 14:12 Review of Systems - Constitutional Constitutional: reports: Fatigue (for years), Malaise - Eyes Eyes: reports: Blurred vision, Vision loss. denies: Pain, Irritation - Ears, Nose & Throat Ears, Nose & Throat: reports: Hearing loss. denies: Nosebleeds, Postnasal drainage, Sore throat, Hoarseness - Cardiovascular Cariovascular: reports: Irregular heart rate, Palpitations, Chest pain, Edema (mild and chronic), Exertional dyspnea - Respiratory Respiratory: reports: Cough, Snoring, SOB with exertion, Apnea. denies: Sputum production, Wheezing, Orthopnea, SOB at rest - Gastrointestinal Gastrointestinal: reports: Abdominal distention, Nausea, Reflux/heartburn, Blo ating. denies: Abdominal pain, Constipation, Diarrhea, Black stools, Bloody stools, Vomiting, Bile emesis - Genitourinary Genitourinary: reports: Frequency, Urgency, Incontinence - Musculoskeletal Musculoskeletal: reports: Muscle pain, Stiffness, Joint pain (right shoulder recently worse after falling asleep the wrong way, Sees Siddharth.) - Neurological Neurological: reports: Numbness, Memory problems, Incoordination (gait ataxia) Prior Level of Functionality: She has a caregiver with so many hours per week and month. She does Use a cane in the house, and uses a walker outside the home. She needs help with bathing, dressing. The caregiver is the one that makes the meals, buys the groceries, and takes her to her doctor's appointments.. Exam - Vital Signs Reviewed Vital Signs: Yes Vital Signs: Vital Signs x48h Temp Pulse Resp BP Pulse Ox 12/20/21 16:12 36.4 C L 81 28 H 184/105 H 98 12/20/21 14:09 36.6 C 83 22 160/104 H 96 - Physical Exam General Appearance: positive: Alert, Mild distress (short of breath laughing or speaking to me. She just ate dinner but only had energy to eat about 30%.), Other (elderly female w cognitive loss, simple speech, understanding concepts diff for her.) Eyes Bilateral: positive: PERRL, EOMI ENT: positive: Pharynx nml, Other (half her teeth gone) Neck: positive: No JVD. negative: Stiff neck Respiratory: positive: Wheezes, Rales Cardiovascular: positive: Irregularly irregular, Systolic murmur. negative: Gallop/S4, Friction rub Peripheral Pulses: positive: 1+ Abdomen: positive: Non-tender, No organomegaly, Nml bowel sounds, No distention, Other (large abd panus) Skin: positive: Warm, Dry, Pallor, Skin rash (under breast panus, ernestine), Other (skin of legs shiny and tight w ?blister or two on shins. [place] granulation here and there. no open sores or oozing. nails thck w onychomysosis.) Extremities: positive: Full ROM, Pedal edema (2+ over shins and calves) Neurologic/Psychiatric: positive: Oriented x3, CN's nml (2-12) (mildy deaf and peering at me), Motor nml, Mood/affect nml. negative: Sensation nml, Facial droop, Slurred/abnml speech Conclusion/Plan - Problem List (1) Acute exacerbation of CHF (congestive heart failure) Conclusion/Plan: The patient has a history of longstanding uncontrolled hypertension, diabetes mellitus, and an echo with a preserved ejection fraction. My assumption is that she has diastolic heart failure. There does not seem to be an DC going on, no active ischemia. She will be placed in observation, started on diuretics, blood pressure control. I will contact her Fabric And Textile Factory Worker, Dr. Gonzales tomorrow to see if we can get an Echo report or do we have to do one here. She tells me she is due for a visit and his office has called her to set that up. Her caregiver has to do that. Qualifiers: Heart failure type: diastolic Qualified Code(s): I50.33 - Acute on chronic diastolic (congestive) heart failure (2) Memory loss Conclusion/Plan: Mainly manifested as vague history. Cannot remember certain events and seems to be getting things out of chronological order. But she knows where she is, who she is, and cannot quite figure out why she is here. She knows that she called the ambulance because she is short of breath but she is not understanding what the admission is for. I would guess that she has vascular dementia on the basis of her risk factors and previous hx of pontine stroke. I will be speaking to her sister and updating her on her stay. Seeing what level of cognitive deficit is present and who the power of deputy attorney general is. Acc ording to the patient it is her sister who is the power of deputy attorney general. (3) Type 2 diabetes mellitus with complication, without long-term current use of insulin Conclusion/Plan: Per looking at her medical record, she has long standing uncontrolled diabetes. With complications of retinopathy and neuropathy and chronic kidney disease. While here she will not be on her oral medications and will be started on Lantus or sliding scale insulin as needed. Check A1c in the morning. (4) CAD (coronary artery disease) Conclusion/Plan: History of bypass surgery in the past, recent stent. Is been a year so she is no longer on Plavix according to her. Troponin was checked in the ER and normal. She will be continued on a statin, aspirin, metoprolol. Qualifiers: Coronary Disease-Associated Artery/Lesion type: [place] artery [place] vs. transplanted heart: [place] heart Associated angina: without angina Qualified Code(s): I25.10 - Atherosclerotic heart disease of [place] coronary artery without angina pectoris (5) Chronic atrial fibrillation Conclusion/Plan: This jered lady has a [id number] score of 9 points. She is not on any chronic anticoagulation. But she is rate controlled. Since she is followed by both cardiology and primary care provider, I am sure there is a treatment rationale for lack of anticoagulation. I do not know if she is a fall risk or a bleeding risk. I will discuss with Dr. Valverde tomorrow when I try and call for that echo report. - Lab Results Lab results reviewed: Yes Fish Bones: 12/20/21 14:23 12/20/21 14:23 - Diagnostic Imaging Results Diagnostic Imaging Results: positive: Final report reviewed - EKG Results EKG Interpreted Independently: No Core Measures - Anticipated LOS I expect patient to be DC'd or transferred within 96 hours.: Yes - DVT/VTE - Prophylaxis VTE/DVT Device ordered at admit?: Yes
[2021-12-20 17:32] LABS: B. PARAPERTUSSIS- RESP PCR PAN NOT DETECTED; B. PERTUSSIS- RESP PCR PANEL NOT DETECTED; C. PNEUMONIAE- RESP PCR PANEL NOT DETECTED; CORONAVIRUS 229E-RESP PCR NOT DETECTED; CORONAVIRUS HKU1-RESP PCR NOT DETECTED; CORONAVIRUS NL63-RESP PCR NOT DETECTED; CORONAVIRUS OC43-RESP PCR NOT DETECTED; HUMAN METAPNEUMOVIRUS NOT DETECTED; INFLUENZA A- RESP PCR PANEL NOT DETECTED; INFLUENZA B - RESP PCR PANEL NOT DETECTED; M. PNEUMONIAE- RESP PCR PANEL NOT DETECTED; PARAINFLUENZA VIRUS 1 NOT DETECTED; PARAINFLUENZA VIRUS 2 NOT DETECTED; PARAINFLUENZA VIRUS 3 NOT DETECTED; PARAINFLUENZA VIRUS 4 NOT DETECTED; RHINOVIRUS/ENTEROVIRUS NOT DETECTED; RSV- RESP PCR PANEL NOT DETECTED; SARS-CoV-2 -RESP PCR PANEL NOT DETECTED
[2021-12-20] MEDS: INSULIN ASPART 300 UNIT/3 ML PEN SUBQ SCH ×2 (17:35→21:09)
[2021-12-20] MEDS: SODIUM CHLORIDE FLUSH 0.9% 10 ML SYRINGE IVP SCH (18:04)
[2021-12-20] MEDS: POTASSIUM CHLORIDE 20 MEQ TABLET PO SCH (18:04)
[2021-12-20] MEDS: METOPROLOL TARTRATE 50 MG TABLET PO SCH (20:57)
[2021-12-20] MEDS: SODIUM CHLORIDE FLUSH 0.9% 10 ML SYRINGE IVP PRN (20:59)
[2021-12-20] MEDS ORDERED: FUROSEMIDE 20 MG/2 ML VIAL IVP ONE (21:00)
[2021-12-20] MEDS: ONDANSETRON 4 MG/2 ML VIAL IVP PRN (21:07)
[2021-12-20] MEDS: MIN OIL/DIMETHICON/COCONUT OIL 92 GM TUBE TOP PRN (21:11)
[2021-12-20] MEDS: NYSTATIN POWDER 15 GM TOP SCH (21:11)
[2021-12-21 05:34] LABS: BASOPHILS % (AUTO) 0.2 %; EOSINOPHILS # (AUTO) 0.1 10^3/uL (0.0-0.7); EOSINOPHILS % (AUTO) 0.7 %; HCT - HEMATOCRIT 33.2 % (37.0-47.0); HGB - HEMOGLOBIN 10.6 g/dL (12.0-16.0); LYMPHOCYTES # (AUTO) 0.9 10^3/uL (1.5-3.5); LYMPHOCYTES % (AUTO) 6.8 %; MEAN CORPUSCULAR HEMOGLOBIN 28.3 pg (27.0-31.0); MEAN CORPUSCULAR HGB CONC 31.9 g/dL (32.0-36.0); MEAN CORPUSCULAR VOLUME 88.8 fL (81.0-99.0); MEAN PLATELET VOLUME 9.5 fL (7.9-10.8); MONOCYTES # (AUTO) 0.7 10^3/uL (0.0-1.0); MONOCYTES % (AUTO) 5.6 %; NEUTROPHILS # (AUTO) 11.1 10^3/uL (1.5-6.6); NEUTROPHILS % (AUTO) 86.4 %; PLT - PLATELET COUNT 301 10^3/uL (130-450); RED BLOOD COUNT 3.74 10^6/uL (4.20-5.40); RED CELL DISTRIBUTION WIDTH 16.5 % (12.0-15.0); WHITE BLOOD COUNT 12.8 x10^3/uL (4.8-10.8)
[2021-12-21 05:42] LABS: CALCIUM 8.5 mg/dL (8.5-10.3); POTASSIUM 3.6 mmol/L (3.5-5.0)
[2021-12-21] MEDS: SODIUM CHLORIDE FLUSH 0.9% 10 ML SYRINGE IVP SCH ×3 (06:14→16:21)
[2021-12-21] MEDS: FUROSEMIDE 20 MG/2 ML VIAL IVP SCH ×2 (06:14→14:15)
--- NOTE | 2021-12-21 08:28 | PROVIDER PROGRESS NOTE ---
Subjective - Prog Note Date Prog Note Date: 12/21/21 Prog Note Time: 14:22 - Subjective Subjective: I had not realize she had a previous echocardiogram done here. It was done August 13, 2021 and compared to May 2017. She has an ejection fraction of 60 to 65%. RV normal in size and function. Moderately abnormal right heart pressures with an RVSP at rest of 58 mmHg. Compared to previous echoes her pulmonary artery pressures are going up.Intake and output shows her to be -560 for yesterday. She put out a liter. This morning she is put out 300 cc. Definitely had a brisk urine output and laments that she got no sleep last night. But she still fairly short of breath. Exhausted. Denies chest pain, palpitations. Sitting up at about 45 degrees and comfortable laying flat.With that being said she likes the head of the bed elevated go to sleep. I was able to talk to her Sister Diamond Khan. She is at [phone]. Sister says that Cristal is not good with her diet. Eats lots of fast food with salt on Yakut fries, bags of chips, and really does not watch a low-carb diet. She thinks that may be why she is retaining water and going into congestive heart failure. Current Medications - Current Medications Current Medications: Active Medications Acetaminophen (Acetaminophen 325 Mg Tablet) 650 mg PO Q4HR PRN PRN Reason: Pain 1 to 4 Last Admin: 12/21/21 10:18 Dose: 650 mg Amlodipine Besylate (Amlodipine 5 Mg Tablet) 10 mg PO DAILY COUNT INCLUDES THE [facility] Last Admin: 12/21/21 09:18 Dose: 10 mg Aspirin (Aspirin Ec 81 Mg Tablet) 81 mg PO DAILY COUNT INCLUDES THE [facility] Last Admin: 12/21/21 09:18 Dose: 81 mg Enoxaparin Sodium (Enoxaparin 40 Mg/0.4 Ml Syringe) 40 mg SUBQ DAILY COUNT INCLUDES THE [facility] Last Admin: 12/21/21 09:10 Dose: 40 mg Furosemide (Furosemide 20 Mg/2 Ml Vial) 20 mg IVP BIDDIURETIC COUNT INCLUDES THE [facility] Last Admin: 12/21/21 06:14 Dose: 20 mg Insulin Aspart (Insulin Aspart 300 Unit/3 Ml Pen) 1 - 9 unit SUBQ 0800,1200,1700,2100 COUNT INCLUDES THE [facility]; Protocol Last Admin: 12/21/21 12:00 Dose: 3 unit Losartan Potassium (Losartan 50 Mg Tablet) 100 mg PO DAILY COUNT INCLUDES THE [facility] Last Admin: 12/21/21 09:14 Dose: 100 mg Metoprolol Tartrate (Metoprolol Tartrate 50 Mg Tablet) 100 mg PO BID COUNT INCLUDES THE [facility] Last Admin: 12/21/21 09:11 Dose: 100 mg Mineral Oil (Min Oil/Dimethicon/Coconut Oil 92 Gm Tube) 1 applic TOP PRN PRN PRN Reason: Skin Care Last Admin: 12/20/21 21:11 Dose: 1 applic Nystatin (Nystatin Powder 15 Gm) 1 applic TOP BID COUNT INCLUDES THE [facility] Last Admin: 12/21/21 09:28 Dose: 1 applic Ondansetron HCl (Ondansetron Odt 4 Mg Tablet) 4 mg TL Q6HR PRN PRN Reason: Nausea / Vomiting Ondansetron HCl (Ondansetron 4 Mg/2 Ml Vial) 4 mg IVP Q6HR PRN PRN Reason: Nausea / Vomiting Last Admin: 12/21/21 09:24 Dose: 4 mg Oxycodone HCl (Oxycodone 5 Mg Tablet) 5 mg PO Q4HR PRN PRN Reason: Pain 5 to 7 Potassium Chloride (Potassium Chloride 20 Meq Tablet) 20 meq PO DAILYWM COUNT INCLUDES THE [facility] Last Admin: 12/21/21 09:11 Dose: 20 meq Sodium Chloride (Sodium Chloride Flush 0.9% 10 Ml Syringe) 10 ml IVP PRN PRN PRN Reason: NEEDED PER PROVIDER ORDERS Last Admin: 12/20/21 20:59 Dose: 20 ml Sodium Chloride (Sodium Chloride Flush 0.9% 10 Ml Syringe) 10 ml IVP 0100,0900,1700 COUNT INCLUDES THE [facility] Last Admin: 12/21/21 09:10 Dose: 10 ml Metformin HCl 1,000 mg PO BIDWM 04/21/14 Metoprolol Tartrate 100 mg PO BID 04/21/14 Insulin Glargine [Lantus] 25 unit SUBQ DAILY 09/04/14 Aspirin [Aspir 81] 81 mg PO DAILY 09/19/14 Losartan [Cozaar] 100 mg PO DAILY 09/19/14 Pregabalin [Lyrica] 50 mg PO QPM 09/19/14 Atorvastatin Calcium [Lipitor] 40 mg PO QPM 12/31/14 Insulin Lispro [Humalog] 6 units SQ TIDWM 12/31/14 Cyanocobalamin (Vitamin B-12) [Vitamin B-12 (100mcg tab)] 1,000 mcg PO DAILY 05/09/19 Clopidogrel [Plavix] 75 mg PO DAILY 04/06/21 amLODIPine [Norvasc] 10 mg PO DAILY 04/06/21 Meloxicam [Mobic] 15 mg PO DAILY PRN 12/21/21 Pregabalin [Lyrica] 25 mg PO DAILY 12/21/21 Solifenacin Succinate [Vesicare] 5 mg PO DAILY 12/21/21 Objective - Vital Signs/Intake & Output Reviewed Vital Signs: Yes Vital Signs: Vital Signs x48h Temp Pulse Resp BP Pulse Ox 12/21/21 05:00 36.8 C 86 22 140/45 H 93 Intake & Output: Intake & Output 12/18/21 12/19/21 12/20/21 12/21/21 23:59 23:59 23:59 23:59 Intake Total 440 100 Output Total 1000 300 Balance -560 -200 - Objective General Appearance: positive: Alert, Mild distress, Other (Fatigued appearing elderly female. Gets mildly tachypneic with just speaking.) Eyes Bilateral: positive: PERRL, EOMI ENT: positive: No signs of dehydration Neck: positive: No JVD. negative: Stiff neck Respiratory: positive: Rales, Other (tachypnea) Cardiovascular: positive: Regular rate & rhythm, Tachycardia, Systolic murmur. negative: Gallop/S4 Abdomen: positive: Non-tender, No organomegaly, Nml bowel sounds, No distention Skin: positive: Warm, Dry Extremities: positive: Full ROM, No pedal edema Neurologic/Psychiatric: positive: CN's nml (2-12), Motor nml, Disoriented to time, Other (vague historian and word finding problems at times.) - Lab Results Fish Bones: 12/21/21 05:27 12/21/21 05:27 Other Labs: Lab Results x24hrs 12/21/21 12/21/21 12/21/21 Range/Units 05:27 05:27 05:27 WBC 12.8 H (4.8-10.8) x10^3/uL RBC 3.74 L (4.20-5.40) 10^6/uL Hgb 10.6 L (12.0-16.0) g/dL Hct 33.2 L (37.0-47.0) % MCV 88.8 (81.0-99.0) fL MCH 28.3 (27.0-31.0) pg MCHC 31.9 L (32.0-36.0) g/dL RDW 16.5 H (12.0-15.0) % Plt Count 301 (130-450) 10^3/uL MPV 9.5 (7.9-10.8) fL Neut # (Auto) 11.1 H (1.5-6.6) 10^3/uL Lymph # (Auto) 0.9 L (1.5-3.5) 10^3/uL Wright # (Auto) 0.7 (0.0-1.0) 10^3/uL Eos # (Auto) 0.1 (0.0-0.7) 10^3/uL Baso # (Auto) 0.0 (0.0-0.1) 10^3/uL Absolute Nucleated RBC 0.00 x10^3/uL Nucleated RBC % 0.0 /100WBC PT (9.9-12.6) secs INR (0.8-1.2) Sodium 139 (135-145) mmol/L Potassium 3.6 (3.5-5.0) mmol/L Chloride 102 (101-111) mmol/L Carbon Dioxide 26 (21-32) mmol/L Anion Gap 11.0 (6-13) BUN 14 (6-20) mg/dL Creatinine 1.0 (0.4-1.0) mg/dL Estimated GFR (MDRD) 53 L (>89) Glucose 110 H (70-100) mg/dL Calcium 8.5 (8.5-10.3) mg/dL Total Bilirubin (0.2-1.0) mg/dL AST (10-42) IU/L ALT (10-60) IU/L Alkaline Phosphatase (42-121) IU/L Troponin I High Sens (2.3-14.8) ng/L B-Natriuretic Peptide 1610 H (5-100) pg/mL Total Protein (6.7-8.2) g/dL Albumin (3.2-5.5) g/dL Globulin (2.1-4.2) g/dL Albumin/Globulin Ratio (1.0-2.2) Lipase (22-51) U/L Nasal Adenovirus (PCR) Nasal B. parapertussis DNA (PCR) Nasal Coronavir 229E PCR Nasal Coronavir HKU1 PCR Nasal Coronavir NL63 PCR Nasal Coronavir OC43 PCR Nasal Enterovir/Rhinovir PCR Nasal Influenza B PCR Nasal Influenza A PCR Nasal Parainfluen 1 PCR Nasal Parainfluen 2 PCR Nasal Parainfluen 3 PCR Nasal Parainfluen 4 PCR Nasal RSV (PCR) Nasal B.pertussis DNA PCR Nasal C.pneumoniae (PCR) Christiano Human Metapneumo PCR Nasal M.pneumoniae (PCR) Nasal SARS-CoV-2 (PCR) 12/20/21 12/20/21 12/20/21 Range/Units 16:24 14:23 14:23 WBC (4.8-10.8) x10^3/uL RBC (4.20-5.40) 10^6/uL Hgb (12.0-16.0) g/dL Hct (37.0-47.0) % MCV (81.0-99.0) fL MCH (27.0-31.0) pg MCHC (32.0-36.0) g/dL RDW (12.0-15.0) % Plt Count (130-450) 10^3/uL MPV (7.9-10.8) fL Neut # (Auto) (1.5-6.6) 10^3/uL Lymph # (Auto) (1.5-3.5) 10^3/uL Wright # (Auto) (0.0-1.0) 10^3/uL Eos # (Auto) (0.0-0.7) 10^3/uL Baso # (Auto) (0.0-0.1) 10^3/uL Absolute Nucleated RBC x10^3/uL Nucleated RBC % /100WBC PT (9.9-12.6) secs INR (0.8-1.2) Sodium (135-145) mmol/L Potassium (3.5-5.0) mmol/L Chloride (101-111) mmol/L Carbon Dioxide (21-32) mmol/L Anion Gap (6-13) BUN (6-20) mg/dL Creatinine (0.4-1.0) mg/dL Estimated GFR (MDRD) (>89) Glucose (70-100) mg/dL Calcium (8.5-10.3) mg/dL Total Bilirubin (0.2-1.0) mg/dL AST (10-42) IU/L ALT (10-60) IU/L Alkaline Phosphatase (42-121) IU/L Troponin I High Sens 10.7 (2.3-14.8) ng/L B-Natriuretic Peptide 1504 H (5-100) pg/mL Total Protein (6.7-8.2) g/dL Albumin (3.2-5.5) g/dL Globulin (2.1-4.2) g/dL Albumin/Globulin Ratio (1.0-2.2) Lipase (22-51) U/L Nasal Adenovirus (PCR) NOT DETECTED Nasal B. parapertussis DNA (PCR) NOT DETECTED Nasal Coronavir 229E PCR NOT DETECTED Nasal Coronavir HKU1 PCR NOT DETECTED Nasal Coronavir NL63 PCR NOT DETECTED Nasal Coronavir OC43 PCR NOT DETECTED Nasal Enterovir/Rhinovir PCR NOT DETECTED Nasal Influenza B PCR NOT DETECTED Nasal Influenza A PCR NOT DETECTED Nasal Parainfluen 1 PCR NOT DETECTED Nasal Parainfluen 2 PCR NOT DETECTED Nasal Parainfluen 3 PCR NOT DETECTED Nasal Parainfluen 4 PCR NOT DETECTED Nasal RSV (PCR) NOT DETECTED Nasal B.pertussis DNA PCR NOT DETECTED Nasal C.pneumoniae (PCR) NOT DETECTED Christiano Human Metapneumo PCR NOT DETECTED Nasal M.pneumoniae (PCR) NOT DETECTED Nasal SARS-CoV-2 (PCR) NOT DETECTED 12/20/21 12/20/21 12/20/21 Range/Units 14:23 14:23 14:23 WBC 10.8 (4.8-10.8) x10^3/uL RBC 4.41 (4.20-5.40) 10^6/uL Hgb 12.5 (12.0-16.0) g/dL Hct 39.6 (37.0-47.0) % MCV 89.8 (81.0-99.0) fL MCH 28.3 (27.0-31.0) pg MCHC 31.6 L (32.0-36.0) g/dL RDW 16.5 H (12.0-15.0) % Plt Count 329 (130-450) 10^3/uL MPV 9.5 (7.9-10.8) fL Neut # (Auto) 9.4 H (1.5-6.6) 10^3/uL Lymph # (Auto) 0.6 L (1.5-3.5) 10^3/uL Wright # (Auto) 0.7 (0.0-1.0) 10^3/uL Eos # (Auto) 0.1 (0.0-0.7) 10^3/uL Baso # (Auto) 0.0 (0.0-0.1) 10^3/uL Absolute Nucleated RBC 0.00 x10^3/uL Nucleated RBC % 0.0 /100WBC PT 14.0 H (9.9-12.6) secs INR 1.3 H (0.8-1.2) Sodium 139 (135-145) mmol/L Potassium 4.0 (3.5-5.0) mmol/L Chloride 103 (101-111) mmol/L Carbon Dioxide 25 (21-32) mmol/L Anion Gap 11.0 (6-13) BUN 18 (6-20) mg/dL Creatinine 0.8 (0.4-1.0) mg/dL Estimated GFR (MDRD) 69 L (>89) Glucose 132 H (70-100) mg/dL Calcium 9.4 (8.5-10.3) mg/dL Total Bilirubin 1.4 H (0.2-1.0) mg/dL AST 17 (10-42) IU/L ALT 17 (10-60) IU/L Alkaline Phosphatase 76 (42-121) IU/L Troponin I High Sens (2.3-14.8) ng/L B-Natriuretic Peptide (5-100) pg/mL Total Protein 7.5 (6.7-8.2) g/dL Albumin 3.8 (3.2-5.5) g/dL Globulin 3.7 (2.1-4.2) g/dL Albumin/Globulin Ratio 1.0 (1.0-2.2) Lipase 29 (22-51) U/L Nasal Adenovirus (PCR) Nasal B. parapertussis DNA (PCR) Nasal Coronavir 229E PCR Nasal Coronavir HKU1 PCR Nasal Coronavir NL63 PCR Nasal Coronavir OC43 PCR Nasal Enterovir/Rhinovir PCR Nasal Influenza B PCR Nasal Influenza A PCR Nasal Parainfluen 1 PCR Nasal Parainfluen 2 PCR Nasal Parainfluen 3 PCR Nasal Parainfluen 4 PCR Nasal RSV (PCR) Nasal B.pertussis DNA PCR Nasal C.pneumoniae (PCR) Christiano Human Metapneumo PCR Nasal M.pneumoniae (PCR) Nasal SARS-CoV-2 (PCR) ABX Reporting Has patient been on IV antibiotics over the past 48 hours?: No Assessment/Plan - Problem List (1) Acute exacerbation of CHF (congestive heart failure) Impression: The patient has a history of longstanding uncontrolled hypertension, diabetes mellitus, and an echo with a preserved ejection fraction. Sister confirms that diet is quite bad with lots of salt intake. My assumption is that she has diastolic heart failure. There does not seem to be an SD going on, no active ischemia. HOwever her atrial fib is new (see #5). She will be kept in observation status for today, and not discharged yet due to continued hypoxia and sob. On diuretics, blood pressure control. Continue IV diuresis. I was able to speak to Dr. Valverde's office. Tuesday is his day off and they sent me the last note where he saw her. She was doing quite well, stable status, and tolerating her medications. No symptoms of angina. No change in medications. At that time her medications were Cozaar 50 mg, metoprolol 50 mg twice daily, sublingual nitroglycerin, and chlorthalidone. She was also on Plavix and aspirin and atorvastatin. Qualifiers: Heart failure type: diastolic Qualified Code(s): I50.33 - Acute on chronic diastolic (congestive) heart failure (2) Memory loss Conclusion/Plan: Mainly manifested as vague history. Cannot remember certain events and seems to be getting things out of chronological order. But she knows where she is, who she is, and cannot quite figure out why she is here. She knows that she called the ambulance because she is short of breath but she is not understanding what the admission is for. I would guess that she has vascular dementia on the basis of her risk factors and previous hx of pontine stroke. I Spoke to her sister and did update her on her stay here with us today. We plan on keeping her overnight. Tomorrow if she is not improved enough to be sent home she will be transition to inpatient status. Power of civil rights attorney is his sister. (3) Type 2 diabetes mellitus with complication, without long-term current use of insulin Conclusion/Plan: Per looking at her medical record, she has long standing uncontrolled diabetes. With complications of retinopathy and neuropathy and chronic kidney disease. While here she will not be on her oral medications and will be started on Lantus or sliding scale insulin as needed. A1c is 7.7%. So she has not been controlled at home. (4) CAD (coronary artery disease) Conclusion/Plan: History of bypass surgery in the past, recent stent. Is been a year so she is no longer on Plavix according to her. Troponin was checked in the ER and normal. She will be continued on a statin, aspirin, metoprolol. Qualifiers: Coronary Disease-Associated Artery/Lesion type: [place] artery [place] vs. transplanted heart: [place] heart Associated angina: without angina Qualified Code(s): I25.10 - Atherosclerotic heart disease of [place] coronary artery without angina pectoris (5) Chronic atrial fibrillation Conclusion/Plan: This jered lady has a [id number] score of 9 points. She is not on any chronic anticoagulation. But she is rate controlled. Since she is followed by both cardiology and primary care provider, I am sure there is a treatment rationale for lack of anticoagulation. I do not know if she is a fall risk or a bleeding risk. In reading Dr. Valverde's notes, there is no mention of atrial fibrillation. So even of the emergency room states this is chronic atrial f ibrillation this may be a new diagnosis for her. As such I will be starting Eliquis. She did take Plavix which was stopped in October or November.
[2021-12-21] MEDS ORDERED: ASPIRIN EC 81 MG TABLET PO SCH (09:00)
[2021-12-21] MEDS ORDERED: ENOXAPARIN 40 MG/0.4 ML SYRINGE SUBQ SCH (09:00)
[2021-12-21] MEDS: INSULIN ASPART 300 UNIT/3 ML PEN SUBQ SCH ×4 (09:09→21:15)
[2021-12-21] MEDS: POTASSIUM CHLORIDE 20 MEQ TABLET PO SCH (09:11)
[2021-12-21] MEDS: METOPROLOL TARTRATE 50 MG TABLET PO SCH ×2 (09:11→21:14)
[2021-12-21] MEDS: LOSARTAN 50 MG TABLET PO SCH (09:14)
[2021-12-21] MEDS: amLODIPine 5 MG TABLET PO SCH (09:18)
[2021-12-21] MEDS: ONDANSETRON 4 MG/2 ML VIAL IVP PRN (09:24)
[2021-12-21] MEDS: NYSTATIN POWDER 15 GM TOP SCH ×2 (09:28→21:15)
[2021-12-21 10:14] LABS: ESTIMATED AVERAGE GLUCOSE 174 mg/dL (70-100); HEMOGLOBIN A1c% 7.7 % (4.27-6.07)
--- NOTE | 2021-12-21 11:12 | PHARMACY PROGRESS NOTE ---
- Best Possible Medication History Admit Date and Time: 12/20/21 6912 Processed by: Pharmacy Medication History completed: Yes Patient Interview: Pt unable to participate Secondary Source(s): Physician records, Pharmacy records, Insurance records As the person ultimately responsible for medication therapy, providers are able to order a medication from an existing home medication list in [facility] via the "Reconcile Routine" prior to Confirmation of that medication by customer support analyst. Such practice is discouraged except when the physician, in their clinical judgment, deems that a medical need exists for a medication without regard to previous use.
[2021-12-21] MEDS: SODIUM CHLORIDE FLUSH 0.9% 10 ML SYRINGE IVP PRN (14:15)
[2021-12-21] MEDS: APIXABAN 5 MG TABLET PO SCH (21:15)
[2021-12-22 06:05] LABS: CALCIUM 8.2 mg/dL (8.5-10.3); POTASSIUM 3.8 mmol/L (3.5-5.0)
[2021-12-22 06:08] LABS: BASOPHILS % (AUTO) 0.4 %; EOSINOPHILS # (AUTO) 0.3 10^3/uL (0.0-0.7); EOSINOPHILS % (AUTO) 4.2 %; HCT - HEMATOCRIT 30.6 % (37.0-47.0); HGB - HEMOGLOBIN 9.8 g/dL (12.0-16.0); LYMPHOCYTES # (AUTO) 0.9 10^3/uL (1.5-3.5); LYMPHOCYTES % (AUTO) 11.9 %; MEAN CORPUSCULAR HEMOGLOBIN 28.7 pg (27.0-31.0); MEAN CORPUSCULAR VOLUME 89.5 fL (81.0-99.0); MEAN PLATELET VOLUME 9.7 fL (7.9-10.8); MONOCYTES # (AUTO) 0.7 10^3/uL (0.0-1.0); MONOCYTES % (AUTO) 9.1 %; NEUTROPHILS # (AUTO) 5.5 10^3/uL (1.5-6.6); NEUTROPHILS % (AUTO) 74.3 %; PLT - PLATELET COUNT 282 10^3/uL (130-450); RED BLOOD COUNT 3.42 10^6/uL (4.20-5.40); RED CELL DISTRIBUTION WIDTH 16.8 % (12.0-15.0); WHITE BLOOD COUNT 7.5 x10^3/uL (4.8-10.8)
[2021-12-22] MEDS: FUROSEMIDE 20 MG/2 ML VIAL IVP SCH ×2 (06:58→14:45)
[2021-12-22] MEDS: SODIUM CHLORIDE FLUSH 0.9% 10 ML SYRINGE IVP SCH ×4 (06:58→23:40)
[2021-12-22 08:16] LABS: ABSOLUTE RETICS # AUTO 0.066 10^6/uL (0.020-0.110); RED BLOOD COUNT 3.43 10^6/uL (4.20-5.40); RETICULOCYTE COUNT % (AUTO) 1.92 % (0.5-2.3)
[2021-12-22 08:44] LABS: % IRON SATURATION 8 % (20-50); IRON 26 ug/dL (28-170); TOTAL IRON BINDING CAPACITY 328 ug/dL (250-450); TRANSFERRIN 234 mg/dL (192-382)
[2021-12-22] MEDS: INSULIN ASPART 300 UNIT/3 ML PEN SUBQ SCH ×4 (08:48→21:23)
[2021-12-22] MEDS: NYSTATIN POWDER 15 GM TOP SCH ×2 (08:50→21:22)
[2021-12-22] MEDS: MIN OIL/DIMETHICON/COCONUT OIL 92 GM TUBE TOP PRN (08:50)
[2021-12-22 08:56] LABS: FERRITIN 24.3 ng/mL (11.0-306.8)
[2021-12-22] MEDS: METOPROLOL TARTRATE 50 MG TABLET PO SCH ×2 (09:08→21:21)
[2021-12-22] MEDS: LOSARTAN 50 MG TABLET PO SCH (10:08)
[2021-12-22] MEDS: amLODIPine 5 MG TABLET PO SCH (10:38)
[2021-12-22] MEDS: APIXABAN 5 MG TABLET PO SCH ×2 (10:49→21:21)
[2021-12-22] MEDS: PREGABALIN 25 MG CAPSULE PO SCH ×2 (10:51→21:21)
[2021-12-22] MEDS: ONDANSETRON ODT 4 MG TABLET TL PRN ×2 (11:27→21:26)
--- NOTE | 2021-12-22 13:22 | PROVIDER PROGRESS NOTE ---
Assessment/Plan - Problem List (1) Acute exacerbation of CHF (congestive heart failure) Assessment/Plan: 12/22 She feels her breathing is better. Patient had a 95% oxygen saturation on 2 L of oxygen. BNP is reduced significantly. Continue intravenous Lasix. Continue home medication Cozaar, metoprolol, Lipitor. Had cardiac monitor technician for patient's history of A fibrillation and CHF (2) Memory loss Conclusion/Plan: stable, Mainly manifested as vague history. (3) Type 2 diabetes mellitus with complication, without long-term current use of insulin Conclusion/Plan: continue slide scale and hypoglycemia and glucose check. pt's A1c is 7.7%. (4) CAD (coronary artery disease) Conclusion/Plan: stable, ontinue home medication Cozaar, metoprolol, Lipitor. Had cardiac monitor technician. continue eliquis. History of bypass surgery in the past, recent stent. Is been a year so she is no longer on Plavix according to her. Troponin was checked in the ER and normal. She will be continued on a statin, aspirin, metoprolol. (5) Chronic atrial fibrillation Conclusion/Plan: HR is stable, continue Eliquis, And metoprolol and the cardiac monitor technician - Current Meds Current Meds: Current Medications Generic Name Dose Route Start Last Admin Trade Name Freq PRN Reason Stop Dose Admin Acetaminophen 650 mg 12/20/21 16:05 12/21/21 10:18 Acetaminophen 325 Mg Tablet PO 650 mg Q4HR PRN Administration Pain 1 to 4 Amlodipine Besylate 10 mg 12/21/21 09:00 12/22/21 10:38 Amlodipine 5 Mg Tablet PO 10 mg DAILY LOBITO Administration Apixaban 5 mg 12/21/21 21:00 12/22/21 10:49 Apixaban 5 Mg Tablet PO 5 mg BID LOBITO Administration Furosemide 20 mg 12/21/21 06:00 12/22/21 06:58 Furosemide 20 Mg/2 Ml Vial IVP 20 mg BIDDIURETIC LOBITO Administration Insulin Aspart 2 - 10 unit 12/21/21 21:00 12/22/21 12:05 Insulin Aspart 300 Unit/3 Ml Pen SUBQ 8 unit 0800,1200,1700,2100 LOBITO Administration Protocol Losartan Potassium 100 mg 12/21/21 09:00 12/22/21 10:08 Losartan 50 Mg Tablet PO 100 mg DAILY LOBITO Administration Metoprolol Tartrate 100 mg 12/20/21 21:00 12/22/21 09:08 Metoprolol Tartrate 50 Mg Tablet PO 100 mg BID LOBITO Administration Mineral Oil 1 applic 12/20/21 18:23 12/22/21 08:50 Min Oil/Dimethicon/Coconut Oil 92 Gm Tube TOP 1 applic PRN PRN Administration Skin Care Nystatin 1 applic 12/20/21 21:00 12/22/21 08:50 Nystatin Powder 15 Gm TOP 1 applic BID LOBITO Administration Ondansetron HCl 4 mg 12/20/21 16:05 12/22/21 11:27 Ondansetron Odt 4 Mg Tablet TL 4 mg Q6HR PRN Administration Nausea / Vomiting Ondansetron HCl 4 mg 12/20/21 16:05 12/21/21 09:24 Ondansetron 4 Mg/2 Ml Vial IVP 4 mg Q6HR PRN Administration Nausea / Vomiting Oxycodone HCl 5 mg 12/20/21 16:05 12/21/21 16:21 Oxycodone 5 Mg Tablet PO 5 mg Q4HR PRN Administration Pain 5 to 7 Potassium Chloride 20 meq 12/20/21 17:00 12/21/21 09:11 Potassium Chloride 20 Meq Tablet PO 20 meq DAILYWM LOBITO Administration Pregabalin 25 mg 12/22/21 09:00 12/22/21 10:51 Pregabalin 25 Mg Capsule PO 25 mg DAILY LOBITO Administration Sodium Chloride 10 ml 12/20/21 16:05 12/21/21 14:15 Sodium Chloride Flush 0.9% 10 Ml Syringe IVP 10 ml PRN PRN Administration NEEDED PER PROVIDER ORDERS Sodium Chloride 10 ml 12/20/21 17:00 12/22/21 09:12 Sodium Chloride Flush 0.9% 10 Ml Syringe IVP 10 ml 0100,0900,1700 LOBITO Administration - Lab Result Fish Bone Diagrams: 12/22/21 05:41 12/22/21 05:41 - Additional Planning My Orders: My Active Orders 12/22/21 FECAL OCCULT BLOOD (FIT) Urgent 12/22/21 08:00 Pantoprazole [Protonix] 40 mg PO QDAC 12/22/21 09:00 Pregabalin [Lyrica] 25 mg PO DAILY 12/22/21 10:00 Ferrous Sulfate [Feosol] 325 mg PO DAILYWM 12/22/21 10:42 Out of bed 3+ hours today [RC] TID 12/22/21 21:00 Atorvastatin [Lipitor] 40 mg PO QPM Pregabalin [Lyrica] 50 mg PO QPM 12/23/21 05:00 BMP - BASIC METABOLIC PANEL [CHEM] DAILYLAB BNP - B-NATRIURETIC PEPTIDE [IAI] DAILYLAB CBC - COMP BLD CT W/AUTO DIFF [HEME] DAILYLAB 12/24/21 05:00 BMP - BASIC METABOLIC PANEL [CHEM] DAILYLAB BNP - B-NATRIURETIC PEPTIDE [IAI] DAILYLAB CBC - COMP BLD CT W/AUTO DIFF [HEME] DAILYLAB 12/25/21 05:00 BMP - BASIC METABOLIC PANEL [CHEM] DAILYLAB BNP - B-NATRIURETIC PEPTIDE [IAI] DAILYLAB CBC - COMP BLD CT W/AUTO DIFF [HEME] DAILYLAB 12/26/21 05:00 BMP - BASIC METABOLIC PANEL [CHEM] DAILYLAB BNP - B-NATRIURETIC PEPTIDE [IAI] DAILYLAB CBC - COMP BLD CT W/AUTO DIFF [HEME] DAILYLAB 12/27/21 05:00 BMP - BASIC METABOLIC PANEL [CHEM] DAILYLAB BNP - B-NATRIURETIC PEPTIDE [IAI] DAILYLAB CBC - COMP BLD CT W/AUTO DIFF [HEME] DAILYLAB 12/28/21 05:00 BMP - BASIC METABOLIC PANEL [CHEM] DAILYLAB BNP - B-NATRIURETIC PEPTIDE [IAI] DAILYLAB CBC - COMP BLD CT W/AUTO DIFF [HEME] DAILYLAB Subjective - Subjective Patient Reports: Feeling Better, Resting Comfortably Objective Vital Signs: Vital Signs - 24 hr 12/21/21 12/21/21 12/21/21 14:14 15:46 20:58 Temperature 36.7 C 36.5 C Heart Rate [ 76 71 Brachial] Heart Rate [ 75 Monitoring electrodes] Respiratory 24 20 Rate Blood Pressure Blood Pressure [Left Brachial artery] Blood Pressure 138/58 H 127/54 L 140/68 H [Right Brachial artery] O2 Saturation 93 93 12/21/21 12/22/21 12/22/21 21:14 00:35 05:57 Temperature 36.6 C 36.7 C Heart Rate [ 69 79 Brachial] Heart Rate [ Monitoring electrodes] Respiratory 21 20 Rate Blood Pressure 140/68 H Blood Pressure 145/86 H [Left Brachial artery] Blood Pressure 123/65 [Right Brachial artery] O2 Saturation 92 92 12/22/21 12/22/21 12/22/21 07:19 09:08 12:05 Temperature 36.8 C Heart Rate [ 92 Brachial] Heart Rate [ Monitoring electrodes] Respiratory 20 20 Rate Blood Pressure 135/54 H Blood Pressure [Left Brachial artery] Blood Pressure 153/75 H [Right Brachial artery] O2 Saturation 96 83 L 12/22/21 12/22/21 12:07 12:09 Temperature 36.7 C Heart Rate [ 91 Brachial] Heart Rate [ Monitoring electrodes] Respiratory 20 18 Rate Blood Pressure Blood Pressure [Left Brachial artery] Blood Pressure 144/74 H [Right Brachial artery] O2 Saturation 93 95 Oxygen O2 Source Nasal cannula Oxygen Flow Rate 4 I&O (Last 24 Hrs): Intake and Output Totals x24h 12/20/21 12/21/21 12/22/21 23:59 23:59 23:59 Intake Total 440 807 360 Output Total 1000 425 225 Balance -560 382 135 General: Alert, Oriented x3, Cooperative, No acute distress HEENT: Atraumatic Neck: Supple Lymphatic: no adenopathy Neuro: Alert, Non Focal, Oriented Times 3 Cardiovascular: Regular rate, Normal S1, Normal S2 Respiratory: Chest non-tender, No respiratory distress Abdomen: Normal bowel sounds, Soft Extremities: Normal pulses - Results Results: Laboratory Results WBC 7.5 x10^3/uL (4.8-10.8) 12/22/21 05:41 RBC 3.42 10^6/uL (4.20-5.40) L 12/22/21 05:41 RBC 3.43 10^6/uL (4.20-5.40) L 12/22/21 05:41 Hgb 9.8 g/dL (12.0-16.0) L 12/22/21 05:41 Hct 30.6 % (37.0-47.0) L 12/22/21 05:41 MCV 89.5 fL (81.0-99.0) 12/22/21 05:41 MCH 28.7 pg (27.0-31.0) 12/22/21 05:41 MCHC 32.0 g/dL (32.0-36.0) 12/22/21 05:41 RDW 16.8 % (12.0-15.0) H 12/22/21 05:41 Plt Count 282 10^3/uL (130-450) 12/22/21 05:41 MPV 9.7 fL (7.9-10.8) 12/22/21 05:41 Reticulocyte % (Auto) 1.92 % (0.5-2.3) 12/22/21 05:41 Neut # (Auto) 5.5 10^3/uL (1.5-6.6) 12/22/21 05:41 Lymph # (Auto) 0.9 10^3/uL (1.5-3.5) L 12/22/21 05:41 [place] # (Auto) 0.7 10^3/uL (0.0-1.0) 12/22/21 05:41 Eos # (Auto) 0.3 10^3/uL (0.0-0.7) 12/22/21 05:41 Baso # (Auto) 0.0 10^3/uL (0.0-0.1) 12/22/21 05:41 Absolute Nucleated RBC 0.00 x10^3/uL 12/22/21 05:41 Nucleated RBC % 0.0 /100WBC 12/22/21 05:41 Absolute Retic 0.066 10^6/uL (0.020-0.110) 12/22/21 05:41 PT 14.0 secs (9.9-12.6) H 12/20/21 14:23 INR 1.3 (0.8-1.2) H 12/20/21 14:23 Sodium 135 mmol/L (135-145) 12/22/21 05:41 Potassium 3.8 mmol/L (3.5-5.0) 12/22/21 05:41 Chloride 101 mmol/L (101-111) 12/22/21 05:41 Carbon Dioxide 25 mmol/L (21-32) 12/22/21 05:41 Anion Gap 9.0 (6-13) 12/22/21 05:41 BUN 19 mg/dL (6-20) 12/22/21 05:41 Creatinine 1.0 mg/dL (0.4-1.0) 12/22/21 05:41 Estimated GFR (MDRD) 53 (>89) L 12/22/21 05:41 Glucose 133 mg/dL (70-100) H 12/22/21 05:41 Estimat Average Glucose 174 mg/dL (70-100) H 12/21/21 05:27 Hemoglobin A1c % 7.7 % (4.27-6.07) H 12/21/21 05:27 Calcium 8.2 mg/dL (8.5-10.3) L 12/22/21 05:41 Iron 26 ug/dL (28-170) L 12/22/21 05:41 TIBC 328 ug/dL (250-450) 12/22/21 05:41 % Saturation 8 % (20-50) L 12/22/21 05:41 Transferrin 234 mg/dL (192-382) 12/22/21 05:41 Ferritin 24.3 ng/mL (11.0-306.8) 12/22/21 05:41 Total Bilirubin 1.4 mg/dL (0.2-1.0) H 12/20/21 14:23 AST 17 IU/L (10-42) 12/20/21 14:23 ALT 17 IU/L (10-60) 12/20/21 14:23 Alkaline Phosphatase 76 IU/L (42-121) 12/20/21 14:23 Lactate Dehydrogenase 124 IU/L (91-225) 12/22/21 05:41 Troponin I High Sens 10.7 ng/L (2.3-14.8) 12/20/21 14:23 B-Natriuretic Peptide 824 pg/mL (5-100) H 12/22/21 05:41 Total Protein 7.5 g/dL (6.7-8.2) 12/20/21 14:23 Albumin 3.8 g/dL (3.2-5.5) 12/20/21 14:23 Globulin 3.7 g/dL (2.1-4.2) 12/20/21 14:23 Albumin/Globulin Ratio 1.0 (1.0-2.2) 12/20/21 14:23 Lipase 29 U/L (22-51) 12/20/21 14:23 Vitamin B12 676 pg/mL (180-914) 12/22/21 05:41 Nasal Adenovirus (PCR) NOT DETECTED 12/20/21 16:24 Nasal B. parapertussis DNA (PCR) NOT DETECTED 12/20/21 16:24 Nasal Coronavir 229E PCR NOT DETECTED 12/20/21 16:24 Nasal Coronavir HKU1 PCR NOT DETECTED 12/20/21 16:24 Nasal Coronavir NL63 PCR NOT DETECTED 12/20/21 16:24 Nasal Coronavir OC43 PCR NOT DETECTED 12/20/21 16:24 Nasal Enterovir/Rhinovir PCR NOT DETECTED 12/20/21 16:24 Nasal Influenza B PCR NOT DETECTED 12/20/21 16:24 Nasal Influenza A PCR NOT DETECTED 12/20/21 16:24 Nasal Parainfluen 1 PCR NOT DETECTED 12/20/21 16:24 Nasal Parainfluen 2 PCR NOT DETECTED 12/20/21 16:24 Nasal Parainfluen 3 PCR NOT DETECTED 12/20/21 16:24 Nasal Parainfluen 4 PCR NOT DETECTED 12/20/21 16:24 Nasal RSV (PCR) NOT DETECTED 12/20/21 16:24 Nasal B.pertussis DNA PCR NOT DETECTED 12/20/21 16:24 Nasal C.pneumoniae (PCR) NOT DETECTED 12/20/21 16:24 Christiano Human Metapneumo PCR NOT DETECTED 12/20/21 16:24 Nasal M.pneumoniae (PCR) NOT DETECTED 12/20/21 16:24 Nasal SARS-CoV-2 (PCR) NOT DETECTED 12/20/21 16:24 - Procedures Procedures: Procedures CATARAC PHACOEMULS/ASPIR (09/19/14) INSERT LENS AT CATAR EXT (09/19/14) ABX Reporting Has patient been on IV antibiotics over the past 48 hours?: No Current Medications - Current Medications Current Medications: Active Medications Acetaminophen (Acetaminophen 325 Mg Tablet) 650 mg PO Q4HR PRN PRN Reason: Pain 1 to 4 Last Admin: 12/21/21 10:18 Dose: 650 mg Amlodipine Besylate (Amlodipine 5 Mg Tablet) 10 mg PO DAILY LOBITO Last Admin: 12/22/21 10:38 Dose: 10 mg Apixaban (Apixaban 5 Mg Tablet) 5 mg PO BID LOBITO Last Admin: 12/22/21 10:49 Dose: 5 mg Atorvastatin Calcium (Atorvastatin 40 Mg Tablet) 40 mg PO QPM LOBITO Ferrous Sulfate (Ferrous Sulfate 325 Mg Tablet) 325 mg PO DAILYWM LOBITO Furosemide (Furosemide 20 Mg/2 Ml Vial) 20 mg IVP BIDDIURETIC LOBITO Last Admin: 12/22/21 06:58 Dose: 20 mg Insulin Aspart (Insulin Aspart 300 Unit/3 Ml Pen) 2 - 10 unit SUBQ 0800,1200,1 700,2100 [facility]; Protocol Last Admin: 12/22/21 12:05 Dose: 8 unit Losartan Potassium (Losartan 50 Mg Tablet) 100 mg PO DAILY [facility] Last Admin: 12/22/21 10:08 Dose: 100 mg Metoprolol Tartrate (Metoprolol Tartrate 50 Mg Tablet) 100 mg PO BID [facility] Last Admin: 12/22/21 09:08 Dose: 100 mg Mineral Oil (Min Oil/Dimethicon/Coconut Oil 92 Gm Tube) 1 applic TOP PRN PRN PRN Reason: Skin Care Last Admin: 12/22/21 08:50 Dose: 1 applic Nystatin (Nystatin Powder 15 Gm) 1 applic TOP BID [facility] Last Admin: 12/22/21 08:50 Dose: 1 applic Ondansetron HCl (Ondansetron Odt 4 Mg Tablet) 4 mg TL Q6HR PRN PRN Reason: Nausea / Vomiting Last Admin: 12/22/21 11:27 Dose: 4 mg Ondansetron HCl (Ondansetron 4 Mg/2 Ml Vial) 4 mg IVP Q6HR PRN PRN Reason: Nausea / Vomiting Last Admin: 12/21/21 09:24 Dose: 4 mg Oxycodone HCl (Oxycodone 5 Mg Tablet) 5 mg PO Q4HR PRN PRN Reason: Pain 5 to 7 Last Admin: 12/21/21 16:21 Dose: 5 mg Pantoprazole Sodium (Pantoprazole 40 Mg Tablet) 40 mg PO QDAC [facility] Potassium Chloride (Potassium Chloride 20 Meq Tablet) 20 meq PO DAILYWM [facility] Last Admin: 12/21/21 09:11 Dose: 20 meq Pregabalin (Pregabalin 25 Mg Capsule) 50 mg PO QPM [facility] Pregabalin (Pregabalin 25 Mg Capsule) 25 mg PO DAILY [facility] Last Admin: 12/22/21 10:51 Dose: 25 mg Sodium Chloride (Sodium Chloride Flush 0.9% 10 Ml Syringe) 10 ml IVP PRN PRN PRN Reason: NEEDED PER PROVIDER ORDERS Last Admin: 12/21/21 14:15 Dose: 10 ml Sodium Chloride (Sodium Chloride Flush 0.9% 10 Ml Syringe) 10 ml IVP 0100,0900,1700 [facility] Last Admin: 12/22/21 09:12 Dose: 10 ml Metformin HCl 1,000 mg PO BIDWM 04/21/14 Metoprolol Tartrate 100 mg PO BID 04/21/14 Insulin Glargine [Lantus] 25 unit SUBQ DAILY 09/04/14 Aspirin [Aspir 81] 81 mg PO DAILY 09/19/14 Losartan [Cozaar] 100 mg PO DAILY 09/19/14 Pregabalin [Lyrica] 50 mg PO QPM 09/19/14 Atorvastatin Calcium [Lipitor] 40 mg PO QPM 12/31/14 Insulin Lispro [Humalog] 6 units SQ TIDWM 12/31/14 Cyanocobalamin (Vitamin B-12) [Vitamin B-12 (100mcg tab)] 1,000 mcg PO DAILY 05/09/19 Clopidogrel [Plavix] 75 mg PO DAILY 04/06/21 amLODIPine [Norvasc] 10 mg PO DAILY 04/06/21 Meloxicam [Mobic] 15 mg PO DAILY PRN 12/21/21 Pregabalin [Lyrica] 25 mg PO DAILY 12/21/21 Solifenacin Succinate [Vesicare] 5 mg PO DAILY 12/21/21
[2021-12-22] MEDS: SODIUM CHLORIDE FLUSH 0.9% 10 ML SYRINGE IVP PRN (14:47)
[2021-12-22] MEDS: PANTOPRAZOLE 40 MG TABLET PO SCH (14:48)
[2021-12-22] MEDS: FERROUS SULFATE 325 MG TABLET PO SCH (17:51)
[2021-12-22] MEDS: POTASSIUM CHLORIDE 20 MEQ TABLET PO SCH (17:51)
[2021-12-22] MEDS: ATORVASTATIN 40 MG TABLET PO SCH (21:22)
[2021-12-23 05:41] LABS: BASOPHILS % (AUTO) 0.3 %; EOSINOPHILS # (AUTO) 0.3 10^3/uL (0.0-0.7); EOSINOPHILS % (AUTO) 3.1 %; HCT - HEMATOCRIT 30.8 % (37.0-47.0); HGB - HEMOGLOBIN 10.1 g/dL (12.0-16.0); LYMPHOCYTES # (AUTO) 1.1 10^3/uL (1.5-3.5); LYMPHOCYTES % (AUTO) 13.2 %; MEAN CORPUSCULAR HGB CONC 32.8 g/dL (32.0-36.0); MEAN CORPUSCULAR VOLUME 88.5 fL (81.0-99.0); MEAN PLATELET VOLUME 9.8 fL (7.9-10.8); MONOCYTES # (AUTO) 0.7 10^3/uL (0.0-1.0); MONOCYTES % (AUTO) 9.2 %; NEUTROPHILS # (AUTO) 5.9 10^3/uL (1.5-6.6); NEUTROPHILS % (AUTO) 73.9 %; PLT - PLATELET COUNT 301 10^3/uL (130-450); RED BLOOD COUNT 3.48 10^6/uL (4.20-5.40); RED CELL DISTRIBUTION WIDTH 16.6 % (12.0-15.0); WHITE BLOOD COUNT 7.9 x10^3/uL (4.8-10.8)
[2021-12-23 05:49] LABS: CALCIUM 8.4 mg/dL (8.5-10.3); POTASSIUM 3.6 mmol/L (3.5-5.0)
[2021-12-23] MEDS: FUROSEMIDE 20 MG/2 ML VIAL IVP SCH ×2 (06:27→14:38)
[2021-12-23] MEDS: PANTOPRAZOLE 40 MG TABLET PO SCH (06:27)
[2021-12-23] MEDS: SODIUM CHLORIDE FLUSH 0.9% 10 ML SYRINGE IVP PRN (06:27)
[2021-12-23] MEDS: METOPROLOL TARTRATE 50 MG TABLET PO SCH ×2 (08:25→20:43)
[2021-12-23] MEDS: NYSTATIN POWDER 15 GM TOP SCH ×2 (08:26→20:47)
[2021-12-23] MEDS: APIXABAN 5 MG TABLET PO SCH ×2 (08:26→20:44)
[2021-12-23] MEDS: INSULIN ASPART 300 UNIT/3 ML PEN SUBQ SCH ×5 (08:27→20:47)
[2021-12-23] MEDS: SODIUM CHLORIDE FLUSH 0.9% 10 ML SYRINGE IVP SCH ×2 (08:38→16:23)
--- NOTE | 2021-12-23 09:21 | PROVIDER PROGRESS NOTE ---
Assessment/Plan - Problem List (1) Acute exacerbation of CHF (congestive heart failure) Assessment/Plan: 12/23 Patient still need 1 L oxygen and had 92% O2 saturation. BNP is slightly elevated. plan: continue IV of Lasix, fluid restrict, daily weight, I&Os, lab monitor, vital monitor closely. 12/22 She feels her breathing is better. Patient had a 95% oxygen saturation on 2 L of oxygen. BNP is reduced significantly. Continue intravenous Lasix. Continue home medication Cozaar, metoprolol, Lipitor. Had vehicle monitor technician for patient's history of A fibrillation and CHF (2) Memory loss Conclusion/Plan: stable, Mainly manifested as vague history. (3) Type 2 diabetes mellitus with complication, without long-term current use of insulin Conclusion/Plan: 12/23 her morning glucose is 177, add Lantus 5 units, continue slide scan continue slide scale and hypoglycemia and glucose check. pt's A1c is 7.7%. (4) CAD (coronary artery disease) Conclusion/Plan: stable, ontinue home medication Cozaar, metoprolol, Lipitor. Had vehicle monitor technician. continue eliquis. History of bypass surgery in the past, recent stent. Is been a year so she is no longer on Plavix according to her. Troponin was checked in the ER and normal. She will be continued on a statin, aspirin, metoprolol. (5) Chronic atrial fibrillation Conclusion/Plan: HR is stable, continue Eliquis, And metoprolol and the vehicle monitor technician - Current Meds Current Meds: Current Medications Generic Name Dose Route Start Last Admin Trade Name Freq PRN Reason Stop Dose Admin Acetaminophen 650 mg 12/20/21 16:05 12/21/21 10:18 Acetaminophen 325 Mg Tablet PO 650 mg Q4HR PRN Administration Pain 1 to 4 Amlodipine Besylate 10 mg 12/21/21 09:00 12/22/21 10:38 Amlodipine 5 Mg Tablet PO 10 mg DAILY [facility] Administration Apixaban 5 mg 12/21/21 21:00 12/23/21 08:26 Apixaban 5 Mg Tablet PO 5 mg BID [facility] Administration Atorvastatin Calcium 40 mg 12/22/21 21:00 12/22/21 21:22 Atorvastatin 40 Mg Tablet PO 40 mg QPM [facility] Administration Ferrous Sulfate 325 mg 12/22/21 10:00 12/22/21 17:51 Ferrous Sulfate 325 Mg Tablet PO 325 mg DAILYWM [facility] Administration Furosemide 20 mg 12/21/21 06:00 12/23/21 06:27 Furosemide 20 Mg/2 Ml Vial IVP 20 mg BIDDIURETIC [facility] Administration Insulin Aspart 3 - 11 unit 12/22/21 21:00 12/23/21 08:27 Insulin Aspart 300 Unit/3 Ml Pen SUBQ 3 unit 0800,1200,1700,2100 [facility] Administration Protocol Losartan Potassium 100 mg 12/21/21 09:00 12/22/21 10:08 Losartan 50 Mg Tablet PO 100 mg DAILY [facility] Administration Metoprolol Tartrate 100 mg 12/20/21 21:00 12/23/21 08:25 Metoprolol Tartrate 50 Mg Tablet PO 100 mg BID [facility] Administration Mineral Oil 1 applic 12/20/21 18:23 12/22/21 08:50 Min Oil/Dimethicon/Coconut Oil 92 Gm Tube TOP 1 applic PRN PRN Administration Skin Care Nystatin 1 applic 12/20/21 21:00 12/23/21 08:26 Nystatin Powder 15 Gm TOP 1 applic BID [facility] Administration Ondansetron HCl 4 mg 12/20/21 16:05 12/22/21 21:26 Ondansetron Odt 4 Mg Tablet TL 4 mg Q6HR PRN Administration Nausea / Vomiting Ondansetron HCl 4 mg 12/20/21 16:05 12/21/21 09:24 Ondansetron 4 Mg/2 Ml Vial IVP 4 mg Q6HR PRN Administration Nausea / Vomiting Oxycodone HCl 5 mg 12/20/21 16:05 12/21/21 16:21 Oxycodone 5 Mg Tablet PO 5 mg Q4HR PRN Administration Pain 5 to 7 Pantoprazole Sodium 40 mg 12/22/21 08:00 12/23/21 06:27 Pantoprazole 40 Mg Tablet PO 40 mg QDAC [facility] Administration Potassium Chloride 20 meq 12/20/21 17:00 12/22/21 17:51 Potassium Chloride 20 Meq Tablet PO 20 meq DAILYWM [facility] Administration Pregabalin 50 mg 12/22/21 21:00 12/22/21 21:21 Pregabalin 25 Mg Capsule PO 50 mg QPM [facility] Administration Pregabalin 25 mg 12/22/21 09:00 12/22/21 10:51 Pregabalin 25 Mg Capsule PO 25 mg DAILY [facility] Administration Sodium Chloride 10 ml 12/20/21 16:05 12/23/21 06:27 Sodium Chloride Flush 0.9% 10 Ml Syringe IVP 10 ml PRN PRN Administration NEEDED PER PROVIDER ORDERS Sodium Chloride 10 ml 12/20/21 17:00 12/23/21 08:38 Sodium Chloride Flush 0.9% 10 Ml Syringe IVP 10 ml 0100,0900,1700 [facility] Administration - Lab Result Fish Bone Diagrams: 12/23/21 05:26 12/23/21 05:26 - Additional Planning My Orders: My Active Orders 12/22/21 09:00 Pregabalin [Lyrica] 25 mg PO DAILY 12/22/21 10:00 Ferrous Sulfate [Feosol] 325 mg PO DAILYWM 12/22/21 10:42 Out of bed 3+ hours today [RC] TID 12/22/21 13:23 Telemetry- [RC] Q4HR 12/22/21 21:00 Atorvastatin [Lipitor] 40 mg PO QPM Pregabalin [Lyrica] 50 mg PO QPM 12/23/21 07:57 Fluid Restriction [RC] ONCE 12/23/21 07:58 Daily Weight [RC] 0600 12/24/21 05:00 BMP - BASIC METABOLIC PANEL [CHEM] DAILYLAB BNP - B-NATRIURETIC PEPTIDE [IAI] DAILYLAB CBC - COMP BLD CT W/AUTO DIFF [HEME] DAILYLAB 12/25/21 05:00 BMP - BASIC METABOLIC PANEL [CHEM] DAILYLAB BNP - B-NATRIURETIC PEPTIDE [IAI] DAILYLAB CBC - COMP BLD CT W/AUTO DIFF [HEME] DAILYLAB 12/26/21 05:00 BMP - BASIC METABOLIC PANEL [CHEM] DAILYLAB BNP - B-NATRIURETIC PEPTIDE [IAI] DAILYLAB CBC - COMP BLD CT W/AUTO DIFF [HEME] DAILYLAB 12/27/21 05:00 BMP - BASIC METABOLIC PANEL [CHEM] DAILYLAB BNP - B-NATRIURETIC PEPTIDE [IAI] DAILYLAB CBC - COMP BLD CT W/AUTO DIFF [HEME] DAILYLAB 12/28/21 05:00 BMP - BASIC METABOLIC PANEL [CHEM] DAILYLAB BNP - B-NATRIURETIC PEPTIDE [IAI] DAILYLAB CBC - COMP BLD CT W/AUTO DIFF [HEME] DAILYLAB Subjective - Subjective Patient Reports: Resting Comfortably, No Complaints Objective Vital Signs: Vital Signs - 24 hr 12/22/21 12/22/21 12/22/21 12:05 12:07 12:09 Temperature 36.7 C Heart Rate [ 91 Brachial] Heart Rate [ Monitoring electrodes] Respiratory 20 20 18 Rate Blood Pressure Blood Pressure 144/74 H [Right Brachial artery] O2 Saturation 83 L 93 95 12/22/21 12/22/21 12/22/21 14:45 16:17 20:33 Temperature 36.7 C 37.0 C Heart Rate [ 67 Brachial] Heart Rate [ 91 89 Monitoring electrodes] Respiratory 19 16 Rate Blood Pressure Blood Pressure 149/73 H 144/81 H 152/51 H [Right Brachial artery] O2 Saturation 95 95 12/22/21 12/22/21 12/22/21 21:19 21:21 23:45 Temperature 36.6 C Heart Rate [ Brachial] Heart Rate [ 71 Monitoring electrodes] Respiratory 18 18 Rate Blood Pressure 152/51 H Blood Pressure 136/72 H [Right Brachial artery] O2 Saturation 92 96 12/23/21 12/23/21 12/23/21 05:20 07:31 08:25 Temperature 36.7 C 36.7 C Heart Rate [ 70 81 Brachial] Heart Rate [ Monitoring electrodes] Respiratory 18 18 Rate Blood Pressure 152/65 H Blood Pressure 145/48 H 152/65 H [Right Brachial artery] O2 Saturation 90 L 92 Oxygen O2 Source Nasal cannula Oxygen Flow Rate 4 I&O (Last 24 Hrs): Intake and Output Totals x24h 12/21/21 12/22/21 12/23/21 23:59 23:59 23:59 Intake Total 807 700 128 Output Total 425 225 Balance 382 475 128 General: Alert, Oriented x3, Cooperative, No acute distress HEENT: Atraumatic Neck: Supple Lymphatic: no adenopathy Neuro: Alert, Non Focal, Oriented Times 3 Cardiovascular: Regular rate, Normal S1, Normal S2 Respiratory: Chest non-tender, No respiratory distress Extremities: Normal pulses - Results Results: Laboratory Results WBC 7.9 x10^3/uL (4.8-10.8) 12/23/21 05:26 RBC 3.48 10^6/uL (4.20-5.40) L 12/23/21 05:26 Hgb 10.1 g/dL (12.0-16.0) L 12/23/21 05:26 Hct 30.8 % (37.0-47.0) L 12/23/21 05:26 MCV 88.5 fL (81.0-99.0) 12/23/21 05:26 MCH 29.0 pg (27.0-31.0) 12/23/21 05:26 MCHC 32.8 g/dL (32.0-36.0) 12/23/21 05:26 RDW 16.6 % (12.0-15.0) H 12/23/21 05:26 Plt Count 301 10^3/uL (130-450) 12/23/21 05:26 MPV 9.8 fL (7.9-10.8) 12/23/21 05:26 Reticulocyte % (Auto) 1.92 % (0.5-2.3) 12/22/21 05:41 Neut # (Auto) 5.9 10^3/uL (1.5-6.6) 12/23/21 05:26 Lymph # (Auto) 1.1 10^3/uL (1.5-3.5) L 12/23/21 05:26 Rains # (Auto) 0.7 10^3/uL (0.0-1.0) 12/23/21 05:26 Eos # (Auto) 0.3 10^3/uL (0.0-0.7) 12/23/21 05:26 Baso # (Auto) 0.0 10^3/uL (0.0-0.1) 12/23/21 05:26 Absolute Nucleated RBC 0.00 x10^3/uL 12/23/21 05:26 Nucleated RBC % 0.0 /100WBC 12/23/21 05:26 Absolute Retic 0.066 10^6/uL (0.020-0.110) 12/22/21 05:41 PT 14.0 secs (9.9-12.6) H 12/20/21 14:23 INR 1.3 (0.8-1.2) H 12/20/21 14:23 Sodium 137 mmol/L (135-145) 12/23/21 05:26 Potassium 3.6 mmol/L (3.5-5.0) 12/23/21 05:26 Chloride 99 mmol/L (101-111) L 12/23/21 05:26 Carbon Dioxide 28 mmol/L (21-32) 12/23/21 05:26 Anion Gap 10.0 (6-13) 12/23/21 05:26 BUN 20 mg/dL (6-20) 12/23/21 05:26 Creatinine 1.0 mg/dL (0.4-1.0) 12/23/21 05:26 Estimated GFR (MDRD) 53 (>89) L 12/23/21 05:26 Glucose 177 mg/dL (70-100) H 12/23/21 05:26 Estimat Average Glucose 174 mg/dL (70-100) H 12/21/21 05:27 Hemoglobin A1c % 7.7 % (4.27-6.07) H 12/21/21 05:27 Calcium 8.4 mg/dL (8.5-10.3) L 12/23/21 05:26 Iron 26 ug/dL (28-170) L 12/22/21 05:41 TIBC 328 ug/dL (250-450) 12/22/21 05:41 % Saturation 8 % (20-50) L 12/22/21 05:41 Transferrin 234 mg/dL (192-382) 12/22/21 05:41 Ferritin 24.3 ng/mL (11.0-306.8) 12/22/21 05:41 Total Bilirubin 1.4 mg/dL (0.2-1.0) H 12/20/21 14:23 AST 17 IU/L (10-42) 12/20/21 14:23 ALT 17 IU/L (10-60) 12/20/21 14:23 Alkaline Phosphatase 76 IU/L (42-121) 12/20/21 14:23 Lactate Dehydrogenase 124 IU/L (91-225) 12/22/21 05:41 Troponin I High Sens 10.7 ng/L (2.3-14.8) 12/20/21 14:23 B-Natriuretic Peptide 900 pg/mL (5-100) H 12/23/21 05:26 Total Protein 7.5 g/dL (6.7-8.2) 12/20/21 14:23 Albumin 3.8 g/dL (3.2-5.5) 12/20/21 14:23 Globulin 3.7 g/dL (2.1-4.2) 12/20/21 14:23 Albumin/Globulin Ratio 1.0 (1.0-2.2) 12/20/21 14:23 Lipase 29 U/L (22-51) 12/20/21 14:23 Vitamin B12 676 pg/mL (180-914) 12/22/21 05:41 Nasal Adenovirus (PCR) NOT DETECTED 12/20/21 16:24 Nasal B. parapertussis DNA (PCR) NOT DETECTED 12/20/21 16:24 Nasal Coronavir 229E PCR NOT DETECTED 12/20/21 16:24 Nasal Coronavir HKU1 PCR NOT DETECTED 12/20/21 16:24 Nasal Coronavir NL63 PCR NOT DETECTED 12/20/21 16:24 Nasal Coronavir OC43 PCR NOT DETECTED 12/20/21 16:24 Nasal Enterovir/Rhinovir PCR NOT DETECTED 12/20/21 16:24 Nasal Influenza B PCR NOT DETECTED 12/20/21 16:24 Nasal Influenza A PCR NOT DETECTED 12/20/21 16:24 Nasal Parainfluen 1 PCR NOT DETECTED 12/20/21 16:24 Nasal Parainfluen 2 PCR NOT DETECTED 12/20/21 16:24 Nasal Parainfluen 3 PCR NOT DETECTED 12/20/21 16:24 Nasal Parainfluen 4 PCR NOT DETECTED 12/20/21 16:24 Nasal RSV (PCR) NOT DETECTED 12/20/21 16:24 Nasal B.pertussis DNA PCR NOT DETECTED 12/20/21 16:24 Nasal C.pneumoniae (PCR) NOT DETECTED 12/20/21 16:24 Christiano Human Metapneumo PCR NOT DETECTED 12/20/21 16:24 Nasal M.pneumoniae (PCR) NOT DETECTED 12/20/21 16:24 Nasal SARS-CoV-2 (PCR) NOT DETECTED 12/20/21 16:24 - Procedures Procedures: Procedures CATARAC PHACOEMULS/ASPIR (09/19/14) INSERT LENS AT CATAR EXT (09/19/14) ABX Reporting Has patient been on IV antibiotics over the past 48 hours?: No Current Medications - Current Medications Current Medications: Active Medications Acetaminophen (Acetaminophen 325 Mg Tablet) 650 mg PO Q4HR PRN PRN Reason: Pain 1 to 4 Last Admin: 12/21/21 10:18 Dose: 650 mg Amlodipine Besylate (Amlodipine 5 Mg Tablet) 10 mg PO DAILY [facility] Last Admin: 12/22/21 10:38 Dose: 10 mg Apixaban (Apixaban 5 Mg Tablet) 5 mg PO BID [facility] Last Admin: 12/23/21 08:26 Dose: 5 mg Atorvastatin Calcium (Atorvastatin 40 Mg Tablet) 40 mg PO QPM [facility] Last Admin: 12/22/21 21:22 Dose: 40 mg Ferrous Sulfate (Ferrous Sulfate 325 Mg Tablet) 325 mg PO DAILYWM [facility] Last Admin: 12/22/21 17:51 Dose: 325 mg Furosemide (Furosemide 20 Mg/2 Ml Vial) 20 mg IVP BIDDIURETIC [facility] Last Admin: 12/23/21 06:27 Dose: 20 mg Insulin Aspart (Insulin Aspart 300 Unit/3 Ml Pen) 3 - 11 unit SUBQ 0800,1200,1700,2100 [facility]; Protocol Last Admin: 12/23/21 08:27 Dose: 3 unit Insulin Glargine (Insulin Glargine 300 Unit/3 Ml Pen) 5 unit SUBQ QDBREAKFAST S [facility] Losartan Potassium (Losartan 50 Mg Tablet) 100 mg PO DAILY [facility] Last Admin: 12/22/21 10:08 Dose: 100 mg Metoprolol Tartrate (Metoprolol Tartrate 50 Mg Tablet) 100 mg PO BID [facility] Last Admin: 12/23/21 08:25 Dose: 100 mg Mineral Oil (Min Oil/Dimethicon/Coconut Oil 92 Gm Tube) 1 applic TOP PRN PRN PRN Reason: Skin Care Last Admin: 12/22/21 08:50 Dose: 1 applic Nystatin (Nystatin Powder 15 Gm) 1 applic TOP BID [facility] Last Admin: 12/23/21 08:26 Dose: 1 applic Ondansetron HCl (Ondansetron Odt 4 Mg Tablet) 4 mg TL Q6HR PRN PRN Reason: Nausea / Vomiting Last Admin: 12/22/21 21:26 Dose: 4 mg Ondansetron HCl (Ondansetron 4 Mg/2 Ml Vial) 4 mg IVP Q6HR PRN PRN Reason: Nausea / Vomiting Last Admin: 12/21/21 09:24 Dose: 4 mg Oxycodone HCl (Oxycodone 5 Mg Tablet) 5 mg PO Q4HR PRN PRN Reason: Pain 5 to 7 Last Admin: 12/21/21 16:21 Dose: 5 mg Pantoprazole Sodium (Pantoprazole 40 Mg Tablet) 40 mg PO QDAC [facility] Last Admin: 12/23/21 06:27 Dose: 40 mg Polyethylene Glycol (Polyethylene Glycol 3350 17 Gm Packet) 17 gm PO DAILY [facility] Potassium Chloride (Potassium Chloride 20 Meq Tablet) 20 meq PO DAILYWM [facility] Last Admin: 12/22/21 17:51 Dose: 20 meq Pregabalin (Pregabalin 25 Mg Capsule) 50 mg PO QPM [facility] Last Admin: 12/22/21 21:21 Dose: 50 mg Pregabalin (Pregabalin 25 Mg Capsule) 25 mg PO DAILY [facility] Last Admin: 12/22/21 10:51 Dose: 25 mg Sodium Chloride (Sodium Chloride Flush 0.9% 10 Ml Syringe) 10 ml IVP PRN PRN PRN Reason: NEEDED PER PROVIDER ORDERS Last Admin: 12/23/21 06:27 Dose: 10 ml Sodium Chloride (Sodium Chloride Flush 0.9% 10 Ml Syringe) 10 ml IVP 0100,0900,1700 [facility] Last Admin: 12/23/21 08:38 Dose: 10 ml Metformin HCl 1,000 mg PO BIDWM 04/21/14 Metoprolol Tartrate 100 mg PO BID 04/21/14 Insulin Glargine [Lantus] 25 unit SUBQ DAILY 09/04/14 Aspirin [Aspir 81] 81 mg PO DAILY 09/19/14 Losartan [Cozaar] 100 mg PO DAILY 09/19/14 Pregabalin [Lyrica] 50 mg PO QPM 09/19/14 Atorvastatin Calcium [Lipitor] 40 mg PO QPM 12/31/14 Insulin Lispro [Humalog] 6 units SQ TIDWM 12/31/14 Cyanocobalamin (Vitamin B-12) [Vitamin B-12 (100mcg tab)] 1,000 mcg PO DAILY 05/09/19 Clopidogrel [Plavix] 75 mg PO DAILY 04/06/21 amLODIPine [Norvasc] 10 mg PO DAILY 04/06/21 Meloxicam [Mobic] 15 mg PO DAILY PRN 12/21/21 Pregabalin [Lyrica] 25 mg PO DAILY 12/21/21 Solifenacin Succinate [Vesicare] 5 mg PO DAILY 12/21/21
[2021-12-23] MEDS: amLODIPine 5 MG TABLET PO SCH (10:47)
[2021-12-23] MEDS: LOSARTAN 50 MG TABLET PO SCH (10:48)
[2021-12-23] MEDS: PREGABALIN 25 MG CAPSULE PO SCH ×2 (11:42→20:44)
[2021-12-23] MEDS: FERROUS SULFATE 325 MG TABLET PO SCH (11:42)
[2021-12-23] MEDS: polyethylene glycoL 3350 17 GM PACKET PO SCH (11:42)
[2021-12-23] MEDS: POTASSIUM CHLORIDE 20 MEQ TABLET PO SCH (11:42)
[2021-12-23] MEDS: INSULIN GLARGINE 300 UNIT/3 ML PEN SUBQ SCH (11:42)
[2021-12-23] MEDS: ATORVASTATIN 40 MG TABLET PO SCH (20:43)
[2021-12-24] MEDS: SODIUM CHLORIDE FLUSH 0.9% 10 ML SYRINGE IVP SCH ×3 (01:01→13:58)
[2021-12-24 05:52] LABS: BASOPHILS % (AUTO) 0.4 %; EOSINOPHILS # (AUTO) 0.3 10^3/uL (0.0-0.7); HCT - HEMATOCRIT 30.7 % (37.0-47.0); HGB - HEMOGLOBIN 9.8 g/dL (12.0-16.0); LYMPHOCYTES # (AUTO) 1.1 10^3/uL (1.5-3.5); LYMPHOCYTES % (AUTO) 14.9 %; MEAN CORPUSCULAR HEMOGLOBIN 28.2 pg (27.0-31.0); MEAN CORPUSCULAR HGB CONC 31.9 g/dL (32.0-36.0); MEAN CORPUSCULAR VOLUME 88.5 fL (81.0-99.0); MEAN PLATELET VOLUME 9.7 fL (7.9-10.8); MONOCYTES # (AUTO) 0.7 10^3/uL (0.0-1.0); MONOCYTES % (AUTO) 9.8 %; NEUTROPHILS % (AUTO) 70.6 %; PLT - PLATELET COUNT 305 10^3/uL (130-450); RED BLOOD COUNT 3.47 10^6/uL (4.20-5.40); RED CELL DISTRIBUTION WIDTH 16.7 % (12.0-15.0); WHITE BLOOD COUNT 7.1 x10^3/uL (4.8-10.8)
[2021-12-24 06:03] LABS: CALCIUM 8.6 mg/dL (8.5-10.3); POTASSIUM 3.7 mmol/L (3.5-5.0)
[2021-12-24] MEDS: FUROSEMIDE 20 MG/2 ML VIAL IVP SCH ×2 (06:30→13:58)
[2021-12-24] MEDS: PANTOPRAZOLE 40 MG TABLET PO SCH (06:30)
[2021-12-24] MEDS: polyethylene glycoL 3350 17 GM PACKET PO SCH (09:07)
[2021-12-24] MEDS: LOSARTAN 50 MG TABLET PO SCH (09:08)
[2021-12-24] MEDS: FERROUS SULFATE 325 MG TABLET PO SCH (09:09)
[2021-12-24] MEDS: PREGABALIN 25 MG CAPSULE PO SCH ×2 (09:09→20:30)
[2021-12-24] MEDS: amLODIPine 5 MG TABLET PO SCH (09:10)
[2021-12-24] MEDS: APIXABAN 5 MG TABLET PO SCH ×2 (09:10→20:29)
[2021-12-24] MEDS: POTASSIUM CHLORIDE 20 MEQ TABLET PO SCH (09:13)
[2021-12-24] MEDS: INSULIN ASPART 300 UNIT/3 ML PEN SUBQ SCH ×4 (09:14→20:29)
[2021-12-24] MEDS: INSULIN GLARGINE 300 UNIT/3 ML PEN SUBQ SCH (09:15)
[2021-12-24] MEDS: NYSTATIN POWDER 15 GM TOP SCH ×2 (09:20→20:30)
--- NOTE | 2021-12-24 13:16 | PROVIDER PROGRESS NOTE ---
Assessment/Plan - Problem List (1) Bradycardia Assessment/Plan: 12/24 Patient has HR at 40, and pause gradually extended into 2.09 second. it is likely pt took too much Metoprolol. Hold today morning Metoprolol, reduce to Metoprolol succinate to 50mg daily from Metoprolol Tartrate 100mg bid, continue tele closely monitor (2) exacerbation of CHF (congestive heart failure) Assessment/Plan: 12/24 improved, BNP is reduced, pt is comfortable resting at bed. pt has 93% Oxygen saturation on 1 L of oxygen. Continue Lasix, continue fluids restriction, continue daily weight. 12/23 Patient still need 1 L oxygen and had 92% O2 saturation. BNP is slightly elevated. plan: continue IV of Lasix, fluid restrict, daily weight, I&Os, lab monitor, vital monitor closely. 12/22 She feels her breathing is better. Patient had a 95% oxygen saturation on 2 L of oxygen. BNP is reduced significantly. Continue intravenous Lasix. Continue home medication Cozaar, metoprolol, Lipitor. Had security monitor for patient's history of A fibrillation and CHF (3) Memory loss Conclusion/Plan: stable, Mainly manifested as vague history. (4) Type 2 diabetes mellitus with complication, without long-term current use of insulin Conclusion/Plan: 12/23 her morning glucose is 177, add Lantus 5 units, continue slide scan continue slide scale and hypoglycemia and glucose check. pt's A1c is 7.7%. (5) CAD (coronary artery disease) Conclusion/Plan: stable, ontinue home medication Cozaar, metoprolol, Lipitor. Had security monitor. continue eliquis. History of bypass surgery in the past, recent stent. Is been a year so she is no longer on Plavix according to her. Troponin was checked in the ER and normal. She will be continued on a statin, aspirin, metoprolol. (6) Chronic atrial fibrillation Conclusion/Plan: HR is stable, continue Eliquis, And metoprolol and the security monitor - Current Meds Current Meds: Current Medications Generic Name Dose Route Start Last Admin Trade Name Freq PRN Reason Stop Dose Admin Acetaminophen 650 mg 12/20/21 16:05 12/21/21 10:18 Acetaminophen 325 Mg Tablet PO 650 mg Q4HR PRN Administration Pain 1 to 4 Amlodipine Besylate 10 mg 12/21/21 09:00 12/24/21 09:10 Amlodipine 5 Mg Tablet PO 10 mg DAILY [facility] Administration Apixaban 5 mg 12/21/21 21:00 12/24/21 09:10 Apixaban 5 Mg Tablet PO 5 mg BID [facility] Administration Atorvastatin Calcium 40 mg 12/22/21 21:00 12/23/21 20:43 Atorvastatin 40 Mg Tablet PO 40 mg QPM [facility] Administration Ferrous Sulfate 325 mg 12/22/21 10:00 12/24/21 09:09 Ferrous Sulfate 325 Mg Tablet PO 325 mg DAILYWM [facility] Administration Furosemide 20 mg 12/21/21 06:00 12/24/21 06:30 Furosemide 20 Mg/2 Ml Vial IVP 20 mg BIDDIURETIC [facility] Administration Insulin Aspart 3 - 11 unit 12/22/21 21:00 12/24/21 12:21 Insulin Aspart 300 Unit/3 Ml Pen SUBQ 11 unit 0800,1200,1700,2100 [facility] Administration Protocol Insulin Glargine 5 unit 12/23/21 10:00 12/24/21 09:15 Insulin Glargine 300 Unit/3 Ml Pen SUBQ 5 unit QDBREAKFAST [facility] Administration Losartan Potassium 100 mg 12/21/21 09:00 12/24/21 09:08 Losartan 50 Mg Tablet PO 100 mg DAILY [facility] Administration Mineral Oil 1 applic 12/20/21 18:23 12/22/21 08:50 Min Oil/Dimethicon/Coconut Oil 92 Gm Tube TOP 1 applic PRN PRN Administration Skin Care Nystatin 1 applic 12/20/21 21:00 12/24/21 09:20 Nystatin Powder 15 Gm TOP 1 applic BID [facility] Administration Ondansetron HCl 4 mg 12/20/21 16:05 12/22/21 21:26 Ondansetron Odt 4 Mg Tablet TL 4 mg Q6HR PRN Administration Nausea / Vomiting Ondansetron HCl 4 mg 12/20/21 16:05 12/21/21 09:24 Ondansetron 4 Mg/2 Ml Vial IVP 4 mg Q6HR PRN Administration Nausea / Vomiting Oxycodone HCl 5 mg 12/20/21 16:05 12/21/21 16:21 Oxycodone 5 Mg Tablet PO 5 mg Q4HR PRN Administration Pain 5 to 7 Pantoprazole Sodium 40 mg 12/22/21 08:00 12/24/21 06:30 Pantoprazole 40 Mg Tablet PO 40 mg QDAC [facility] Administration Polyethylene Glycol 17 gm 12/23/21 09:00 12/24/21 09:07 Polyethylene Glycol 3350 17 Gm Packet PO 17 gm DAILY [facility] Administration Potassium Chloride 20 meq 12/20/21 17:00 12/24/21 09:13 Potassium Chloride 20 Meq Tablet PO 20 meq DAILYWM [facility] Administration Pregabalin 50 mg 12/22/21 21:00 12/23/21 20:44 Pregabalin 25 Mg Capsule PO 50 mg QPM [facility] Administration Pregabalin 25 mg 12/22/21 09:00 12/24/21 09:09 Pregabalin 25 Mg Capsule PO 25 mg DAILY [facility] Administration Sodium Chloride 10 ml 12/20/21 16:05 12/23/21 06:27 Sodium Chloride Flush 0.9% 10 Ml Syringe IVP 10 ml PRN PRN Administration NEEDED PER PROVIDER ORDERS Sodium Chloride 10 ml 12/20/21 17:00 12/24/21 09:19 Sodium Chloride Flush 0.9% 10 Ml Syringe IVP 10 ml 0100,0900,1700 [facility] Administration - Lab Result Fish Bone Diagrams: 12/24/21 05:35 12/24/21 05:35 - Additional Planning My Orders: My Active Orders 12/24/21 19:00 Metoprolol Succinate [Toprol Xl] 50 mg PO DAILY 12/25/21 05:00 BMP - BASIC METABOLIC PANEL [CHEM] DAILYLAB BNP - B-NATRIURETIC PEPTIDE [IAI] DAILYLAB CBC - COMP BLD CT W/AUTO DIFF [HEME] DAILYLAB 12/26/21 05:00 BMP - BASIC METABOLIC PANEL [CHEM] DAILYLAB BNP - B-NATRIURETIC PEPTIDE [IAI] DAILYLAB CBC - COMP BLD CT W/AUTO DIFF [HEME] DAILYLAB 12/27/21 05:00 BMP - BASIC METABOLIC PANEL [CHEM] DAILYLAB BNP - B-NATRIURETIC PEPTIDE [IAI] DAILYLAB CBC - COMP BLD CT W/AUTO DIFF [HEME] DAILYLAB 12/28/21 05:00 BMP - BASIC METABOLIC PANEL [CHEM] DAILYLAB BNP - B-NATRIURETIC PEPTIDE [IAI] DAILYLAB CBC - COMP BLD CT W/AUTO DIFF [HEME] DAILYLAB Subjective - Subjective Patient Reports: Resting Comfortably Objective Vital Signs: Vital Signs - 24 hr 02/08/0512/23/21 12/23/21 13:59 16:01 20:43 Temperature 36.4 C L 36.7 C Heart Rate [ 56 L Brachial] Heart Rate [ 72 Monitoring electrodes] Respiratory 20 18 Rate Blood Pressure 135/58 H Blood Pressure 125/61 131/76 H [Right Brachial artery] O2 Saturation 96 98 12/23/21 12/23/21 12/24/21 21:00 23:29 06:40 Temperature 36.7 C 36.8 C 36.7 C Heart Rate [ 72 Brachial] Heart Rate [ 119 H 81 Monitoring electrodes] Respiratory 18 16 14 Rate Blood Pressure Blood Pressure 135/58 H 136/64 H 141/65 H [Right Brachial artery] O2 Saturation 94 93 91 L 12/24/21 11:55 Temperature 36.5 C Heart Rate [ 75 Brachial] Heart Rate [ Monitoring electrodes] Respiratory 16 Rate Blood Pressure Blood Pressure 147/50 H [Right Brachial artery] O2 Saturation 93 Oxygen O2 Source Nasal cannula Oxygen Flow Rate 4 I&O (Last 24 Hrs): Intake and Output Totals x24h 12/22/21 12/23/21 12/24/21 23:59 23:59 23:59 Intake Total 700 838 788 Output Total 225 200 650 Balance 475 638 138 General: Alert, Oriented x3, Cooperative, No acute distress HEENT: Atraumatic Neck: Supple Lymphatic: no adenopathy Neuro: Alert, Non Focal, Oriented Times 3 Cardiovascular: Regular rate, Normal S1, Normal S2 Respiratory: Chest non-tender, No respiratory distress Abdomen: Normal bowel sounds, Soft Extremities: Normal pulses - Results Results: Laboratory Results WBC 7.1 x10^3/uL (4.8-10.8) 12/24/21 05:35 RBC 3.47 10^6/uL (4.20-5.40) L 12/24/21 05:35 Hgb 9.8 g/dL (12.0-16.0) L 12/24/21 05:35 Hct 30.7 % (37.0-47.0) L 12/24/21 05:35 MCV 88.5 fL (81.0-99.0) 12/24/21 05:35 MCH 28.2 pg (27.0-31.0) 12/24/21 05:35 MCHC 31.9 g/dL (32.0-36.0) L 12/24/21 05:35 RDW 16.7 % (12.0-15.0) H 12/24/21 05:35 Plt Count 305 10^3/uL (130-450) 12/24/21 05:35 MPV 9.7 fL (7.9-10.8) 12/24/21 05:35 Reticulocyte % (Auto) 1.92 % (0.5-2.3) 12/22/21 05:41 Neut # (Auto) 5.0 10^3/uL (1.5-6.6) 12/24/21 05:35 Lymph # (Auto) 1.1 10^3/uL (1.5-3.5) L 12/24/21 05:35 [place] # (Auto) 0.7 10^3/uL (0.0-1.0) 12/24/21 05:35 Eos # (Auto) 0.3 10^3/uL (0.0-0.7) 12/24/21 05:35 Baso # (Auto) 0.0 10^3/uL (0.0-0.1) 12/24/21 05:35 Absolute Nucleated RBC 0.00 x10^3/uL 12/24/21 05:35 Nucleated RBC % 0.0 /100WBC 12/24/21 05:35 Absolute Retic 0.066 10^6/uL (0.020-0.110) 12/22/21 05:41 PT 14.0 secs (9.9-12.6) H 12/20/21 14:23 INR 1.3 (0.8-1.2) H 12/20/21 14:23 Sodium 139 mmol/L (135-145) 12/24/21 05:35 Potassium 3.7 mmol/L (3.5-5.0) 12/24/21 05:35 Chloride 100 mmol/L (101-111) L 12/24/21 05:35 Carbon Dioxide 30 mmol/L (21-32) 12/24/21 05:35 Anion Gap 9.0 (6-13) 12/24/21 05:35 BUN 24 mg/dL (6-20) H 12/24/21 05:35 Creatinine 1.0 mg/dL (0.4-1.0) 12/24/21 05:35 Estimated GFR (MDRD) 53 (>89) L 12/24/21 05:35 Glucose 175 mg/dL (70-100) H 12/24/21 05:35 Estimat Average Glucose 174 mg/dL (70-100) H 12/21/21 05:27 Hemoglobin A1c % 7.7 % (4.27-6.07) H 12/21/21 05:27 Calcium 8.6 mg/dL (8.5-10.3) 12/24/21 05:35 Iron 26 ug/dL (28-170) L 12/22/21 05:41 TIBC 328 ug/dL (250-450) 12/22/21 05:41 % Saturation 8 % (20-50) L 12/22/21 05:41 Transferrin 234 mg/dL (192-382) 12/22/21 05:41 Ferritin 24.3 ng/mL (11.0-306.8) 12/22/21 05:41 Total Bilirubin 1.4 mg/dL (0.2-1.0) H 12/20/21 14:23 AST 17 IU/L (10-42) 12/20/21 14:23 ALT 17 IU/L (10-60) 12/20/21 14:23 Alkaline Phosphatase 76 IU/L (42-121) 12/20/21 14:23 Lactate Dehydrogenase 124 IU/L (91-225) 12/22/21 05:41 Troponin I High Sens 10.7 ng/L (2.3-14.8) 12/20/21 14:23 B-Natriuretic Peptide 774 pg/mL (5-100) H 12/24/21 05:35 Total Protein 7.5 g/dL (6.7-8.2) 12/20/21 14:23 Albumin 3.8 g/dL (3.2-5.5) 12/20/21 14:23 Globulin 3.7 g/dL (2.1-4.2) 12/20/21 14:23 Albumin/Globulin Ratio 1.0 (1.0-2.2) 12/20/21 14:23 Lipase 29 U/L (22-51) 12/20/21 14:23 Vitamin B12 676 pg/mL (180-914) 12/22/21 05:41 Nasal Adenovirus (PCR) NOT DETECTED 12/20/21 16:24 Nasal B. parapertussis DNA (PCR) NOT DETECTED 12/20/21 16:24 Nasal Coronavir 229E PCR NOT DETECTED 12/20/21 16:24 Nasal Coronavir HKU1 PCR NOT DETECTED 12/20/21 16:24 Nasal Coronavir NL63 PCR NOT DETECTED 12/20/21 16:24 Nasal Coronavir OC43 PCR NOT DETECTED 12/20/21 16:24 Nasal Enterovir/Rhinovir PCR NOT DETECTED 12/20/21 16:24 Nasal Influenza B PCR NOT DETECTED 12/20/21 16:24 Nasal Influenza A PCR NOT DETECTED 12/20/21 16:24 Nasal Parainfluen 1 PCR NOT DETECTED 12/20/21 16:24 Nasal Parainfluen 2 PCR NOT DETECTED 12/20/21 16:24 Nasal Parainfluen 3 PCR NOT DETECTED 12/20/21 16:24 Nasal Parainfluen 4 PCR NOT DETECTED 12/20/21 16:24 Nasal RSV (PCR) NOT DETECTED 12/20/21 16:24 Nasal B.pertussis DNA PCR NOT DETECTED 12/20/21 16:24 Nasal C.pneumoniae (PCR) NOT DETECTED 12/20/21 16:24 Christiano Human Metapneumo PCR NOT DETECTED 12/20/21 16:24 Nasal M.pneumoniae (PCR) NOT DETECTED 12/20/21 16:24 Nasal SARS-CoV-2 (PCR) NOT DETECTED 12/20/21 16:24 - Procedures Procedures: Procedures CATARAC PHACOEMULS/ASPIR (09/19/14) INSERT LENS AT CATAR EXT (09/19/14) ABX Reporting Has patient been on IV antibiotics over the past 48 hours?: No Current Medications - Current Medications Current Medications: Active Medications Acetaminophen (Acetaminophen 325 Mg Tablet) 650 mg PO Q4HR PRN PRN Reason: Pain 1 to 4 Last Admin: 12/21/21 10:18 Dose: 650 mg Amlodipine Besylate (Amlodipine 5 Mg Tablet) 10 mg PO DAILY [facility] Last Admin: 12/24/21 09:10 Dose: 10 mg Apixaban (Apixaban 5 Mg Tablet) 5 mg PO BID [facility] Last Admin: 12/24/21 09:10 Dose: 5 mg Atorvastatin Calcium (Atorvastatin 40 Mg Tablet) 40 mg PO QPM [facility] Last Admin: 12/23/21 20:43 Dose: 40 mg Ferrous Sulfate (Ferrous Sulfate 325 Mg Tablet) 325 mg PO DAILYWM [facility] Last Admin: 12/24/21 09:09 Dose: 325 mg Furosemide (Furosemide 20 Mg/2 Ml Vial) 20 mg IVP BIDDIURETIC [facility] Last Admin: 12/24/21 06:30 Dose: 20 mg Insulin Aspart (Insulin Aspart 300 Unit/3 Ml Pen) 3 - 11 unit SUBQ 0800,1200,1700,2100 [facility]; Protocol Last Admin: 12/24/21 12:21 Dose: 11 unit Insulin Glargine (Insulin Glargine 300 Unit/3 Ml Pen) 5 unit SUBQ QDBREAKFAST [facility] Last Admin: 12/24/21 09:15 Dose: 5 unit Losartan Potassium (Losartan 50 Mg Tablet) 100 mg PO DAILY [facility] Last Admin: 12/24/21 09:08 Dose: 100 mg Metoprolol Succinate (Metoprolol Succinate 50 Mg Tablet) 50 mg PO DAILY [facility] Mineral Oil (Min Oil/Dimethicon/Coconut Oil 92 Gm Tube) 1 applic TOP PRN PRN PRN Reason: Skin Care Last Admin: 12/22/21 08:50 Dose: 1 applic Nystatin (Nystatin Powder 15 Gm) 1 applic TOP BID [facility] Last Admin: 12/24/21 09:20 Dose: 1 applic Ondansetron HCl (Ondansetron Odt 4 Mg Tablet) 4 mg TL Q6HR PRN PRN Reason: Nausea / Vomiting Last Admin: 12/22/21 21:26 Dose: 4 mg Ondansetron HCl (Ondansetron 4 Mg/2 Ml Vial) 4 mg IVP Q6HR PRN PRN Reason: Nausea / Vomiting Last Admin: 12/21/21 09:24 Dose: 4 mg Oxycodone HCl (Oxycodone 5 Mg Tablet) 5 mg PO Q4HR PRN PRN Reason: Pain 5 to 7 Last Admin: 12/21/21 16:21 Dose: 5 mg Pantoprazole Sodium (Pantoprazole 40 Mg Tablet) 40 mg PO QDAC [facility] Last Admin: 12/24/21 06:30 Dose: 40 mg Polyethylene Glycol (Polyethylene Glycol 3350 17 Gm Packet) 17 gm PO DAILY [facility] Last Admin: 12/24/21 09:07 Dose: 17 gm Potassium Chloride (Potassium Chloride 20 Meq Tablet) 20 meq PO DAILYWM [facility] Last Admin: 12/24/21 09:13 Dose: 20 meq Pregabalin (Pregabalin 25 Mg Capsule) 50 mg PO QPM [facility] Last Admin: 12/23/21 20:44 Dose: 50 mg Pregabalin (Pregabalin 25 Mg Capsule) 25 mg PO DAILY [facility] Last Admin: 12/24/21 09:09 Dose: 25 mg Sodium Chloride (Sodium Chloride Flush 0.9% 10 Ml Syringe) 10 ml IVP PRN PRN PRN Reason: NEEDED PER PROVIDER ORDERS Last Admin: 12/23/21 06:27 Dose: 10 ml Sodium Chloride (Sodium Chloride Flush 0.9% 10 Ml Syringe) 10 ml IVP 0100,0900,1700 [facility] Last Admin: 12/24/21 09:19 Dose: 10 ml Metformin HCl 1,000 mg PO BIDWM 04/21/14 Metoprolol Tartrate 100 mg PO BID 04/21/14 Insulin Glargine [Lantus] 25 unit SUBQ DAILY 09/04/14 Aspirin [Aspir 81] 81 mg PO DAILY 09/19/14 Losartan [Cozaar] 100 mg PO DAILY 09/19/14 Pregabalin [Lyrica] 50 mg PO QPM 09/19/14 Atorvastatin Calcium [Lipitor] 40 mg PO QPM 12/31/14 Insulin Lispro [Humalog] 6 units SQ TIDWM 12/31/14 Cyanocobalamin (Vitamin B-12) [Vitamin B-12 (100mcg tab)] 1,000 mcg PO DAILY 05/09/19 Clopidogrel [Plavix] 75 mg PO DAILY 04/06/21 amLODIPine [Norvasc] 10 mg PO DAILY 04/06/21 Meloxicam [Mobic] 15 mg PO DAILY PRN 12/21/21 Pregabalin [Lyrica] 25 mg PO DAILY 12/21/21 Solifenacin Succinate [Vesicare] 5 mg PO DAILY 12/21/21
[2021-12-24] MEDS: SENNA 8.6 MG TABLET PO SCH (17:13)
[2021-12-24] MEDS: DOCUSATE SODIUM 250 MG CAPSULE PO SCH (17:13)
[2021-12-24] MEDS ORDERED: METOPROLOL SUCCINATE 50 MG TABLET PO SCH (19:00)
[2021-12-24] MEDS: ATORVASTATIN 40 MG TABLET PO SCH (20:29)
[2021-12-25] MEDS: SODIUM CHLORIDE FLUSH 0.9% 10 ML SYRINGE IVP SCH ×3 (00:37→15:57)
[2021-12-25 05:56] LABS: BASOPHILS % (AUTO) 0.4 %; EOSINOPHILS # (AUTO) 0.2 10^3/uL (0.0-0.7); EOSINOPHILS % (AUTO) 2.7 %; HCT - HEMATOCRIT 32.9 % (37.0-47.0); HGB - HEMOGLOBIN 10.5 g/dL (12.0-16.0); LYMPHOCYTES # (AUTO) 1.1 10^3/uL (1.5-3.5); LYMPHOCYTES % (AUTO) 14.3 %; MEAN CORPUSCULAR HEMOGLOBIN 28.2 pg (27.0-31.0); MEAN CORPUSCULAR HGB CONC 31.9 g/dL (32.0-36.0); MEAN CORPUSCULAR VOLUME 88.4 fL (81.0-99.0); MEAN PLATELET VOLUME 9.5 fL (7.9-10.8); MONOCYTES # (AUTO) 0.8 10^3/uL (0.0-1.0); NEUTROPHILS # (AUTO) 5.4 10^3/uL (1.5-6.6); NEUTROPHILS % (AUTO) 71.2 %; PLT - PLATELET COUNT 315 10^3/uL (130-450); RED BLOOD COUNT 3.72 10^6/uL (4.20-5.40); RED CELL DISTRIBUTION WIDTH 16.7 % (12.0-15.0); WHITE BLOOD COUNT 7.6 x10^3/uL (4.8-10.8)
[2021-12-25] MEDS: PANTOPRAZOLE 40 MG TABLET PO SCH (06:00)
[2021-12-25] MEDS: FUROSEMIDE 20 MG/2 ML VIAL IVP SCH ×2 (06:00→13:40)
[2021-12-25 06:04] LABS: CALCIUM 8.9 mg/dL (8.5-10.3); POTASSIUM 3.5 mmol/L (3.5-5.0)
[2021-12-25] MEDS: polyethylene glycoL 3350 17 GM PACKET PO SCH (08:33)
[2021-12-25] MEDS: LOSARTAN 50 MG TABLET PO SCH (08:34)
[2021-12-25] MEDS: INSULIN GLARGINE 300 UNIT/3 ML PEN SUBQ SCH (08:34)
[2021-12-25] MEDS: INSULIN ASPART 300 UNIT/3 ML PEN SUBQ SCH ×4 (08:34→20:26)
[2021-12-25] MEDS: amLODIPine 5 MG TABLET PO SCH (08:36)
[2021-12-25] MEDS: SENNA 8.6 MG TABLET PO SCH (08:36)
[2021-12-25] MEDS: DOCUSATE SODIUM 250 MG CAPSULE PO SCH (08:37)
[2021-12-25] MEDS: METOPROLOL SUCCINATE 25 MG TABLET PO SCH (08:37)
[2021-12-25] MEDS: PREGABALIN 25 MG CAPSULE PO SCH ×2 (08:37→20:25)
[2021-12-25] MEDS: FERROUS SULFATE 325 MG TABLET PO SCH (08:38)
[2021-12-25] MEDS: APIXABAN 5 MG TABLET PO SCH ×2 (08:38→20:26)
[2021-12-25] MEDS: POTASSIUM CHLORIDE 20 MEQ TABLET PO SCH (08:39)
--- NOTE | 2021-12-25 11:00 | PROVIDER PROGRESS NOTE ---
Assessment/Plan - Problem List (1) Bradycardia Assessment/Plan: 12/25 pt's bradycaria is improved, the lowest HR is 58 on last night. But pt also present 3.22 second pause at her tele strip. plan: further reduce pt's home Metoprolol succinate to 25 mg daily, continue tele monitor. pt took 100mg metoprolol Tartrate bid at home. 12/24 Patient has HR at 40, and pause gradually extended into 2.09 second. it is likely pt took too much Metoprolol. Hold today morning Metoprolol, reduce to Metoprolol succinate to 50mg daily from Metoprolol Tartrate 100mg bid, continue tele closely monitor (2) exacerbation of CHF (congestive heart failure) Assessment/Plan: 12/25 improved, pt's BNP continue reduced, and pt feel her breath is better. pt had 91-97% O2 sat on one liter of O2, continue IV lasix and continue fluid restrict and daily weight, and I&Os. 12/24 improved, BNP is reduced, pt is comfortable resting at bed. pt has 93% Oxygen saturation on 1 L of oxygen. Continue Lasix, continue fluids restriction, continue daily weight. 12/23 Patient still need 1 L oxygen and had 92% O2 saturation. BNP is slightly elevated. plan: continue IV of Lasix, fluid restrict, daily weight, I&Os, lab monitor, vital monitor closely. 12/22 She feels her breathing is better. Patient had a 95% oxygen saturation on 2 L of oxygen. BNP is reduced significantly. Continue intravenous Lasix. Continue home medication Cozaar, metoprolol, Lipitor. Had scale manager for patient's history of A fibrillation and CHF (3) Memory loss Conclusion/Plan: stable, Mainly manifested as vague history. (4) Type 2 diabetes mellitus with complication, without long-term current use of insulin Conclusion/Plan: 12/23 her morning glucose is 177, add Lantus 5 units, continue slide scan continue slide scale and hypoglycemia and glucose check. pt's A1c is 7.7%. (5) CAD (coronary artery disease) Conclusion/Plan: stable, ontinue home medication Cozaar, metoprolol, Lipitor. Had scale manager. continue eliquis. History of bypass surgery in the past, recent stent. Is been a year so she is no longer on Plavix according to her. Troponin was checked in the ER and normal. She will be continued on a statin, aspirin, metoprolol. (6) Chronic atrial fibrillation Conclusion/Plan: HR is stable, continue Eliquis, And metoprolol and the scale manager - Current Meds Current Meds: Current Medications Generic Name Dose Route Start Last Admin Trade Name Freq PRN Reason Stop Dose Admin Acetaminophen 650 mg 12/20/21 16:05 12/21/21 10:18 Acetaminophen 325 Mg Tablet PO 650 mg Q4HR PRN Administration Pain 1 to 4 Amlodipine Besylate 10 mg 12/21/21 09:00 12/25/21 08:36 Amlodipine 5 Mg Tablet PO 10 mg DAILY L[facility] Administration Apixaban 5 mg 12/21/21 21:00 12/25/21 08:38 Apixaban 5 Mg Tablet PO 5 mg BID [facility] Administration Atorvastatin Calcium 40 mg 12/22/21 21:00 12/24/21 20:29 Atorvastatin 40 Mg Tablet PO 40 mg QPM [facility] Administration Docusate Sodium 250 - 500 mg 12/24/21 14:50 12/25/21 08:37 Docusate Sodium 250 Mg Capsule PO 250 mg DAILY [facility] Administration Ferrous Sulfate 325 mg 12/22/21 10:00 12/25/21 08:38 Ferrous Sulfate 325 Mg Tablet PO 325 mg DAILYWM [facility] Administration Furosemide 20 mg 12/21/21 06:00 12/25/21 06:00 Furosemide 20 Mg/2 Ml Vial IVP 20 mg BIDDIURETIC [facility] Administration Insulin Aspart 3 - 11 unit 12/22/21 21:00 12/25/21 08:34 Insulin Aspart 300 Unit/3 Ml Pen SUBQ 5 unit 0800,1200,1700,2100 [facility] Administration Protocol Insulin Glargine 5 unit 12/23/21 10:00 12/25/21 08:34 Insulin Glargine 300 Unit/3 Ml Pen SUBQ 5 unit QDBREAKFAST [facility] Administration Losartan Potassium 100 mg 12/21/21 09:00 12/25/21 08:34 Losartan 50 Mg Tablet PO 100 mg DAILY [facility] Administration Metoprolol Succinate 25 mg 12/25/21 09:00 12/25/21 08:37 Metoprolol Succinate 25 Mg Tablet PO 25 mg DAILY [facility] Administration Mineral Oil 1 applic 12/20/21 18:23 12/22/21 08:50 Min Oil/Dimethicon/Coconut Oil 92 Gm Tube TOP 1 applic PRN PRN Administration Skin Care Nystatin 1 applic 12/20/21 21:00 12/24/21 20:30 Nystatin Powder 15 Gm TOP 1 applic BID [facility] Administration Ondansetron HCl 4 mg 12/20/21 16:05 12/22/21 21:26 Ondansetron Odt 4 Mg Tablet TL 4 mg Q6HR PRN Administration Nausea / Vomiting Ondansetron HCl 4 mg 12/20/21 16:05 12/21/21 09:24 Ondansetron 4 Mg/2 Ml Vial IVP 4 mg Q6HR PRN Administration Nausea / Vomiting Oxycodone HCl 5 mg 12/20/21 16:05 12/21/21 16:21 Oxycodone 5 Mg Tablet PO 5 mg Q4HR PRN Administration Pain 5 to 7 Pantoprazole Sodium 40 mg 12/22/21 08:00 12/25/21 06:00 Pantoprazole 40 Mg Tablet PO 40 mg QDAC [facility] Administration Polyethylene Glycol 17 gm 12/23/21 09:00 12/25/21 08:33 Polyethylene Glycol 3350 17 Gm Packet PO 17 gm DAILY [facility] Administration Potassium Chloride 20 meq 12/20/21 17:00 12/25/21 08:39 Potassium Chloride 20 Meq Tablet PO 20 meq DAILYWM [facility] Administration Pregabalin 50 mg 12/22/21 21:00 12/24/21 20:30 Pregabalin 25 Mg Capsule PO 50 mg QPM [facility] Administration Pregabalin 25 mg 12/22/21 09:00 12/25/21 08:37 Pregabalin 25 Mg Capsule PO 25 mg DAILY [facility] Administration Senna 8.6 - 17.2 mg 12/24/21 14:50 12/25/21 08:36 Senna 8.6 Mg Tablet PO 8.6 mg DAILY [facility] Administration Sodium Chloride 10 ml 12/20/21 16:05 12/23/21 06:27 Sodium Chloride Flush 0.9% 10 Ml Syringe IVP 10 ml PRN PRN Administration NEEDED PER PROVIDER ORDERS Sodium Chloride 10 ml 12/20/21 17:00 12/25/21 00:37 Sodium Chloride Flush 0.9% 10 Ml Syringe IVP 10 ml 0100,0900,1700 [facility] Administration - Lab Result Fish Bone Diagrams: 12/25/21 05:20 12/25/21 05:20 - Additional Planning My Orders: My Active Orders 12/24/21 13:18 Out of bed 4+ hours [RC] QID 12/25/21 09:00 Metoprolol Succinate [Toprol Xl] 25 mg PO DAILY 12/25/21 21:00 Insulin Glargine [Lantus Solostar] 5 unit SUBQ QPM 12/26/21 05:00 BMP - BASIC METABOLIC PANEL [CHEM] DAILYLAB BNP - B-NATRIURETIC PEPTIDE [IAI] DAILYLAB CBC - COMP BLD CT W/AUTO DIFF [HEME] DAILYLAB 12/27/21 05:00 BMP - BASIC METABOLIC PANEL [CHEM] DAILYLAB BNP - B-NATRIURETIC PEPTIDE [IAI] DAILYLAB CBC - COMP BLD CT W/AUTO DIFF [HEME] DAILYLAB 12/28/21 05:00 BMP - BASIC METABOLIC PANEL [CHEM] DAILYLAB BNP - B-NATRIURETIC PEPTIDE [IAI] DAILYLAB CBC - COMP BLD CT W/AUTO DIFF [HEME] DAILYLAB Subjective - Subjective Patient Reports: Feeling Better, Resting Comfortably Objective Vital Signs: Vital Signs - 24 hr 12/24/21 12/24/21 12/24/21 11:55 15:47 20:24 Temperature 36.5 C 36.8 C 36.9 C Heart Rate [ 75 82 72 Brachial] Heart Rate [ Monitoring electrodes] Respiratory 16 20 18 Rate Blood Pressure 147/50 H 130/52 L 151/49 H [Right Brachial artery] O2 Saturation 93 92 92 12/24/21 12/25/21 12/25/21 23:30 04:51 07:25 Temperature 37.0 C 36.6 C 36.6 C Heart Rate [ 76 Brachial] Heart Rate [ 81 65 Monitoring electrodes] Respiratory 16 16 18 Rate Blood Pressure 129/50 L 154/60 H 136/74 H [Right Brachial artery] O2 Saturation 96 97 91 L Oxygen O2 Source Nasal cannula Oxygen Flow Rate 4 I&O (Last 24 Hrs): Intake and Output Totals x24h 12/23/21 12/24/21 12/25/21 23:59 23:59 23:59 Intake Total 838 1056 350 Output Total 200 2400 Balance 638 -1344 350 General: Alert, Oriented x3, Cooperative, No acute distress HEENT: Atraumatic Neck: Supple Lymphatic: no adenopathy Neuro: Alert, Non Focal, Oriented Times 3 Cardiovascular: Normal S1, Normal S2 Respiratory: Chest non-tender, No respiratory distress Abdomen: Normal bowel sounds, Soft Extremities: Normal pulses - Results Results: Laboratory Results WBC 7.6 x10^3/uL (4.8-10.8) 12/25/21 05:20 RBC 3.72 10^6/uL (4.20-5.40) L 12/25/21 05:20 Hgb 10.5 g/dL (12.0-16.0) L 12/25/21 05:20 Hct 32.9 % (37.0-47.0) L 12/25/21 05:20 MCV 88.4 fL (81.0-99.0) 12/25/21 05:20 MCH 28.2 pg (27.0-31.0) 12/25/21 05:20 MCHC 31.9 g/dL (32.0-36.0) L 12/25/21 05:20 RDW 16.7 % (12.0-15.0) H 12/25/21 05:20 Plt Count 315 10^3/uL (130-450) 12/25/21 05:20 MPV 9.5 fL (7.9-10.8) 12/25/21 05:20 Reticulocyte % (Auto) 1.92 % (0.5-2.3) 12/22/21 05:41 Neut # (Auto) 5.4 10^3/uL (1.5-6.6) 12/25/21 05:20 Lymph # (Auto) 1.1 10^3/uL (1.5-3.5) L 12/25/21 05:20 Thayer # (Auto) 0.8 10^3/uL (0.0-1.0) 12/25/21 05:20 Eos # (Auto) 0.2 10^3/uL (0.0-0.7) 12/25/21 05:20 Baso # (Auto) 0.0 10^3/uL (0.0-0.1) 12/25/21 05:20 Absolute Nucleated RBC 0.00 x10^3/uL 12/25/21 05:20 Nucleated RBC % 0.0 /100WBC 12/25/21 05:20 Absolute Retic 0.066 10^6/uL (0.020-0.110) 12/22/21 05:41 PT 14.0 secs (9.9-12.6) H 12/20/21 14:23 INR 1.3 (0.8-1.2) H 12/20/21 14:23 Sodium 136 mmol/L (135-145) 12/25/21 05:20 Potassium 3.5 mmol/L (3.5-5.0) 12/25/21 05:20 Chloride 95 mmol/L (101-111) L 12/25/21 05:20 Carbon Dioxide 30 mmol/L (21-32) 12/25/21 05:20 Anion Gap 11.0 (6-13) 12/25/21 05:20 BUN 27 mg/dL (6-20) H 12/25/21 05:20 Creatinine 1.0 mg/dL (0.4-1.0) 12/25/21 05:20 Estimated GFR (MDRD) 53 (>89) L 12/25/21 05:20 Glucose 221 mg/dL (70-100) H 12/25/21 05:20 Estimat Average Glucose 174 mg/dL (70-100) H 12/21/21 05:27 Hemoglobin A1c % 7.7 % (4.27-6.07) H 12/21/21 05:27 Calcium 8.9 mg/dL (8.5-10.3) 12/25/21 05:20 Iron 26 ug/dL (28-170) L 12/22/21 05:41 TIBC 328 ug/dL (250-450) 12/22/21 05:41 % Saturation 8 % (20-50) L 12/22/21 05:41 Transferrin 234 mg/dL (192-382) 12/22/21 05:41 Ferritin 24.3 ng/mL (11.0-306.8) 12/22/21 05:41 Total Bilirubin 1.4 mg/dL (0.2-1.0) H 12/20/21 14:23 AST 17 IU/L (10-42) 12/20/21 14:23 ALT 17 IU/L (10-60) 12/20/21 14:23 Alkaline Phosphatase 76 IU/L (42-121) 12/20/21 14:23 Lactate Dehydrogenase 124 IU/L (91-225) 12/22/21 05:41 Troponin I High Sens 10.7 ng/L (2.3-14.8) 12/20/21 14:23 B-Natriuretic Peptide 578 pg/mL (5-100) H 12/25/21 05:20 Total Protein 7.5 g/dL (6.7-8.2) 12/20/21 14:23 Albumin 3.8 g/dL (3.2-5.5) 12/20/21 14:23 Globulin 3.7 g/dL (2.1-4.2) 12/20/21 14:23 Albumin/Globulin Ratio 1.0 (1.0-2.2) 12/20/21 14:23 Lipase 29 U/L (22-51) 12/20/21 14:23 Vitamin B12 676 pg/mL (180-914) 12/22/21 05:41 Nasal Adenovirus (PCR) NOT DETECTED 12/20/21 16:24 Nasal B. parapertussis DNA (PCR) NOT DETECTED 12/20/21 16:24 Nasal Coronavir 229E PCR NOT DETECTED 12/20/21 16:24 Nasal Coronavir HKU1 PCR NOT DETECTED 12/20/21 16:24 Nasal Coronavir NL63 PCR NOT DETECTED 12/20/21 16:24 Nasal Coronavir OC43 PCR NOT DETECTED 12/20/21 16:24 Nasal Enterovir/Rhinovir PCR NOT DETECTED 12/20/21 16:24 Nasal Influenza B PCR NOT DETECTED 12/20/21 16:24 Nasal Influenza A PCR NOT DETECTED 12/20/21 16:24 Nasal Parainfluen 1 PCR NOT DETECTED 12/20/21 16:24 Nasal Parainfluen 2 PCR NOT DETECTED 12/20/21 16:24 Nasal Parainfluen 3 PCR NOT DETECTED 12/20/21 16:24 Nasal Parainfluen 4 PCR NOT DETECTED 12/20/21 16:24 Nasal RSV (PCR) NOT DETECTED 12/20/21 16:24 Nasal B.pertussis DNA PCR NOT DETECTED 12/20/21 16:24 Nasal C.pneumoniae (PCR) NOT DETECTED 12/20/21 16:24 Christiano Human Metapneumo PCR NOT DETECTED 12/20/21 16:24 Nasal M.pneumoniae (PCR) NOT DETECTED 12/20/21 16:24 Nasal SARS-CoV-2 (PCR) NOT DETECTED 12/20/21 16:24 - Procedures Procedures: Procedures CATARAC PHACOEMULS/ASPIR (09/19/14) INSERT LENS AT CATAR EXT (09/19/14) ABX Reporting Has patient been on IV antibiotics over the past 48 hours?: No Current Medications - Current Medications Current Medications: Active Medications Acetaminophen (Acetaminophen 325 Mg Tablet) 650 mg PO Q4HR PRN PRN Reason: Pain 1 to 4 Last Admin: 12/21/21 10:18 Dose: 650 mg Amlodipine Besylate (Amlodipine 5 Mg Tablet) 10 mg PO DAILY [facility] Last Admin: 12/25/21 08:36 Dose: 10 mg Apixaban (Apixaban 5 Mg Tablet) 5 mg PO BID [facility] Last Admin: 12/25/21 08:38 Dose: 5 mg Atorvastatin Calcium (Atorvastatin 40 Mg Tablet) 40 mg PO QPM [facility] Last Admin: 12/24/21 20:29 Dose: 40 mg Docusate Sodium (Docusate Sodium 250 Mg Capsule) 250 - 500 mg PO DAILY [facility] Last Admin: 12/25/21 08:37 Dose: 250 mg Ferrous Sulfate (Ferrous Sulfate 325 Mg Tablet) 325 mg PO DAILYWM [facility] Last Admin: 12/25/21 08:38 Dose: 325 mg Furosemide (Furosemide 20 Mg/2 Ml Vial) 20 mg IVP BIDDIURETIC [facility] Last Admin: 12/25/21 06:00 Dose: 20 mg Insulin Aspart (Insulin Aspart 300 Unit/3 Ml Pen) 3 - 11 unit SUBQ 0800,1200,1700,2100 [facility]; Protocol Last Admin: 12/25/21 08:34 Dose: 5 unit Insulin Glargine (Insulin Glargine 300 Unit/3 Ml Pen) 5 unit SUBQ QDBREAKFAST [facility] Last Admin: 12/25/21 08:34 Dose: 5 unit Insulin Glargine (Insulin Glargine 300 Unit/3 Ml Pen) 5 unit SUBQ QPM [facility] Losartan Potassium (Losartan 50 Mg Tablet) 100 mg PO DAILY [facility] Last Admin: 12/25/21 08:34 Dose: 100 mg Metoprolol Succinate (Metoprolol Succinate 25 Mg Tablet) 25 mg PO DAILY [facility] Last Admin: 12/25/21 08:37 Dose: 25 mg Mineral Oil (Min Oil/Dimethicon/Coconut Oil 92 Gm Tube) 1 applic TOP PRN PRN PRN Reason: Skin Care Last Admin: 12/22/21 08:50 Dose: 1 applic Nystatin (Nystatin Powder 15 Gm) 1 applic TOP BID [facility] Last Admin: 12/24/21 20:30 Dose: 1 applic Ondansetron HCl (Ondansetron Odt 4 Mg Tablet) 4 mg TL Q6HR PRN PRN Reason: Nausea / Vomiting Last Admin: 12/22/21 21:26 Dose: 4 mg Ondansetron HCl (Ondansetron 4 Mg/2 Ml Vial) 4 mg IVP Q6HR PRN PRN Reason: Nausea / Vomiting Last Admin: 12/21/21 09:24 Dose: 4 mg Oxycodone HCl (Oxycodone 5 Mg Tablet) 5 mg PO Q4HR PRN PRN Reason: Pain 5 to 7 Last Admin: 12/21/21 16:21 Dose: 5 mg Pantoprazole Sodium (Pantoprazole 40 Mg Tablet) 40 mg PO QDAC [facility] Last Admin: 12/25/21 06:00 Dose: 40 mg Polyethylene Glycol (Polyethylene Glycol 3350 17 Gm Packet) 17 gm PO DAILY [facility] Last Admin: 12/25/21 08:33 Dose: 17 gm Potassium Chloride (Potassium Chloride 20 Meq Tablet) 20 meq PO DAILYWM [facility] Last Admin: 12/25/21 08:39 Dose: 20 meq Pregabalin (Pregabalin 25 Mg Capsule) 50 mg PO QPM [facility] Last Admin: 12/24/21 20:30 Dose: 50 mg Pregabalin (Pregabalin 25 Mg Capsule) 25 mg PO DAILY [facility] Last Admin: 12/25/21 08:37 Dose: 25 mg Senna (Senna 8.6 Mg Tablet) 8.6 - 17.2 mg PO DAILY [facility] Last Admin: 12/25/21 08:36 Dose: 8.6 mg Sodium Chloride (Sodium Chloride Flush 0.9% 10 Ml Syringe) 10 ml IVP PRN PRN PRN Reason: NEEDED PER PROVIDER ORDERS Last Admin: 12/23/21 06:27 Dose: 10 ml Sodium Chloride (Sodium Chloride Flush 0.9% 10 Ml Syringe) 10 ml IVP 0100,0900,1700 [facility] Last Admin: 12/25/21 00:37 Dose: 10 ml Metformin HCl 1,000 mg PO BIDWM 04/21/14 Metoprolol Tartrate 100 mg PO BID 04/21/14 Insulin Glargine [Lantus] 25 unit SUBQ DAILY 09/04/14 Aspirin [Aspir 81] 81 mg PO DAILY 09/19/14 Losartan [Cozaar] 100 mg PO DAILY 09/19/14 Pregabalin [Lyrica] 50 mg PO QPM 09/19/14 Atorvastatin Calcium [Lipitor] 40 mg PO QPM 12/31/14 Insulin Lispro [Humalog] 6 units SQ TIDWM 12/31/14 Cyanocobalamin (Vitamin B-12) [Vitamin B-12 (100mcg tab)] 1,000 mcg PO DAILY 05/09/19 Clopidogrel [Plavix] 75 mg PO DAILY 04/06/21 amLODIPine [Norvasc] 10 mg PO DAILY 04/06/21 Meloxicam [Mobic] 15 mg PO DAILY PRN 12/21/21 Pregabalin [Lyrica] 25 mg PO DAILY 12/21/21 Solifenacin Succinate [Vesicare] 5 mg PO DAILY 12/21/21
[2021-12-25] MEDS: NYSTATIN POWDER 15 GM TOP SCH ×2 (11:34→20:28)
[2021-12-25] MEDS: SODIUM CHLORIDE FLUSH 0.9% 10 ML SYRINGE IVP PRN (13:41)
[2021-12-25] MEDS ORDERED: BISACODYL 10 MG SUPP PR ONE (19:53)
[2021-12-25] MEDS: ATORVASTATIN 40 MG TABLET PO SCH (20:27)
[2021-12-25] MEDS: MIN OIL/DIMETHICON/COCONUT OIL 92 GM TUBE TOP PRN (20:28)
[2021-12-25] MEDS ORDERED: INSULIN GLARGINE 300 UNIT/3 ML PEN SUBQ SCH (21:00)
[2021-12-25 22:03] LABS: FECAL OCCULT BLOOD (FIT) NEGATIVE (NEGATIVE)
[2021-12-26 05:49] LABS: BASOPHILS # (AUTO) 0.1 10^3/uL (0.0-0.1); BASOPHILS % (AUTO) 0.7 %; EOSINOPHILS # (AUTO) 0.3 10^3/uL (0.0-0.7); EOSINOPHILS % (AUTO) 3.6 %; HCT - HEMATOCRIT 32.6 % (37.0-47.0); HGB - HEMOGLOBIN 10.4 g/dL (12.0-16.0); LYMPHOCYTES # (AUTO) 1.1 10^3/uL (1.5-3.5); LYMPHOCYTES % (AUTO) 14.4 %; MEAN CORPUSCULAR HGB CONC 31.9 g/dL (32.0-36.0); MEAN CORPUSCULAR VOLUME 87.6 fL (81.0-99.0); MEAN PLATELET VOLUME 9.6 fL (7.9-10.8); MONOCYTES # (AUTO) 0.8 10^3/uL (0.0-1.0); MONOCYTES % (AUTO) 10.3 %; NEUTROPHILS # (AUTO) 5.3 10^3/uL (1.5-6.6); NEUTROPHILS % (AUTO) 70.7 %; PLT - PLATELET COUNT 324 10^3/uL (130-450); RED BLOOD COUNT 3.72 10^6/uL (4.20-5.40); RED CELL DISTRIBUTION WIDTH 16.5 % (12.0-15.0); WHITE BLOOD COUNT 7.6 x10^3/uL (4.8-10.8)
[2021-12-26 05:55] LABS: CALCIUM 8.9 mg/dL (8.5-10.3); POTASSIUM 3.5 mmol/L (3.5-5.0)
[2021-12-26] MEDS: SODIUM CHLORIDE FLUSH 0.9% 10 ML SYRINGE IVP SCH ×2 (06:35→08:47)
[2021-12-26] MEDS: FUROSEMIDE 20 MG/2 ML VIAL IVP SCH (06:35)
[2021-12-26] MEDS: PANTOPRAZOLE 40 MG TABLET PO SCH (06:35)
[2021-12-26] MEDS: FERROUS SULFATE 325 MG TABLET PO SCH (07:53)
[2021-12-26] MEDS: POTASSIUM CHLORIDE 20 MEQ TABLET PO SCH (07:53)
[2021-12-26] MEDS: INSULIN ASPART 300 UNIT/3 ML PEN SUBQ SCH ×2 (07:53→11:33)
[2021-12-26] MEDS: INSULIN GLARGINE 300 UNIT/3 ML PEN SUBQ SCH (07:54)
[2021-12-26] MEDS: APIXABAN 5 MG TABLET PO SCH (08:44)
[2021-12-26] MEDS: METOPROLOL SUCCINATE 25 MG TABLET PO SCH (08:44)
[2021-12-26] MEDS: LOSARTAN 50 MG TABLET PO SCH (08:45)
[2021-12-26] MEDS: amLODIPine 5 MG TABLET PO SCH (08:45)
[2021-12-26] MEDS: DOCUSATE SODIUM 250 MG CAPSULE PO SCH (08:45)
[2021-12-26] MEDS: polyethylene glycoL 3350 17 GM PACKET PO SCH (08:46)
[2021-12-26] MEDS: SENNA 8.6 MG TABLET PO SCH (08:46)
[2021-12-26] MEDS: NYSTATIN POWDER 15 GM TOP SCH (08:46)
[2021-12-26] MEDS: PREGABALIN 25 MG CAPSULE PO SCH (08:47)
--- NOTE | 2021-12-26 10:39 | DISCHARGE SUMMARY ---
Discharge Summary Admit Date: 12/20/21 Discharge Date: 12/26/21 Discharging Provider: Robert Pickering Primary Care Provider: Elizabeth Melvin Code Status: Do Not Attempt Resuscitation Condition at Discharge: Stable Discharge Disposition: 01 Home, Self Care - DIAGNOSES Admission Diagnoses: Acute exacerbation of CHF Memory loss Type 2 diabetes mellitus Coronary artery disease Chronic atrial fibrillation Discharge Diagnoses with Status of Each Condition: Acute exacerbation of CHF: Improved. Discharged home with lasix 20mg po bid X7 days then he will resume his daily dose of 20mg po daily Memory loss: Chronic Type 2 diabetes mellitus: Chronic. Resume home medication at home dose Coronary artery disease: Chronic. On metoprolol, Aspirin, Atorvastan. Eiquis ordered and Plavix discontinued Chronic atrial fibrillation: CHADVasc of 9. Eliquis 5mg po bid ordered - HPI History of Present Illness: Per HPI: This jered lady has a history of coronary artery disease. Her first bypass surgery was approximately 2009, and then she underwent an angiogram for nonspecific shortness of breath in 2020 and underwent a stent then. She did have an echocardiogram in 2011 associated with a TIA and left facial droop and left body weakness. The echocardiogram in November 2011 had normal LV chamber s ize and ejection fraction 60 to 65%. Grade 1 diastolic dysfunction compatible with hypertensive heart disease. Aortic sclerosis without aortic stenosis.She has memory loss so there is some vagueness to her history. She said that she has been short of breath for quite some time. When I asked her to try and pin that down to before the New Year's, before [place] or before Thanksgiving she thinks it somewhere in the winter she started getting more short of breath than her usual chronic shortness of breath. She had increasing leg edema. In reviewing the medical record, she was seen by an BIOCHEMISTRY PROFESSOR September 24, 2021 where she was felt to be having more diastolic dysfunction and was given Lasix 20 mg a day. There are some referrals and authorizations made after that for diabetic education, refills of medications, and then she was seen in the walk-in clinic December 15, 2021 for shoulder pain. There was no mention of her diastolic heart failure and how she was doing with the new Lasix. She states that the Lasix really did not help. She feels like she is getting worse. In the last few days she cannot even walk across her living room. Edema has been a little bit worse. She always has chronic palpitations but does not have chest pain, worsening palpitations. She denies orthopnea. There is no fever, chills, phlegm production. She has a chronic daily cough that is unchanged. Today she was so winded that she called EMS. When EMS picked her up she was 87 to 88% on room air and required 4 L. She was given 20 Lasix in route to the ER. Blood pressure was 160/104.In the emergency room she got another 20 mg of Lasix. And had 1 inch of nitro paste placed.In the emergency room they were able to reduce her oxygen requirement to 3 L. She is now saturating 93 to 94%. She has easy dyspnea with any movement just to sitting her up or transferring her [facility]. Her chest x-ray shows congestive heart failure. Her BNP is 1504. Troponin 10.7. BUN and creatinine are stable. CBC is stable. INR is 1.3. There is no Covid testing done. Emergency room provider is asking us to place this patient in observation for acute on chronic heart failure. Most likely diastolic. - HOSPITAL COURSE Hospital Course: Patient was admitted and placed on supplemental oxygen. She required up to 4 L to keep her oxygen saturation in the 90s. She was treated with Lasix 20 mg IV twice daily daily through the course of her hospital stay. Upon discharge she was prescribed Lasix 20 mg p.o. twice daily for 7 days. After this she is to resume her Lasix 20 mg p.o. daily. She had pause of 3.2 seconds on 1 night of her hospital stay. As a result her metoprolol was decreased to 25 mg p.o. every morning. She has chronic atrial fibrillation and a [id number] of 9. It is unclear why she has not been on an anticoagulation. She was prescribed Eliquis 5 mg p.o. twice daily while in the hospital. This was continued upon discharge. She has been on a baby aspirin and Plavix 75 mg prior to admission. The Plavix 75 mg daily was discontinued at the time of discharge. She had a 2D echocardiogram done which showed an EF of 60 to 65%. There was no regional wall motion abnormality. There was moderate to severe right atrial enlargement. There was moderate increase in left atrial volume index. No mitral stenosis noted. There was mild mitral regurgitation.Sized left pleural effusion noted. High lower extremity edema improved significantly to the cause of her hospital stay. An oxygen desaturation study was done prior to discharge and determined the patient needed home oxygen. On room air at rest oxygen saturation was 96%. On room air with ambulation oxygen saturation is 83%. On 2 L of oxygen while ambulating oxygen saturation was 92%. I am ordering 2 L/min with ambulation to treat the patient's CHF and COPD - ALLERGIES Allergies/Adverse Reactions: Allergies Allergy/AdvReac Type Severity Reaction Status Date / Time No Known Drug Allergies Allergy Verified 12/20/21 14:12 - MEDICATIONS Home Medications: Ambulatory Orders Medication Instructions Recorded Confirmed Metformin HCl 1,000 mg PO BIDWM 04/21/14 12/21/21 Insulin Glargine [Lantus] 25 unit SUBQ DAILY 09/04/14 12/21/21 Aspirin [Aspir 81] 81 mg PO DAILY 09/19/14 12/21/21 Losartan [Cozaar] 100 mg PO DAILY 09/19/14 12/21/21 Pregabalin [Lyrica] 50 mg PO QPM 09/19/14 12/21/21 Atorvastatin Calcium [Lipitor] 40 mg PO QPM 12/31/14 12/21/21 Insulin Lispro [Humalog] 6 units SQ TIDWM 12/31/14 12/21/21 Cyanocobalamin (Vitamin B-12) 1,000 mcg PO DAILY 05/09/19 12/21/21 [Vitamin B-12 (100mcg tab)] amLODIPine [Norvasc] 10 mg PO DAILY 04/06/21 12/21/21 Magnesium Oxide [Mag Ox] 400 mg PO DAILY #14 tablet 07/19/21 12/21/21 Pregabalin [Lyrica] 25 mg PO DAILY 12/21/21 12/21/21 Solifenacin Succinate [Vesicare] 5 mg PO DAILY 12/21/21 12/21/21 Apixaban [Eliquis] 5 mg PO BID 30 Days #60 tablet 12/26/21 Furosemide [Lasix] 20 mg PO BID 7 Days #14 tablet 12/26/21 Metoprolol Succinate [Toprol Xl] 25 mg PO DAILY 30 Days #30 tablet 12/26/21 - PHYSICAL EXAM AT DISCHARGE General Appearance: positive: No acute distress, Alert Eyes Bilateral: positive: PERRL, EOMI ENT: positive: No signs of dehydration Neck: positive: No JVD, Trachea midline Respiratory: positive: Chest non-tender, No respiratory distress, Other (Mild Crackles) Cardiovascular: positive: No murmur, Irregularly irregular Abdomen: positive: Non-tender, No organomegaly, Nml bowel sounds, No distention. negative: Guarding, Rebound Back: positive: Nml inspection Skin: positive: Color nml, No rash, Warm, Dry Extremities: positive: Non-tender, Full ROM, Nml appearance, Pedal edema (trace edema) Neurologic/Psychiatric: positive: Oriented x3, Mood/affect nml - LABS Result Diagrams: 12/26/21 05:17 12/26/21 05:17 - TIME SPENT Time Spent in Discharge (Minutes): 20
--- NOTE | 2021-12-26 10:43 | Discharge Plan ---
Discharge Plan Problem Reviewed?: Yes Disposition: Home, Self Care Condition: Stable Prescriptions: Furosemide [Lasix] 20 mg PO BID 7 Days #14 tablet Metoprolol Succinate [Toprol Xl] 25 mg PO DAILY 30 Days #30 tablet Diet: Low Sodium Activity Restrictions: Activity as Tolerated Weight Bearing: Full Weight Health Concerns: You were admitted on 12/20/21 with difficulty in breathing which was due to CHF exacerbation. At the time of admission your oxygen saturation was 87 to 88% on room air. You were requiring 4 L of oxygen. You were treated with Lasix 20 mg IV twice a day. Over the course of the past 6 days your breathing has steadily improved and your lower extremity swelling has also significantly decreased. You are ready to be discharged and upon discharge I would prescribe Lasix 20 mg p.o. twice daily for 7 more days. After this you would return to taking your Lasix 20 mg p.o. daily. During your hospital stay you had and incident of a 3.2-second pause in your heartbeat. This could likely be due to the amount of metoprolol medication you are taking. As a result this medication was decreased to metoprolol 25 mg every morning. You are expected to continue taking this new dose of your medication. You have been advised to watch the amount of salt you consume because this is likely to make your breathing worse due to fluid overload. You will be discharged home with supplemental oxygen to use as needed. You are to follow-up with your primary care physician within 7 days or as needed. The above plan was discussed with you, you expressed understanding and agreeable with the plan. You are being discharged in stable condition. No Smoking: If you smoke, Please STOP! Call for help. Follow-up with: Elizabeth Melvin DO [Primary Care Provider] -
[2021-12-26 12:19] VITALS: BP 150/65
== END 2021-12-26 13:18 | disposition home or self-care (01) | DRG 291 ==
LOC: EDUNIT# → ED 13:59 → MS2 16:05 → OBSVTOIN 12-25 11:06
PROVIDERS: ADMIT Specialist; ATTEND Internal Medicine
DX: I13.0 Hypertensive heart and chronic kidney disease with heart failure and stage 1 through stage 4 chronic kidney disease, or unspecified chronic kidney disease (principal); I50.33 Acute on chronic diastolic (congestive) heart failure; I48.20 Chronic atrial fibrillation, unspecified; I69.954 Hemiplegia and hemiparesis following unspecified cerebrovascular disease affecting left non-dominant side; N18.9 Chronic kidney disease, unspecified; E11.22 Type 2 diabetes mellitus with diabetic chronic kidney disease; Z79.4 Long term (current) use of insulin; Z79.84 Long term (current) use of oral hypoglycemic drugs; R41.3 Other amnesia; I25.10 Atherosclerotic heart disease of native coronary artery without angina pectoris; Z95.1 Presence of aortocoronary bypass graft; Z20.822 Contact with and (suspected) exposure to COVID-19; Z95.5 Presence of coronary angioplasty implant and graft; E05.90 Thyrotoxicosis, unspecified without thyrotoxic crisis or storm; R32 Unspecified urinary incontinence; E78.00 Pure hypercholesterolemia, unspecified; Z86.73 Personal history of transient ischemic attack (TIA), and cerebral infarction without residual deficits; E11.42 Type 2 diabetes mellitus with diabetic polyneuropathy; E11.51 Type 2 diabetes mellitus with diabetic peripheral angiopathy without gangrene; E11.319 Type 2 diabetes mellitus with unspecified diabetic retinopathy without macular edema; K21.9 Gastro-esophageal reflux disease without esophagitis; G47.30 Sleep apnea, unspecified; F01.50 Vascular dementia, unspecified severity, without behavioral disturbance, psychotic disturbance, mood disturbance, and anxiety; F42.3 Hoarding disorder; F32.A Depression, unspecified; F41.9 Anxiety disorder, unspecified; M54.9 Dorsalgia, unspecified; E03.9 Hypothyroidism, unspecified; Z66 Do not resuscitate; Z79.899 Other long term (current) drug therapy; R00.1 Bradycardia, unspecified; T44.7X5A Adverse effect of beta-adrenoreceptor antagonists, initial encounter; Y92.009 Unspecified place in unspecified non-institutional (private) residence as the place of occurrence of the external cause; G89.29 Other chronic pain
CPT/HCPCS: 36415; 71045; 80048; 80053; 82274; 82607; 82728; 83036; 83540; 83615; 83690; 83880; 84466; 84484; 85025; 85045; 85610; 87631; 93005; 93306; 94761; 96372; 96374; 96375; 96376; 99284; 99285; A6250; A9270; G0378; J1650; J1815; Q0162; 0202U

== ENCOUNTER 2022-01-04 11:14 | Outpatient (CLI) | payer MEDICARE, MEDICAID ==
--- NOTE | 2022-01-04 16:10 | XRAY Report ---
PROCEDURE: Chest 2 View X-Ray INDICATIONS: CHF TECHNIQUE: 2 view(s) of the chest. COMPARISON: Single view the chest dated 12/20/2021 FINDINGS: Surgical changes and devices: Patient is status post median sternotomy and CABG. Lungs and pleura: No pneumothorax. There is blunting at the left costophrenic sulcus suggesting small residual effusion versus pleural scarring. The right effusion has resolved. Lungs are clear. Pulmo nary edema visualized on the prior study has resolved. Mediastinum: Mediastinal contours are normal. Heart size is enlarged, but is decreased in size when compared with the prior study dated 12/20/2021. Bones and chest wall: No suspicious bony abnormalities. Soft tissues appear unremarkable. IMPRESSION: Cardiomegaly. Resolved and report pulmonary edema and near complete resolution of the pl eural effusions when compared with the prior study. Reviewed by: Nuha Denson MD on 01/04/2022 4:08 PM PST Approved by: Nuha Denson MD on 01/04/2022 4:08 PM PST Station ID: [id number]
== END 2022-01-04 11:15 | disposition home or self-care (01) ==
LOC: DI.N 11:14
PROVIDERS: ATTEND Family Medicine
DX: I50.9 Heart failure, unspecified (principal); I51.7 Cardiomegaly

== ENCOUNTER 2022-01-19 11:17 | Outpatient (CLI) | payer MEDICARE, MEDICAID | END 2022-01-19 11:18 | disposition home or self-care (01) | LOC: LAB.N 11:17 | PROVIDERS: ATTEND Nurse Practitioner | DX: Z53.9 Procedure and treatment not carried out, unspecified reason (principal); I48.91 Unspecified atrial fibrillation; E11.39 Type 2 diabetes mellitus with other diabetic ophthalmic complication ==

== ENCOUNTER 2022-01-19 12:14 | Outpatient (CLI) | payer MEDICARE, MEDICAID ==
[2022-01-19 18:30] LABS: CALCIUM 9.6 mg/dL (8.5-10.3); POTASSIUM 3.9 mmol/L (3.5-5.0)
== END 2022-01-19 12:15 | disposition home or self-care (01) ==
LOC: LAB.N 12:14
PROVIDERS: ATTEND Family Medicine
DX: I50.33 Acute on chronic diastolic (congestive) heart failure (principal)
CPT/HCPCS: 36415; 80048

== ENCOUNTER 2022-01-25 08:00 | Outpatient (CLI) | payer MEDICARE, MEDICAID ==
--- NOTE | 2022-01-25 14:19 | XRAY Report ---
PROCEDURE: Shoulder 1 View RT INDICATIONS: SHOULDER PAIN TECHNIQUE: 1 views of the shoulder were acquired. COMPARISON: None. FINDINGS: Bones: 3 surgical anchors are noted in right humeral head. Chronic-appearing deformity involving rig ht proximal humeral shaft is again seen not significantly changed from prior study. No gross new frac ture or dislocation. Mild to moderate glenohumeral joint osteoarthritic changes are seen. No suspici ous bony lesions. Visualized ribs appear intact. Soft tissues: No suspicious soft tissue calcifications. IMPRESSION: Old healed proximal humeral shaft fracture and postsurgical changes in right humeral hea d. No gross acute fracture or dislocation. Reviewed by: Channing Mccoy MD on 01/25/2022 2:18 PM PDT Approved by: Channing Mccoy MD on 01/25/2022 2:18 PM PDT Station ID: [id number]
== END 2022-01-25 23:59 ==
LOC: DI.WOS 08:00
PROVIDERS: ATTEND Physician Assistant
DX: M25.511 Pain in right shoulder (principal); S42.301D Unspecified fracture of shaft of humerus, right arm, subsequent encounter for fracture with routine healing

== ENCOUNTER 2022-03-18 12:52 | Outpatient (CLI) | payer MEDICARE, MEDICAID ==
[2022-03-18 18:33] LABS: CALCIUM 9.9 mg/dL (8.5-10.3); CREATININE 1.6 mg/dL (0.4-1.0); POTASSIUM 4.2 mmol/L (3.5-5.0)
== END 2022-03-18 12:53 | disposition home or self-care (01) ==
LOC: LAB.N 12:52
PROVIDERS: ATTEND Nurse Practitioner
DX: I11.0 Hypertensive heart disease with heart failure (principal); I50.32 Chronic diastolic (congestive) heart failure
CPT/HCPCS: 36415; 80048

== ENCOUNTER 2022-03-28 10:49 | Outpatient (CLI) | payer MEDICARE, MEDICAID | END 2022-03-28 10:50 | disposition EMS.NT | LOC: EMS 10:49 | DX: Z03.89 Encounter for observation for other suspected diseases and conditions ruled out (principal) ==

== ENCOUNTER 2022-04-04 23:41 | Outpatient (CLI) | payer MEDICARE, MEDICAID | END 2022-04-04 23:42 | disposition critical access hospital (66) | LOC: EMS 23:41 | DX: R53.1 Weakness (principal); W18.39XA Other fall on same level, initial encounter; Y92.039 Unspecified place in apartment as the place of occurrence of the external cause | CPT/HCPCS: A0425; A0427 ==

== ENCOUNTER 2022-04-05 00:02 | Emergency (ER) | payer MEDICARE, MEDICAID ==
[2022-04-05] MEDS ORDERED: SODIUM CHLORIDE 0.9% 1,000 ML IV STA (00:14)
[2022-04-05 00:24] LABS: BASOPHILS # (AUTO) 0.1 10^3/uL (0.0-0.1); BASOPHILS % (AUTO) 0.6 %; EOSINOPHILS # (AUTO) 0.6 10^3/uL (0.0-0.7); EOSINOPHILS % (AUTO) 5.6 %; HCT - HEMATOCRIT 35.8 % (37.0-47.0); HGB - HEMOGLOBIN 11.3 g/dL (12.0-16.0); LYMPHOCYTES # (AUTO) 1.1 10^3/uL (1.5-3.5); LYMPHOCYTES % (AUTO) 9.7 %; MEAN CORPUSCULAR HEMOGLOBIN 28.7 pg (27.0-31.0); MEAN CORPUSCULAR HGB CONC 31.6 g/dL (32.0-36.0); MEAN CORPUSCULAR VOLUME 90.9 fL (81.0-99.0); MONOCYTES # (AUTO) 1.1 10^3/uL (0.0-1.0); MONOCYTES % (AUTO) 9.4 %; NEUTROPHILS # (AUTO) 8.4 10^3/uL (1.5-6.6); NEUTROPHILS % (AUTO) 74.4 %; PLT - PLATELET COUNT 283 10^3/uL (130-450); RED BLOOD COUNT 3.94 10^6/uL (4.20-5.40); RED CELL DISTRIBUTION WIDTH 16.9 % (12.0-15.0); WHITE BLOOD COUNT 11.2 x10^3/uL (4.8-10.8)
[2022-04-05 00:37] LABS: ALBUMIN 3.9 g/dL (3.2-5.5); ALBUMIN/GLOBULIN RATIO 1.2 (1.0-2.2); BILIRUBIN,TOTAL 0.7 mg/dL (0.2-1.0); CALCIUM 9.8 mg/dL (8.5-10.3); CREATININE 1.8 mg/dL (0.4-1.0); POTASSIUM 4.7 mmol/L (3.5-5.0); TOTAL PROTEIN 7.1 g/dL (6.7-8.2)
[2022-04-05] MEDS ORDERED: ATROPINE 0.4 MG/ML VIAL IVP ONE (00:44)
--- NOTE | 2022-04-05 02:16 | ED Physician Documentation ---
History of Present Illness - Stated complaint Stated Complaint: GLF/GEN WEAKNESS - Chief complaint Chief Complaint: Neuro - History obtained from History obtained from: Patient, EMS - Additonal information Additional information: The patient comes to the emergency department chief complaint of slow motion ground-level fall while walking. She states that she was just walking through her house when she began to feel weak in the legs and slowly assisted herself to the floor. The patient did not hit her head or lose consciousness. She was not injured in any other way. She states that she has chronic generalized weakness but this has been worse for the last 5 days. No fevers or chills. No dysuria. No nausea or vomiting. No abdominal or chest pain. No shortness of breath. No other specific complaints at this time. No focal neurologic deficits. The patient has a history of atrial fibrillation. She states that she has had to have her metoprolol decreased in the last several months because it was having too much effect on her heart. She is not able to be more specific than this. Review of Systems Ten Systems: 10 systems reviewed and negative Constitutional: reports: Reviewed and negative Eyes: reports: Reviewed and negative Ears: reports: Reviewed and negative Nose: reports: Reviewed and negative Throat: reports: Reviewed and negative Cardiac: reports: Reviewed and negative Respiratory: reports: Reviewed and negative GI: reports: Reviewed and negative : reports: Reviewed and negative Skin: reports: Reviewed and negative Musculoskeletal: reports: Reviewed and negative Neurologic: reports: Generalized weakness Psychiatric: reports: Reviewed and negative Endocrine: reports: Reviewed and negative Immunocompromised: reports: Reviewed and negative PD PAST MEDICAL HISTORY - Past Medical History Past Medical History: Yes Cardiovascular: Congestive heart failure, Hypertension, High cholesterol, Coronary artery disease, Peripheral Vascular Disease, Atrial fibrillation, Murmur, Other Respiratory: Sleep apnea, CPAP use Neuro: Dementia, CVA, Peripheral neuropathy, Other Endocrine/Autoimmune: Type 2 diabetes, HyPOthyroidism GI: GERD, GI bleed, Chronic constipation, Hemorrhoids : Incontinence, Chronic bladder infection, Kidney stones HEENT: Chronic vision loss Psych: Depression, Anxiety Musculoskeletal: Osteoarthritis, Gout, Chronic back pain Derm: Other - Past Surgical History Past Surgical History: Yes Ortho: Rotator cuff repair, 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[employer]: 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 and currettage Cardiovascular: CABG, Coronary stent HEENT: Tonsil/Adenoidectomy, Other - Present Medications Home Medications: Ambulatory Orders Medication Instructions Recorded Confirmed Metformin HCl 1,000 mg PO BIDWM 04/21/14 04/05/22 Insulin Glargine [Lantus] 25 unit SUBQ DAILY 09/04/14 04/05/22 Aspirin [Aspir 81] 81 mg PO DAILY 09/19/14 04/05/22 Losartan [Cozaar] 100 mg PO DAILY 09/19/14 04/05/22 Pregabalin [Lyrica] 50 mg PO QPM 09/19/14 04/05/22 Atorvastatin Calcium [Lipitor] 40 mg PO QPM 12/31/14 04/05/22 Insulin Lispro [Humalog] 6 units SQ TIDWM 12/31/14 04/05/22 Cyanocobalamin (Vitamin B-12) 1,000 mcg PO DAILY 05/09/19 04/05/22 [Vitamin B-12 (100mcg tab)] amLODIPine [Norvasc] 10 mg PO DAILY 04/06/21 04/05/22 Magnesium Oxide [Mag Ox] 400 mg PO DAILY #14 tablet 07/19/21 04/05/22 Pregabalin [Lyrica] 25 mg PO DAILY 12/21/21 04/05/22 Solifenacin Succinate [Vesicare] 5 mg PO DAILY 12/21/21 04/05/22 Apixaban [Eliquis] 5 mg PO BID 30 Days #60 tablet 12/26/21 04/05/22 Furosemide [Lasix] 20 mg PO BID 7 Days #14 tablet 12/26/21 04/05/22 Metoprolol Succinate [Toprol Xl] 25 mg PO DAILY 30 Days #30 tablet 12/26/21 04/05/22 Sulfamethox/Trimeth 800/160 1 each PO BID #14 tablet 04/05/22 [Bactrim Ds 800/160] - Allergies Allergies/Adverse Reactions: Allergies Allergy/AdvReac Type Severity Reaction Status Date / Time No Known Drug Allergies Allergy Verified 04/05/22 00:14 - Social History Does the pt smoke?: No Smoking Status: Never smoker Does the pt drink ETOH?: No Does the pt have substance abuse?: No - Immunizations Immunizations are current?: Yes - POLST Patient has POLST: Yes POLST Status: DNR (directive on the fridge door) PD ED PE NORMAL - Vitals Vital signs reviewed: Yes - General General: Alert and oriented X 3, No acute distress, Well developed/nourished - HEENT HEENT: Atraumatic, PERRL, EOMI, Moist mucous membranes - Neck Neck: Supple, no meningeal sign, No bony TTP - Cardiac Cardiac: No murmur, Strong equal pulses, Other (Mildly bradycardic, irregularly irregular rate and rhythm.) - Respiratory Respiratory: No respiratory distress, Clear bilaterally - Abdomen Abdomen: Soft, Non tender, Non distended - Back Back: No spinal TTP - Derm Derm: Normal color, Warm and dry, No rash - Extremities Extremities: No deformity, No edema, No calf tenderness / cord - Neuro Neuro: Alert and oriented X 3, 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, No motor deficit, No sensory deficit, Normal speech, Other (No focal deficits) - Psych Psych: Normal mood, Normal affect Results - Vitals Vitals: Oxygen O2 Source Room air - EKG (time done) 0027 Rate: Rate (enter#) (46) Rhythm: Atrial fibrillation Lucas: Normal Intervals: RBBB QRS: Normal Ischemia: Normal ST segments Compare to prior EKG: Old EKG unavailable Computer interpretation: Agree with computer - Labs Labs: Microbiology 04/05/22 04:18 Urine Culture - Final Urine,Clean Catch Escherichia Coli Laboratory Tests 04/05/22 04/05/22 04/05/22 00:15 00:15 00:15 WBC 11.2 H RBC 3.94 L Hgb 11.3 L Hct 35.8 L MCV 90.9 MCH 28.7 MCHC 31.6 L RDW 16.9 H Plt Count 283 MPV 10.0 Neut # (Auto) 8.4 H Lymph # (Auto) 1.1 L [place] # (Auto) 1.1 H Eos # (Auto) 0.6 Baso # (Auto) 0.1 Absolute Nucleated RBC 0.00 Nucleated RBC % 0.0 Sodium 140 Potassium 4.7 Chloride 103 Carbon Dioxide 24 Anion Gap 13.0 BUN 44 H Creatinine 1.8 H Estimated GFR (MDRD) 27 L Glucose 109 H Calcium 9.8 Total Bilirubin 0.7 AST 18 ALT 14 Alkaline Phosphatase 70 B-Natriuretic Peptide 581 H Total Protein 7.1 Albumin 3.9 Globulin 3.2 Albumin/Globulin Ratio 1.2 Lipase 32 Urine Color Urine Clarity Urine pH Ur Specific [place] Urine Protein Urine Glucose (UA) Urine Ketones Urine Occult Blood Urine Nitrite Urine Bilirubin Urine Urobilinogen Ur Leukocyte Esterase Urine RBC Urine WBC Ur Squamous Epith Cells Urine Bacteria Ur Microscopic Review Urine Culture Comments 04/05/22 04:18 WBC RBC Hgb Hct MCV MCH MCHC RDW Plt Count MPV Neut # (Auto) Lymph # (Auto) [place] # (Auto) Eos # (Auto) Baso # (Auto) Absolute Nucleated RBC Nucleated RBC % Sodium Potassium Chloride Carbon Dioxide Anion Gap BUN Creatinine Estimated GFR (MDRD) Glucose Calcium Total Bilirubin AST ALT Alkaline Phosphatase B-Natriuretic Peptide Total Protein Albumin Globulin Albumin/Globulin Ratio Lipase Urine Color YELLOW Urine Clarity SL. CLOUDY Urine pH 6.5 Ur Specific [place] 1.010 Urine Protein NEGATIVE Urine Glucose (UA) NEGATIVE Urine Ketones NEGATIVE Urine Occult Blood NEGATIVE Urine Nitrite POSITIVE H Urine Bilirubin NEGATIVE Urine Urobilinogen 0.2 (NORMAL) Ur Leukocyte Esterase TRACE H Urine RBC None Seen Urine WBC 4-5 Ur Squamous Epith Cells FEW Squamous Urine Bacteria Many H Ur Microscopic Review INDICATED Urine Culture Comments INDICATED PD MEDICAL DECISION MAKING - ED course Complexity details: reviewed results, re-evaluated patient, considered differential, d/w patient ED course: The patient was treated with IV fluids and worked up with labs and urinalysis. Urinalysis showed evidence of infection and patient was started on antibiotics for this. The patient was persistently bradycardic in the 40s to 50s with a monitor reading showing A. fib. EKG showed no evidence of ischemia. The patient was given atropine without any improvement in the heart rate. After receiving IV fluids and the antibiotics, the patient was gotten up to ambulate and had no lightheadedness or weakness. She ambulated without difficulty through the emergency department. I felt she was stable for discharge home. We have discussed the need for follow-up and the usual indications for return. The patient's daughter is come to get her and will help her at home. The patient does also have home health 5 days a week during the day who can also assist. We have discussed that the patient should discuss with her outpatient physicians whether she should still be on metoprolol, given her bradycardia. Departure - Departure Disposition: Home, Self Care Clinical Impression: Generalized weakness, Bradycardia, Chronic atrial fibrillation UTI (urinary tract infection) Qualifiers: Urinary tract infection type: acute cystitis Hematuria presence: without hematuria Qualified Code(s): N30.00 - Acute cystitis without hematuria Condition: Stable Instructions: ED Bradycardia, ED UTI Cystitis Female Prescriptions: Sulfamethox/Trimeth 800/160 [Bactrim Ds 800/160] 1 each PO BID #14 tablet Comments: Your blood tests showed that you were somewhat dehydrated today, and you have been treated for this in the emergency department. Your urinalysis showed infection and you have also been started on antibiotics. Your heart rate has been a bit low, although not dangerously so, and it is possible that this is contributing to your sense of weakness. Please talk to your doctor about whether or not your metoprolol dose should be decreased again. For now, please hold your next dose of metoprolol. If you find that you feel remarkably better in the next 24 hours after holding the dose, then The lower heart rate may be part of the weakness. Please be sure you get plenty of fluids to drink so that you do not get dehydrated again. Take all of your antibiotics, as directed, until the course is complete. Discharge Date/Time: 04/05/22 06:45
[2022-04-05 04:25] LABS: BILIRUBIN,URINE NEGATIVE (NEGATIVE); GLUCOSE, URINE (UA) NEGATIVE (NEGATIVE); KETONES,URINE (UA) NEGATIVE (NEGATIVE); NITRITE,URINE POSITIVE (NEGATIVE); OCCULT BLOOD,URINE NEGATIVE (NEGATIVE); PH,URINE 6.5 PH (5.0-7.5); PROTEIN,URINE NEGATIVE (NEGATIVE); UROBILINOGEN,URINE 0.2 (NORMAL) E.U./dL (NORMAL)
[2022-04-05 04:32] LABS: BACTERIA,URINE Many /HPF (None Seen); CLARITY,URINE SL. CLOUDY (CLEAR); LEUKOCYTE ESTERASE, URINE TRACE (NEGATIVE); RBC,URINE None Seen /HPF (0-5); SQUAMOUS EPITHELIAL CELL,UR FEW Squamous (<= Few)
[2022-04-05] MEDS ORDERED: SULFAMETH/TRIMETH DS 800/160 MG TABLET PO STA (05:10)
[2022-04-05 05:34] VITALS: BP 129/55
== END 2022-04-05 06:45 | disposition home or self-care (01) ==
LOC: ED 00:02
DX: R53.1 Weakness (principal); I11.0 Hypertensive heart disease with heart failure; I50.9 Heart failure, unspecified; E11.42 Type 2 diabetes mellitus with diabetic polyneuropathy; Z79.4 Long term (current) use of insulin; Z79.82 Long term (current) use of aspirin; N30.00 Acute cystitis without hematuria; I48.20 Chronic atrial fibrillation, unspecified
CPT/HCPCS: 36415; 80053; 81001; 83690; 83880; 85025; 87086; 87181; 93005; 96374; 99283; 99284; A9270; 81003

== ENCOUNTER 2022-05-10 15:22 | Emergency (ER) | payer MEDICARE, MEDICAID ==
[2022-05-10] MEDS ORDERED: PREGABALIN 25 MG CAPSULE PO STA (15:29)
--- NOTE | 2022-05-10 15:32 | ED Physician Documentation ---
PD HPI Fall - Stated complaint Stated Complaint: GLF - History obtained from History obtained from: Patient, EMS - Additional information Additional information: 81-year-old woman with history of diabetes, coronary disease status post remote bypass and multiple other medical comorbidities has been feeling generally ill with weakness and poor appetite for the last 3 days. Yesterday she went into the kitchen thinking she should eat before protestant and her legs gave out from her and she landed on her low back which hurts. She also hit her head on the refrigerator on the way down. No loss of consciousness. When queried as to whether she has a headache she vacillates but eventually says yes. She would like something for the pain, she did not take her Lyrica this morning and would like a dose of that. She has some chest pressure since midday yesterday. She denies trouble breathing. No abdominal pain. She has been somewhat constipated. Review of Systems Ten Systems: 10 systems reviewed and negative Constitutional: reports: Fatigue. denies: Fever, Chills Cardiac: reports: Chest pain / pressure. denies: Palpitations Respiratory: denies: Dyspnea, Cough GI: reports: Constipation. denies: Abdominal Pain, Nausea, Vomiting, Diarrhea, Hematemesis, Bloody / black stool : reports: Frequency PD PAST MEDICAL HISTORY - Past Medical History Cardiovascular: Congestive heart failure, Hypertension, High cholesterol, Coronary artery disease, Peripheral Vascular Disease, Atrial fibrillation, Murmur, Other Respiratory: Sleep apnea, CPAP use Neuro: Dementia, CVA, Peripheral neuropathy, Other Endocrine/Autoimmune: Type 2 diabetes, HyPOthyroidism GI: GERD, GI bleed, Chronic constipation, Hemorrhoids : Incontinence, Chronic bladder infection, Kidney stones HEENT: Chronic vision loss Psych: Depression, Anxiety Musculoskeletal: Osteoarthritis, Gout, Chronic back pain Derm: Other - Past Surgical History Past Surgical History: Yes Ortho: Rotator cuff repair, 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 surgery /[employer]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 Cardiovascular: CABG, Coronary stent HEENT: Tonsil/Adenoidectomy, Other - Present Medications Home Medications: Ambulatory Orders Medication Instructions Recorded Confirmed Metformin HCl 1,000 mg PO BIDWM 04/21/14 05/10/22 Insulin Glargine [Lantus] 25 unit SUBQ DAILY 09/04/14 05/10/22 Aspirin [Aspir 81] 81 mg PO DAILY 09/19/14 05/10/22 Losartan [Cozaar] 100 mg PO DAILY 09/19/14 05/10/22 Pregabalin [Lyrica] 50 mg PO QPM 09/19/14 05/10/22 Atorvastatin Calcium [Lipitor] 40 mg PO QPM 12/31/14 05/10/22 Insulin Lispro [Humalog] 6 units SQ TIDWM 12/31/14 05/10/22 Cyanocobalamin (Vitamin B-12) 1,000 mcg PO DAILY 05/09/19 04/05/22 [Vitamin B-12 (100mcg tab)] amLODIPine [Norvasc] 10 mg PO DAILY 04/06/21 05/10/22 Magnesium Oxide [Mag Ox] 400 mg PO DAILY #14 tablet 07/19/21 05/10/22 Solifenacin Succinate [Vesicare] 5 mg PO DAILY 12/21/21 05/10/22 Apixaban [Eliquis] 5 mg PO BID 30 Days #60 tablet 12/26/21 05/10/22 Furosemide [Lasix] 20 mg PO BID 7 Days #14 tablet 12/26/21 05/10/22 Metoprolol Succinate [Toprol Xl] 12.5 mg PO DAILY 05/10/22 05/10/22 Nitroglycerin [Nitrostat] 0.4 mg SL [id number] PRN 05/10/22 05/10/22 Spironolactone [Aldactone] 12.5 mg PO DAILY 05/10/22 05/10/22 - Allergies Allergies/Adverse Reactions: Allergies Allergy/AdvReac Type Severity Reaction Status Date / Time No Known Drug Allergies Allergy Verified 05/10/22 15:31 - Social History Does the pt smoke?: No Smoking Status: Never smoker Does the pt drink ETOH?: No Does the pt have substance abuse?: No - Immunizations Immunizations are current?: Yes - POLST Patient has POLST: Yes POLST Status: DNR (directive on the fridge door) PD ED PE NORMAL - Vitals Vital signs reviewed: Yes - General General: Alert and oriented X 3, No acute distress - HEENT HEENT: PERRL, EOMI - Neck Neck: Supple, no meningeal sign, No bony TTP - Cardiac Cardiac: No murmur, Strong equal pulses, Other (irregular) - Abdomen Abdomen: Normal bowel sounds, Soft, Non tender - Back Back: No CVA TTP, No spinal TTP - Derm Derm: Normal color, Warm and dry - Extremities Extremities: No edema, No calf tenderness / cord - Neuro Neuro: Alert and oriented X 3, Normal speech - Psych Psych: Normal mood, Normal affect Results - Vitals Vitals: Vital Signs - 24 hr 05/10/22 05/10/22 05/10/22 15:27 16:25 17:17 Temperature 36.8 C Heart Rate 63 75 61 Respiratory 22 16 15 Rate Blood Pressure 146/74 H 143/114 H 137/109 H O2 Saturation 96 100 95 05/10/22 05/10/22 19:03 19:57 Temperature Heart Rate 43 L 47 L Respiratory 19 14 Rate Blood Pressure 127/94 H 145/61 H O2 Saturation 93 96 Oxygen O2 Source Room air - EKG (time done) 1543 Rate: Rate (enter#) (67) Rhythm: Atrial fibrillation Intervals: RBBB Ischemia: Q waves (inferior) Compare to prior EKG: Changed from prior EKG (Compared with April 05 her rate has increased, otherwise no change) - Labs Labs: Laboratory Tests 05/10/22 05/10/22 05/10/22 15:34 15:34 15:34 WBC 12.3 H RBC 4.23 Hgb 12.5 Hct 38.4 MCV 90.8 MCH 29.6 MCHC 32.6 RDW 17.2 H Plt Count 254 MPV 10.1 Neut # (Auto) 10.1 H Lymph # (Auto) 1.0 L [place] # (Auto) 0.9 Eos # (Auto) 0.1 Baso # (Auto) 0.1 Absolute Nucleated RBC 0.00 Nucleated RBC % 0.0 Sodium 137 Potassium 4.1 Chloride 101 Carbon Dioxide 24 Anion Gap 12.0 BUN 45 H Creatinine 2.0 H Estimated GFR (MDRD) 24 L Glucose 211 H Lactic Acid Calcium 10.1 Total Bilirubin 1.4 H AST 42 ALT 15 Alkaline Phosphatase 77 Troponin I High Sens 8455.5 H* Total Protein 8.0 Albumin 4.3 Globulin 3.7 Albumin/Globulin Ratio 1.2 SARS-CoV-2 (PCR) 05/10/22 05/10/22 15:34 16:40 WBC RBC Hgb Hct MCV MCH MCHC RDW Plt Count MPV Neut # (Auto) Lymph # (Auto) [place] # (Auto) Eos # (Auto) Baso # (Auto) Absolute Nucleated RBC Nucleated RBC % Sodium Potassium Chloride Carbon Dioxide Anion Gap BUN Creatinine Estimated GFR (MDRD) Glucose Lactic Acid 2.7 H Calcium Total Bilirubin AST ALT Alkaline Phosphatase Troponin I High Sens Total Protein Albumin Globulin Albumin/Globulin Ratio SARS-CoV-2 (PCR) NOT DETECTED PD MEDICAL DECISION MAKING - ED course ED course: 81-year-old woman with history of coronary disease presents with 2 days of chest pressure, generalized weakness culminating in a fall and potential head injury. Sent from the clinic and leveled as a modified trauma on arrival given that she is anticoagulated although she has not had any of her usual meds today. Work-up demonstrates a nonischemic EKG but she is having active chest pressure in the setting of a troponin of 8400. This is consistent with non-STEMI. She was given Lovenox, oral metoprolol, aspirin, Nitropaste. Her glove examiner is Dr. Valverde associated with [facility] and they were called for potential t ransfer given lack of cardiology services here around 4:25 PM. I spoke with Dr. Delatorre, cardiology in [place] at [id number], defers to The hospitalist for admission Excepted by ETHYL BLENDER Coco Hernandez at 5:32 PM. [place] are completed. - Critical Care Time(min): 35 Time Includes: Direct patient care, Review records, Reassess patient, Document care, Coordinate care, Medical consult Data interpretation: Labs, Pulse ox Procedures included in critical care time: Peripheral IV Procedures excluded from critical care time: EKG Departure - Departure Disposition: 02 Transfer Acute Care Hosp Clinical Impression: NSTEMI (non-ST elevated myocardial infarction) Condition: Serious
[2022-05-10 15:44] LABS: BASOPHILS # (AUTO) 0.1 10^3/uL (0.0-0.1); BASOPHILS % (AUTO) 0.5 %; EOSINOPHILS # (AUTO) 0.1 10^3/uL (0.0-0.7); EOSINOPHILS % (AUTO) 0.9 %; HCT - HEMATOCRIT 38.4 % (37.0-47.0); HGB - HEMOGLOBIN 12.5 g/dL (12.0-16.0); LYMPHOCYTES % (AUTO) 8.2 %; MEAN CORPUSCULAR HEMOGLOBIN 29.6 pg (27.0-31.0); MEAN CORPUSCULAR HGB CONC 32.6 g/dL (32.0-36.0); MEAN CORPUSCULAR VOLUME 90.8 fL (81.0-99.0); MEAN PLATELET VOLUME 10.1 fL (7.9-10.8); MONOCYTES # (AUTO) 0.9 10^3/uL (0.0-1.0); MONOCYTES % (AUTO) 7.5 %; NEUTROPHILS # (AUTO) 10.1 10^3/uL (1.5-6.6); NEUTROPHILS % (AUTO) 82.3 %; PLT - PLATELET COUNT 254 10^3/uL (130-450); RED BLOOD COUNT 4.23 10^6/uL (4.20-5.40); RED CELL DISTRIBUTION WIDTH 17.2 % (12.0-15.0); WHITE BLOOD COUNT 12.3 x10^3/uL (4.8-10.8)
[2022-05-10 15:54] LABS: ALBUMIN 4.3 g/dL (3.2-5.5); ALBUMIN/GLOBULIN RATIO 1.2 (1.0-2.2); BILIRUBIN,TOTAL 1.4 mg/dL (0.2-1.0); CALCIUM 10.1 mg/dL (8.5-10.3); POTASSIUM 4.1 mmol/L (3.5-5.0)
[2022-05-10] MEDS ORDERED: ASPIRIN CHEW 81 MG TABLET PO STA (16:08)
[2022-05-10] MEDS ORDERED: METOPROLOL TARTRATE 50 MG TABLET PO STA (16:08)
[2022-05-10] MEDS ORDERED: ENOXAPARIN 80 MG/0.8 ML SYRINGE SUBQ STA (16:08)
--- NOTE | 2022-05-10 16:20 | CT Report ---
PROCEDURE: HEAD WO INDICATIONS: Head injury. TECHNIQUE: Noncontrast 4.5 mm thick angled axial sections acquired from the foramen magnum to the vertex. For r adiation dose reduction, the following was used: automated exposure control, adjustment of mA and/or kV according to patient size. COMPARISON: None FINDINGS: Image quality: Excellent. CSF spaces: Basal cisterns are patent. No extra-axial fluid collections. The ventricles are symmet doug in size and shape. Brain: No intracranial bleeds or masses. There is cerebral volume loss for age, with resultant vent ricular and sulcal prominence. There are periventricular and deep white matter chronic small vessel ischemic changes. There is intracranial internal carotid artery and vertebral artery atherosclerosis . Skull and face: Calvarium and visualized facial bones appear intact, without suspicious lesions. Sinuses: Visualized sinuses and mastoids are clear. IMPRESSION: No acute intracranial disease process. Reviewed by: Kamilah Koenig MD, PhD on 05/10/2022 4:18 PM PDT Approved by: Kamilah Koenig MD, PhD on 05/10/2022 4:18 PM PDT Station ID: [id number]
[2022-05-10] MEDS ORDERED: NITROGLYCERIN 2% PASTE TOP STA (16:28)
--- NOTE | 2022-05-10 17:00 | CT Report ---
PROCEDURE: Abdomen/Pelvis WO INDICATIONS: back inj TECHNIQUE: Noncontrast 5 mm thick sections acquired from the diaphragms to the symphysis. 5 mm coronal and sagi ttal reformats were then performed. For radiation dose reduction, the following was used: automated exposure control, adjustment of mA and/or kV according to patient size. COMPARISON: CT abdomen and pelvis with contrast, 04/18/2017 and 10/30/2015. FINDINGS: Image quality: Excellent. ABDOMEN: Lung bases: Patchy groundglass infiltrates at lung bases bilaterally.. Heart size is normal. Severe coronary artery calcification. Small hiatal hernia. Solid organs: Liver and spleen are normal in size. There are calcified granulomas in liver and splee n. Gallbladder contains small gallstones. Pancreas is normal in contours. No adrenal nodules. Kidneys are normal in size, without hydronephrosis or nephrolithiasis. There is a 1.6 cm angiomyolip alexa in the posterior medial cortex of the left kidney. A 6 cm simple appearing cyst is noted in the i nferior pole of right kidney. Peritoneum and bowel: There is a large amount of stool in colon. A few colonic diverticula present. No CT findings to suggest acute diverticulitis. Normal appendix. Unenhanced bowel loops demonstrate n ormal wall thickness and caliber. No free fluid or air. Nodes and vessels: No retroperitoneal or mesenteric adenopathy by size criteria. Aorta and inferior vena cava are normal in caliber. Severe atherosclerotic calcifications. Miscellaneous: A small fat-containing umbilical hernia is noted. PELVIS: Genitourinary: Bladder wall thickness is normal. There are calcified uterine fibroids. Ovaries are unremarkable. No pathological free fluid in the cul-de-sac. Miscellaneous: No inguinal hernias or adenopathy. Bones: No suspicious bony lesions. No vertebral body compression fractures. Severe degenerative ch anges in lumbar spine. IMPRESSION: 1. No acute abnormalities in abdomen or pelvis. 2. Cholelithiasis. 3. Mild diverticulosis. No diverticulitis. 4. 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 5. A large simple appearing right renal cyst. 6. Calcified granulomas in liver and spleen. 7. Small hiatal hernia. 8. Patchy groundglass infiltrates at lung bases bilaterally, consistent with pneumonitis or pneumonia . 9. Severe atherosclerosis coronary arteries and aorta. Reviewed by: Debbie Olmos MD on 05/10/2022 4:58 PM PDT Approved by: Debbie Olmos MD on 05/10/2022 4:58 PM PDT Station ID: [id number]
[2022-05-10] MEDS ORDERED: MORPHINE 2 MG/ML CARPUJECT IVP STA (17:36)
[2022-05-10 21:06] VITALS: BP 133/82
== END 2022-05-10 21:07 | disposition short-term general hospital (02) ==
LOC: EDUNIT# → ED 15:22
DX: I21.4 Non-ST elevation (NSTEMI) myocardial infarction (principal); Z66 Do not resuscitate; Z20.822 Contact with and (suspected) exposure to COVID-19
CPT/HCPCS: 36415; 70450; 74176; 80053; 83605; 84484; 85025; 87635; 93005; 96372; 96374; 99285; 99291; A9270; J1650

== ENCOUNTER → 2022-05-10 | Outpatient (CLI) | payer MEDICARE, MEDICAID | END | disposition critical access hospital (66) | LOC: EMS 14:58 | DX: R53.1 Weakness (principal); I48.91 Unspecified atrial fibrillation; R63.0 Anorexia | CPT/HCPCS: A0425; A0429 ==

== ENCOUNTER 2022-07-14 09:38 | Outpatient (CLI) | payer MEDICARE, MEDICAID ==
[2022-07-14 11:49] LABS: BASOPHILS # (AUTO) 0.1 10^3/uL (0.0-0.1); BASOPHILS % (AUTO) 0.7 %; EOSINOPHILS # (AUTO) 0.3 10^3/uL (0.0-0.7); EOSINOPHILS % (AUTO) 3.2 %; HCT - HEMATOCRIT 32.9 % (37.0-47.0); HGB - HEMOGLOBIN 10.9 g/dL (12.0-16.0); LYMPHOCYTES # (AUTO) 1.2 10^3/uL (1.5-3.5); LYMPHOCYTES % (AUTO) 14.7 %; MEAN CORPUSCULAR HEMOGLOBIN 30.2 pg (27.0-31.0); MEAN CORPUSCULAR HGB CONC 33.1 g/dL (32.0-36.0); MEAN CORPUSCULAR VOLUME 91.1 fL (81.0-99.0); MEAN PLATELET VOLUME 10.7 fL (7.9-10.8); MONOCYTES # (AUTO) 0.7 10^3/uL (0.0-1.0); MONOCYTES % (AUTO) 8.7 %; NEUTROPHILS # (AUTO) 5.9 10^3/uL (1.5-6.6); NEUTROPHILS % (AUTO) 72.6 %; PLT - PLATELET COUNT 276 10^3/uL (130-450); RED BLOOD COUNT 3.61 10^6/uL (4.20-5.40); RED CELL DISTRIBUTION WIDTH 15.9 % (12.0-15.0); WHITE BLOOD COUNT 8.1 x10^3/uL (4.8-10.8)
[2022-07-14 12:24] LABS: CALCIUM 10.4 mg/dL (8.5-10.3); CREATININE 2.2 mg/dL (0.4-1.0); POTASSIUM 4.4 mmol/L (3.5-5.0)
== END 2022-07-14 09:39 | disposition home or self-care (01) ==
LOC: LAB.N 09:38
PROVIDERS: ATTEND Family Medicine
DX: N18.32 Chronic kidney disease, stage 3b (principal)
CPT/HCPCS: 36415; 80048; 82728; 83540; 84466; 85025

== ENCOUNTER 2022-07-17 20:50 | Outpatient (CLI) | payer MEDICARE, MEDICAID | END 2022-07-17 20:51 | disposition critical access hospital (66) | LOC: EMS 20:50 | DX: Z04.3 Encounter for examination and observation following other accident (principal) | CPT/HCPCS: A0425; A0429 ==

== ENCOUNTER 2022-07-17 21:10 | Emergency (ER) | payer MEDICARE, MEDICAID ==
--- NOTE | 2022-07-17 21:17 | ED Physician Documentation ---
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 She says she fell because "my legs gave out from under me" (per patient), and she says this happens from time to time with her (not a new problem). She denies injury, denies pain. She is on eliquis for atrial fibrillation. Review of Systems Constitutional: reports: Reviewed and negative Cardiac: reports: Reviewed and negative Respiratory: reports: Reviewed and negative GI: reports: Reviewed and negative : denies: Dysuria, Frequency Musculoskeletal: reports: Reviewed and negative Neurologic: reports: Reviewed and negative PD PAST MEDICAL HISTORY - Past Medical History Cardiovascular: Congestive heart failure, Hypertension, High cholesterol, Rios ry artery disease, Peripheral Vascular Disease, Atrial fibrillation, Murmur, Other Respiratory: Sleep apnea, CPAP use Neuro: Dementia, CVA, Peripheral neuropathy, Other Endocrine/Autoimmune: Type 2 diabetes, HyPOthyroidism GI: GERD, GI bleed, Chronic constipation, Hemorrhoids : Incontinence, Chronic bladder infection, Kidney stones HEENT: Chronic vision loss Psych: Depression, Anxiety Musculoskeletal: Osteoarthritis, Gout, Chronic back pain Derm: Other - Past Surgical History Past Surgical History: Yes Ortho: Rotator cuff repair, 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 Cardiovascular: CABG, Coronary stent HEENT: Tonsil/Adenoidectomy, Other - Present Medications Home Medications: Ambulatory Orders Medication Instructions Recorded Confirmed Metformin HCl 1,000 mg PO BIDWM 04/21/14 05/10/22 Insulin Glargine [Lantus] 25 unit SUBQ DAILY 09/04/14 05/10/22 Aspirin [Aspir 81] 81 mg PO DAILY 09/19/14 05/10/22 Losartan [Cozaar] 100 mg PO DAILY 09/19/14 05/10/22 Pregabalin [Lyrica] 50 mg PO QPM 09/19/14 05/10/22 Atorvastatin Calcium [Lipitor] 40 mg PO QPM 12/31/14 05/10/22 Insulin Lispro [Humalog] 6 units SQ TIDWM 12/31/14 05/10/22 Cyanocobalamin (Vitamin B-12) 1,000 mcg PO DAILY 05/09/19 04/05/22 [Vitamin B-12 (100mcg tab)] amLODIPine [Norvasc] 10 mg PO DAILY 04/06/21 05/10/22 Magnesium Oxide [Mag Ox] 400 mg PO DAILY #14 tablet 07/19/21 05/10/22 Solifenacin Succinate [Vesicare] 5 mg PO DAILY 12/21/21 05/10/22 Apixaban [Eliquis] 5 mg PO BID 30 Days #60 tablet 12/26/21 05/10/22 Furosemide [Lasix] 20 mg PO BID 7 Days #14 tablet 12/26/21 05/10/22 Metoprolol Succinate [Toprol Xl] 12.5 mg PO DAILY 05/10/22 05/10/22 Nitroglycerin [Nitrostat] 0.4 mg SL [id number] PRN 05/10/22 05/10/22 Spironolactone [Aldactone] 12.5 mg PO DAILY 05/10/22 05/10/22 Nitrofurantoin [Macrobid] 100 mg PO BID #10 cap 07/18/22 - Allergies Allergies/Adverse Reactions: Allergies Allergy/AdvReac Type Severity Reaction Status Date / Time No Known Drug Allergies Allergy Verified 07/17/22 21:18 - Social History Does the pt smoke?: No Smoking Status: Never smoker Does the pt drink ETOH?: No Does the pt have substance abuse?: No - Immunizations Immunizations are current?: Yes - POLST Patient has POLST: Yes POLST Status: DNR (directive on the fridge door) PD ED PE NORMAL - Vitals Vital signs reviewed: Yes - General General: Alert and oriented X 3, No acute distress, Well developed/nourished - HEENT HEENT: Atraumatic, PERRL, EOMI, Moist mucous membranes - Cardiac Cardiac: RRR, No murmur - Respiratory Respiratory: No respiratory distress, Clear bilaterally - Abdomen Abdomen: Soft, Non tender, Non distended - Back Back: No spinal TTP - Derm Derm: Normal color, Warm and dry - Neuro Neuro: Alert and oriented X 3, 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 Laboratory Tests 07/17/22 07/17/22 07/17/22 21:26 21:26 22:06 WBC 8.3 RBC 3.48 L Hgb 10.4 L Hct 31.8 L MCV 91.4 MCH 29.9 MCHC 32.7 RDW 16.2 H Plt Count 263 MPV 10.1 Neut # (Auto) 6.4 Lymph # (Auto) 0.9 L [place] # (Auto) 0.9 Eos # (Auto) 0.1 Baso # (Auto) 0.0 Absolute Nucleated RBC 0.00 Nucleated RBC % 0.0 Sodium 140 Potassium 4.1 Chloride 103 Carbon Dioxide 27 Anion Gap 10.0 BUN 47 H Creatinine 2.3 H Estimated GFR (MDRD) 20 L Glucose 91 POC Whole Bld Glucose 93 Calcium 10.1 Total Bilirubin 0.8 AST 14 ALT 13 Alkaline Phosphatase 65 Total Protein 7.0 Albumin 3.9 Globulin 3.1 Albumin/Globulin Ratio 1.3 Lipase 30 Urine Color Urine Clarity Urine pH Ur Specific [place] Urine Protein Urine Glucose (UA) Urine Ketones Urine Occult Blood Urine Nitrite Urine Bilirubin Urine Urobilinogen Ur Leukocyte Esterase Urine RBC Urine WBC Ur Epithelial Cells Ur Squamous Epith Cells Urine Bacteria Ur Microscopic Review Urine Culture Comments 07/17/22 22:32 WBC RBC Hgb Hct MCV MCH MCHC RDW Plt Count MPV Neut # (Auto) Lymph # (Auto) [place] # (Auto) Eos # (Auto) Baso # (Auto) Absolute Nucleated RBC Nucleated RBC % Sodium Potassium Chloride Carbon Dioxide Anion Gap BUN Creatinine Estimated GFR (MDRD) Glucose POC Whole Bld Glucose Calcium Total Bilirubin AST ALT Alkaline Phosphatase Total Protein Albumin Globulin Albumin/Globulin Ratio Lipase Urine Color YELLOW Urine Clarity CLOUDY Urine pH 8.0 H Ur Specific [place] 1.015 Urine Protein NEGATIVE Urine Glucose (UA) NEGATIVE Urine Ketones NEGATIVE Urine Occult Blood TRACE-INTA Urine Nitrite NEGATIVE Urine Bilirubin NEGATIVE Urine Urobilinogen 0.2 (NORMAL) Ur Leukocyte Esterase LARGE H Urine RBC 0-5 Urine WBC >25 H Ur Epithelial Cells FEW Transitional Ur Squamous Epith Cells FEW Squamous Urine Bacteria Many H Ur Microscopic Review INDICATED Urine Culture Comments INDICATED - Rads (name of study) CT head Radiology: Prelim report reviewed, See rad report CT cervical spine Radiology: Prelim report reviewed, See rad report PD MEDICAL DECISION MAKING - ED course Complexity details: reviewed old records, reviewed results, re-evaluated [facility] [place], considered differential, d/w patient ED course: unremarkable test results tonight with what is likely an incidentally found UTI but given strongly positive findings (s/o UTI) on UA, will treat with macrobid. Departure - Departure Disposition: 01 Home, Self Care Clinical Impression: Weakness Urinary tract infection Qualifiers: Urinary tract infection type: acute cystitis Hematuria presence: without hematuria Qualified Code(s): N30.00 - Acute cystitis without hematuria Condition: Good Instructions: ED UTI Cystitis Female, ED Weakness UKO Prescriptions: Nitrofurantoin [Macrobid] 100 mg PO BID #10 cap Comments: The results of tonight's tests have no concerning acute abnormalities. Your kidney tests are abnormal, reflecting mildly decreased kidney function, but no significant change compared to previous results. Your urinalysis is suggestive of a urinary tract infection and a prescription for an antibiotic has been electronically submitted to [facility] in [place] Discharge Date/Time: 07/18/22 01:07
[2022-07-17 21:43] LABS: BASOPHILS % (AUTO) 0.4 %; EOSINOPHILS # (AUTO) 0.1 10^3/uL (0.0-0.7); EOSINOPHILS % (AUTO) 1.7 %; HCT - HEMATOCRIT 31.8 % (37.0-47.0); HGB - HEMOGLOBIN 10.4 g/dL (12.0-16.0); LYMPHOCYTES # (AUTO) 0.9 10^3/uL (1.5-3.5); LYMPHOCYTES % (AUTO) 10.3 %; MEAN CORPUSCULAR HEMOGLOBIN 29.9 pg (27.0-31.0); MEAN CORPUSCULAR HGB CONC 32.7 g/dL (32.0-36.0); MEAN CORPUSCULAR VOLUME 91.4 fL (81.0-99.0); MEAN PLATELET VOLUME 10.1 fL (7.9-10.8); MONOCYTES # (AUTO) 0.9 10^3/uL (0.0-1.0); MONOCYTES % (AUTO) 10.8 %; NEUTROPHILS # (AUTO) 6.4 10^3/uL (1.5-6.6); NEUTROPHILS % (AUTO) 76.6 %; PLT - PLATELET COUNT 263 10^3/uL (130-450); RED BLOOD COUNT 3.48 10^6/uL (4.20-5.40); RED CELL DISTRIBUTION WIDTH 16.2 % (12.0-15.0); WHITE BLOOD COUNT 8.3 x10^3/uL (4.8-10.8)
[2022-07-17 21:51] LABS: ALBUMIN 3.9 g/dL (3.2-5.5); ALBUMIN/GLOBULIN RATIO 1.3 (1.0-2.2); BILIRUBIN,TOTAL 0.8 mg/dL (0.2-1.0); CALCIUM 10.1 mg/dL (8.5-10.3); CREATININE 2.3 mg/dL (0.4-1.0); POTASSIUM 4.1 mmol/L (3.5-5.0)
--- NOTE | 2022-07-17 22:18 | CT Report ---
PROCEDURE: HEAD WO INDICATIONS: fall, on eliquis TECHNIQUE: Noncontrast 4.5 mm thick angled axial sections acquired from the foramen magnum to the vertex. For r adiation dose reduction, the following was used: automated exposure control, adjustment of mA and/or kV according to patient size. COMPARISON: Prior head CT 06/09/2022. FINDINGS: Image quality: Excellent. CSF spaces: Basal cisterns are patent. No extra-axial fluid collections. Ventricles are normal in size and shape. Brain: No midline shift. No intracranial masses or hemorrhage. [place]ensley-white matter interface is norm al. Skull and face: Calvarium and visualized facial bones are intact, without suspicious lesions. Sinuses: Visualized sinuses and mastoids are clear. IMPRESSION: No trauma found. Mild to moderate microvascular atherosclerotic change in the deep white matter of each hemisphere, stable over time. Reviewed by: Tien Soriano MD on 07/17/2022 10:16 PM PDT Approved by: Tien Soriano MD on 07/17/2022 10:16 PM PDT Station ID: [id number]
--- NOTE | 2022-07-17 22:33 | CT Report ---
PROCEDURE: CERVICAL SPINE WO INDICATIONS: fall, neck pain TECHNIQUE: Noncontrast 3 mm thick sections acquired from the skull base to the T4 level. Sagittal and coronal r eformats were then constructed. For radiation dose reduction, the following was used: automated exp osure control, adjustment of mA and/or kV according to patient size. COMPARISON: None. FINDINGS: Image quality: Excellent. Bones: No fractures or dislocations. Visualized superior ribs are intact. Soft tissues: Prevertebral soft tissues are normal in thickness. No paravertebral hematomas. No ap ical pneumothoraces. IMPRESSION: No trauma found. Moderate to moderately severe degenerative disc disease and facet osteoarthritis is present along the mid cervical spine. No traumatic subluxation is suspected. Reviewed by: Tien Soriano MD on 07/17/2022 10:31 PM PDT Approved by: Tien Soriano MD on 07/17/2022 10:31 PM PDT Station ID: [id number]
[2022-07-17 22:38] LABS: BILIRUBIN,URINE NEGATIVE (NEGATIVE); GLUCOSE, URINE (UA) NEGATIVE (NEGATIVE); KETONES,URINE (UA) NEGATIVE (NEGATIVE); LEUKOCYTE ESTERASE, URINE LARGE (NEGATIVE); NITRITE,URINE NEGATIVE (NEGATIVE); OCCULT BLOOD,URINE TRACE-INTA (NEGATIVE); PROTEIN,URINE NEGATIVE (NEGATIVE); UROBILINOGEN,URINE 0.2 (NORMAL) E.U./dL (NORMAL)
[2022-07-17 22:39] LABS: CLARITY,URINE CLOUDY (CLEAR)
[2022-07-17 22:45] LABS: BACTERIA,URINE Many /HPF (None Seen); EPITHELIAL CELLS,UR FEW Transitional /HPF (<= Few); RBC,URINE 0-5 /HPF (0-5); SQUAMOUS EPITHELIAL CELL,UR FEW Squamous (<= Few); WBC,URINE >25 /HPF (0-5)
[2022-07-18] MEDS ORDERED: NITROFURANTOIN MACRO 100 MG CAPSULE PO STA (00:40)
[2022-07-18 00:47] VITALS: BP 126/53
== END 2022-07-18 01:07 | disposition home or self-care (01) ==
LOC: EDUNIT# → ED 21:10
DX: R53.1 Weakness (principal); N30.00 Acute cystitis without hematuria; Z66 Do not resuscitate
CPT/HCPCS: 36415; 70450; 72125; 80053; 81001; 83690; 85025; 87077; 87086; 87181; 93005; 99283; 99284; A9270; 81003

== ENCOUNTER 2022-08-02 03:17 | Outpatient (CLI) | payer MEDICARE, MEDICAID | END 2022-08-02 03:18 | disposition critical access hospital (66) | LOC: EMS 03:17 | DX: R25.9 Unspecified abnormal involuntary movements (principal); R53.1 Weakness | CPT/HCPCS: A0425; A0429 ==

== ENCOUNTER 2022-08-02 03:35 | Emergency (ER) | payer MEDICARE, MEDICAID ==
[2022-08-02 04:24] LABS: BASOPHILS % (AUTO) 0.2 %; EOSINOPHILS # (AUTO) 0.2 10^3/uL (0.0-0.7); EOSINOPHILS % (AUTO) 1.1 %; HCT - HEMATOCRIT 32.2 % (37.0-47.0); HGB - HEMOGLOBIN 10.9 g/dL (12.0-16.0); LYMPHOCYTES # (AUTO) 0.7 10^3/uL (1.5-3.5); LYMPHOCYTES % (AUTO) 4.3 %; MEAN CORPUSCULAR HGB CONC 33.9 g/dL (32.0-36.0); MEAN CORPUSCULAR VOLUME 91.5 fL (81.0-99.0); MEAN PLATELET VOLUME 9.9 fL (7.9-10.8); MONOCYTES % (AUTO) 5.8 %; NEUTROPHILS # (AUTO) 14.5 10^3/uL (1.5-6.6); NEUTROPHILS % (AUTO) 88.4 %; PLT - PLATELET COUNT 252 10^3/uL (130-450); RED BLOOD COUNT 3.52 10^6/uL (4.20-5.40); RED CELL DISTRIBUTION WIDTH 15.6 % (12.0-15.0); WHITE BLOOD COUNT 16.4 x10^3/uL (4.8-10.8)
[2022-08-02 04:41] LABS: ALBUMIN 4.1 g/dL (3.2-5.5); ALBUMIN/GLOBULIN RATIO 1.2 (1.0-2.2); CREATININE 2.1 mg/dL (0.4-1.0); POTASSIUM 3.5 mmol/L (3.5-5.0); TOTAL PROTEIN 7.5 g/dL (6.7-8.2)
--- NOTE | 2022-08-02 04:51 | ED Physician Documentation ---
PD HPI ALTERED MENTAL STATUS - Stated complaint Stated Complaint: SHAKING,SHIVERING - Chief complaint Chief Complaint: General - History obtained from History obtained from: Patient, EMS - History of Present Illness Timing - onset: How many months ago (1) Timing - duration: Months (1) Timing - details: Gradual onset, Still present (She states she has had general weakness and general body wide tremor for the last month. Its been worsening the past week. No obvious cause.) Quality / character: Other (general weakness and general muscular tremor.) Associated symptoms: Dyspnea, General weakness. No: Fever, Headache, Cough, NVD, Focal weakness Contributing factors: Diabetic. No: Anticoagulated, Recent illness, Recent injury Basline status: Alert and oriented X 3, Walker Similar symptoms before: No diagnosis Recently seen: Clinic, Emergency Dept Review of Systems Constitutional: reports: Myalgias, Fatigue. denies: Fever, Chills Nose: denies: Rhinorrhea / runny nose, Congestion Throat: denies: Sore throat Cardiac: denies: Chest pain / pressure Respiratory: reports: Dyspnea. denies: Cough, Wheezing GI: reports: Nausea. denies: Abdominal Pain, Vomiting, Diarrhea Musculoskeletal: denies: Back pain Neurologic: reports: Generalized weakness. denies: Focal weakness, Near syncope, Headache Endocrine: denies: Weight loss PD PAST MEDICAL HISTORY - Past Medical History Cardiovascular: Congestive heart failure, Hypertension, High cholesterol, Coronary artery disease, Peripheral Vascular Disease, Atrial fibrillation, Murmur, Other Respiratory: Sleep apnea, CPAP use Neuro: Dementia, CVA, Peripheral neuropathy, Other Endocrine/Autoimmune: Type 2 diabetes, HyPOthyroidism GI: GERD, GI bleed, Chronic constipation, Hemorrhoids : Incontinence, Chronic bladder infection, Kidney stones HEENT: Chronic vision loss Psych: Depression, Anxiety Musculoskeletal: Osteoarthritis, Gout, Chronic back pain Derm: Other - Past Surgical History Past Surgical History: Yes Ortho: Rotator cuff repair, 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 Cardiovascular: CABG, Coronary stent HEENT: Tonsil/Adenoidectomy, Other - Present Medications Home Medications: Ambulatory Orders Medication Instructions Recorded Confirmed Metformin HCl 1,000 mg PO BIDWM 04/21/14 05/10/22 Insulin Glargine [Lantus] 25 unit SUBQ DAILY 09/04/14 05/10/22 Aspirin [Aspir 81] 81 mg PO DAILY 09/19/14 05/10/22 Losartan [Cozaar] 100 mg PO DAILY 09/19/14 05/10/22 Pregabalin [Lyrica] 50 mg PO QPM 09/19/14 05/10/22 Atorvastatin Calcium [Lipitor] 40 mg PO QPM 12/31/14 05/10/22 Insulin Lispro [Humalog] 6 units SQ TIDWM 12/31/14 05/10/22 Cyanocobalamin (Vitamin B-12) 1,000 mcg PO DAILY 05/09/19 04/05/22 [Vitamin B-12 (100mcg tab)] amLODIPine [Norvasc] 10 mg PO DAILY 04/06/21 05/10/22 Magnesium Oxide [Mag Ox] 400 mg PO DAILY #14 tablet 07/19/21 05/10/22 Solifenacin Succinate [Vesicare] 5 mg PO DAILY 12/21/21 05/10/22 Apixaban [Eliquis] 5 mg PO BID 30 Days #60 tablet 12/26/21 05/10/22 Furosemide [Lasix] 20 mg PO BID 7 Days #14 tablet 12/26/21 05/10/22 Metoprolol Succinate [Toprol Xl] 12.5 mg PO DAILY 05/10/22 05/10/22 Nitroglycerin [Nitrostat] 0.4 mg SL [id number] PRN 05/10/22 05/10/22 Spironolactone [Aldactone] 12.5 mg PO DAILY 05/10/22 05/10/22 Nitrofurantoin [Macrobid] 100 mg PO BID #10 cap 07/18/22 Primidone [Mysoline] 25 mg PO HS 30 Days #15 tablet 08/02/22 - Allergies Allergies/Adverse Reactions: Allergies Allergy/AdvReac Type Severity Reaction Status Date / Time No Known Drug Allergies Allergy Verified 08/02/22 03:44 - Social History Does the pt smoke?: No Smoking Status: Never smoker Does the pt drink ETOH?: No Does the pt have substance abuse?: No - Immunizations Immunizations are current?: Yes - POLST Patient has POLST: Yes POLST Status: DNR (directive on the fridge door) PD ED PE NORMAL - Vitals Vital signs reviewed: Yes - General General: Alert and oriented X 3, No acute distress, Well developed/nourished - HEENT HEENT: Moist mucous membranes, Pharynx benign - Neck Neck: Supple, no meningeal sign, No adenopathy - Cardiac Cardiac: RRR, No murmur - Respiratory Respiratory: Clear bilaterally - Abdomen Abdomen: Normal bowel sounds, Soft, Non tender, Non distended - Back Back: No CVA TTP - Derm Derm: Normal color, Warm and dry - Extremities Extremities: Normal ROM s pain, No edema, No calf tenderness / cord - Neuro Neuro: Alert and oriented X 3, No motor deficit, No sensory deficit, Normal speech, Other (Resting tremor body wide including trunk. It continues with intention.) Eye Opening: Spontaneous Motor: Obeys Commands Verbal: Oriented GCS Score: 15 Results - Vitals Vitals: Vital Signs - 24 hr 08/02/22 08/02/22 08/02/22 03:35 03:46 05:41 Temperature 37.2 C Heart Rate 85 87 85 Respiratory 17 16 19 Rate Blood Pressure 157/66 H 156/66 H 132/50 H O2 Saturation 97 94 91 L 08/02/22 08/02/22 07:30 07:55 Temperature Heart Rate 79 81 Respiratory 17 18 Rate Blood Pressure 133/41 H 133/41 H O2 Saturation 95 95 Oxygen O2 Source Room air - Labs Labs: Laboratory Tests 08/02/22 08/02/22 08/02/22 04:19 04:19 04:19 WBC 16.4 H RBC 3.52 L Hgb 10.9 L Hct 32.2 L MCV 91.5 MCH 31.0 MCHC 33.9 RDW 15.6 H Plt Count 252 MPV 9.9 Neut # (Auto) 14.5 H Lymph # (Auto) 0.7 L [place] # (Auto) 1.0 Eos # (Auto) 0.2 Baso # (Auto) 0.0 Absolute Nucleated RBC 0.00 Nucleated RBC % 0.0 Sodium 141 Potassium 3.5 Chloride 102 Carbon Dioxide 27 Anion Gap 12.0 BUN 38 H Creatinine 2.1 H Estimated GFR (MDRD) 23 L Glucose 155 H Calcium 10.0 Magnesium 2.0 Total Bilirubin 1.0 AST 19 ALT 14 Alkaline Phosphatase 76 Total Creatine Kinase 48 Total Protein 7.5 Albumin 4.1 Globulin 3.4 Albumin/Globulin Ratio 1.2 Lipase 26 Vitamin B12 2170 H TSH 0.12 L Free T4 Free T3 pg/mL T3 Uptake 08/02/22 04:19 WBC RBC Hgb Hct MCV MCH MCHC RDW Plt Count MPV Neut # (Auto) Lymph # (Auto) [place] # (Auto) Eos # (Auto) Baso # (Auto) Absolute Nucleated RBC Nucleated RBC % Sodium Potassium Chloride Carbon Dioxide Anion Gap BUN Creatinine Estimated GFR (MDRD) Glucose Calcium Magnesium Total Bilirubin AST ALT Alkaline Phosphatase Total Creatine Kinase Total Protein Albumin Globulin Albumin/Globulin Ratio Lipase Vitamin B12 TSH Free T4 1.34 Free T3 pg/mL 2.93 T3 Uptake 37.1 PD MEDICAL DECISION MAKING - ED course Complexity details: reviewed old records, reviewed results, considered differential (no clear reason for her tremoring. PCP could consider brain MRI or Neurology consult for central causes. Otherwise labs, tSH, vitB12. Then consider essential tremors. ), d/w patient Departure - Departure Disposition: 01 Home, Self Care Clinical Impression: Tremor Condition: Stable Record reviewed to determine appropriate education?: Yes Instructions: Essential Tremor ET Follow-Up: Ruth Ann Cunningham ARNP [Primary Care Provider] - Prescriptions: Primidone [Mysoline] 25 mg PO HS 30 Days #15 tablet Comments: At this point its not clear the cause of your tremor. Your basic blood count electrolytes thyroid study are normal. The medications on your current medication list are not associated as common causes of tremor. Follow-up with your primary care. They may or may not want to refer you to a specialist in tremor such as a neurologist for better thoughts on diagnosing. Meanwhile continue usual medications and we can start a medication that is used for essential tremor (idiopathic tremor not caused by medication etc.). I wrote a prescription for primidone which is used for essential tremor. We will start at a very low dose of just half a tablet at night once daily for the next few weeks to a month. Call to make a follow-up appoint with your primary care in the next week or so. Stay well-hydrated and usual diet. I sent your prescription to [facility] pharmacy in [place]. Discharge Date/Time: 08/02/22 08:02
[2022-08-02 04:55] LABS: THYROID STIMULATING HORMONE 0.12 uIU/mL (0.34-5.60)
[2022-08-02 05:57] LABS: T3 UPTAKE 37.1 % (32.0-48.4)
[2022-08-02 06:02] LABS: FREE T3 2.93 pg/mL (2.5-3.9)
[2022-08-02 06:03] LABS: FREE T4 (FREE THYROXINE) 1.34 ng/dL (0.58-1.64)
[2022-08-02 07:43] VITALS: BP 133/41
== END 2022-08-02 08:02 | disposition home or self-care (01) ==
LOC: ED 03:35
DX: R25.1 Tremor, unspecified (principal); I10 Essential (primary) hypertension; E11.42 Type 2 diabetes mellitus with diabetic polyneuropathy; Z79.4 Long term (current) use of insulin
CPT/HCPCS: 36415; 80053; 82550; 82607; 83690; 83735; 84439; 84443; 84479; 84481; 85025; 99283; 99284

== ENCOUNTER 2022-08-05 20:07 | Outpatient (CLI) | payer MEDICARE, MEDICAID | END 2022-08-05 20:08 | disposition left against medical advice (07) | LOC: EMS 20:07 | DX: R55 Syncope and collapse (principal); Z79.01 Long term (current) use of anticoagulants ==

== ENCOUNTER 2022-08-06 12:37 | Outpatient (CLI) | payer MEDICARE, MEDICAID | END 2022-08-06 12:38 | disposition critical access hospital (66) | LOC: EMS 12:37 | DX: R41.89 Other symptoms and signs involving cognitive functions and awareness (principal); R46.4 Slowness and poor responsiveness; R53.1 Weakness; W18.39XA Other fall on same level, initial encounter; Y92.002 Bathroom of unspecified non-institutional (private) residence as the place of occurrence of the external cause | CPT/HCPCS: A0425; A0429 ==

== ENCOUNTER 2022-08-06 12:58 | Emergency (ER) | payer MEDICARE, MEDICAID ==
--- NOTE | 2022-08-06 13:08 | ED Physician Documentation ---
PD HPI MAJOR TRAUMA - Stated complaint Stated Complaint: GLF/WEAK - Chief complaint Chief Complaint: Trauma Ch/Bk - History obtained from History obtained from: Patient, EMS - Additional information Additional information: 81-year-old woman presents by ambulance for a fall. She was at home today and heading to the bathroom and her legs just gave out on her. She feels generally weak and could not get up on her own. She was on the floor for about 45 minutes. She does not think she hit her head but she does feel "foggy." She complains of low back pain after the fall and also left calf pain. She is on a DOAC. She declines pain medication initial evaluation. She does states she falls frequently and uses a walker at home which she was using today when she fell. She has relatively frequent falls, this is her fourth ED visit in 2 months, with a very similar visit on the third of this month. History is from the patient as well as EMS. Review of Systems Ten Systems: 10 systems reviewed and negative Constitutional: denies: Fever, Chills Cardiac: denies: Chest pain / pressure, Palpitations Respiratory: denies: Dyspnea, Cough PD PAST MEDICAL HISTORY - Past Medical History Cardiovascular: Congestive heart failure, Hypertension, High cholesterol, Coronary artery disease, Peripheral Vascular Disease, Atrial fibrillation, Murmur, Other Respiratory: Sleep apnea, CPAP use Neuro: Dementia, CVA, Peripheral neuropathy, Other Endocrine/Autoimmune: Type 2 diabetes, HyPOthyroidism GI: GERD, GI bleed, Chronic constipation, Hemorrhoids : Incontinence, Chronic bladder infection, Kidney stones HEENT: Chronic vision loss Psych: Depression, Anxiety Musculoskeletal: Osteoarthritis, Gout, Chronic back pain Derm: Other - Past Surgical History Past Surgical History: Yes Ortho: Rotator cuff repair, Spine surgery /[employer]ING [employer]: Dilation and currettage Cardiovascular: CABG, Coronary stent HEENT: Tonsil/Adenoidectomy, Other - Present Medications Home Medications: Ambulatory Orders Medication Instructions Recorded Confirmed Metformin HCl 1,000 mg PO BIDWM 04/21/14 05/10/22 Insulin Glargine [Lantus] 25 unit SUBQ DAILY 09/04/14 05/10/22 Aspirin [Aspir 81] 81 mg PO DAILY 09/19/14 05/10/22 Losartan [Cozaar] 100 mg PO DAILY 09/19/14 05/10/22 Pregabalin [Lyrica] 50 mg PO QPM 09/19/14 05/10/22 Atorvastatin Calcium [Lipitor] 40 mg PO QPM 12/31/14 05/10/22 Insulin Lispro [Humalog] 6 units SQ TIDWM 12/31/14 05/10/22 Cyanocobalamin (Vitamin B-12) 1,000 mcg PO DAILY 05/09/19 04/05/22 [Vitamin B-12 (100mcg tab)] amLODIPine [Norvasc] 10 mg PO DAILY 04/06/21 05/10/22 Magnesium Oxide [Mag Ox] 400 mg PO DAILY #14 tablet 07/19/21 05/10/22 Solifenacin Succinate [Vesicare] 5 mg PO DAILY 12/21/21 05/10/22 Apixaban [Eliquis] 5 mg PO BID 30 Days #60 tablet 12/26/21 05/10/22 Furosemide [Lasix] 20 mg PO BID 7 Days #14 tablet 12/26/21 05/10/22 Metoprolol Succinate [Toprol Xl] 12.5 mg PO DAILY 05/10/22 05/10/22 Nitroglycerin [Nitrostat] 0.4 mg SL [id number] PRN 05/10/22 05/10/22 Spironolactone [Aldactone] 12.5 mg PO DAILY 05/10/22 05/10/22 Nitrofurantoin [Macrobid] 100 mg PO BID #10 cap 07/18/22 Primidone [Mysoline] 25 mg PO HS 30 Days #15 tablet 08/02/22 - Allergies Allergies/Adverse Reactions: Allergies Allergy/AdvReac Type Severity Reaction Status Date / Time No Known Drug Allergies Allergy Verified 08/06/22 13:04 - Social History Does the pt smoke?: No Smoking Status: Never smoker Does the pt drink ETOH?: No Does the pt have substance abuse?: No - Immunizations Immunizations are current?: Yes - POLST Patient has POLST: Yes POLST Status: DNR (directive on the fridge door) PD ED PE NORMAL - Vitals Vital signs reviewed: Yes - General General: Alert and oriented X 3, No acute distress - HEENT HEENT: PERRL, EOMI - Neck Neck: Supple, no meningeal sign, No bony TTP - Respiratory Respiratory: No respiratory distress, Clear bilaterally - Abdomen Abdomen: Non tender - Back Back: Other (Tender to the mid lumbar spine) - Derm Derm: Normal color, Warm and dry - Extremities Extremities: Other (There is no bony tenderness of any extremity.) - Neuro Neuro: Alert and oriented X 3, Normal speech Eye Opening: Spontaneous Motor: Obeys Commands Verbal: Oriented GCS Score: 15 Results - Vitals Vitals: Vital Signs - 24 hr 08/06/22 08/06/22 08/06/22 13:04 13:29 16:35 Temperature 36.7 C Heart Rate 74 70 62 Respiratory 16 17 18 Rate Blood Pressure 134/55 H 154/55 H 125/74 O2 Saturation 98 97 100 08/06/22 18:38 Temperature Heart Rate 56 L Respiratory 13 Rate Blood Pressure 122/83 H O2 Saturation 95 Oxygen O2 Source Room air - Labs Labs: Laboratory Tests 08/06/22 08/06/22 13:07 13:07 WBC 8.2 RBC 3.32 L Hgb 10.2 L Hct 30.3 L MCV 91.3 MCH 30.7 MCHC 33.7 RDW 14.9 Plt Count 260 MPV 9.9 Neut # (Auto) 6.5 Lymph # (Auto) 0.[address] [place] # (Auto) 0.7 Eos # (Auto) 0.4 Baso # (Auto) 0.1 Absolute Nucleated RBC 0.00 Nucleated RBC % 0.0 Sodium 136 Potassium 4.2 Chloride 98 L Carbon Dioxide 27 Anion Gap 11.0 BUN 36 H Creatinine 2.0 H Estimated GFR (MDRD) 24 L Glucose 255 H Calcium 9.6 Total Bilirubin 1.0 AST 15 ALT 14 Alkaline Phosphatase 60 Total Protein 6.9 Albumin 3.6 Globulin 3.3 Albumin/Globulin Ratio 1.1 - Rads (name of study) CT L spine, DJD/DDD, NAD Radiology: EMP read contemporaneously PD MEDICAL DECISION MAKING - ED course ED course: 81-year-old woman presents after a ground-level fall with some back pain but no apparent serious injury. Imaging has shown. She lives alone but with a visiting caregiver. The caregiver had been out sick with COVID for several weeks and therefore it sounds like she probably became deconditioned which I assume led to her more frequent weakness and falls leading to more frequent emergency department visits in the last few weeks. She and the sister at the bedside would like to pursue placement, they do not feel like she is strong enough to be living alone right now. Sister also notes that she was being sc heduled for pacemaker placement at [facility], but does not know the status of that. I did speak with Dr. Macias, contract mail carrier is at [facility]. They note that she has had some pauses, but he does not feel that her current symptomatology is related to her sinus pauses. She has not had any pauses while on the monitor here and really no bradycardias either. While she probably needs a pacemaker, it is not urgent. We tried road testing her and she could not walk. She could transfer to a wheelchair, but the tech thought she was shaky and weak enough that she would fall if she did this without assistance. As such the patient did not feel comfortable going home. She says she would feel more comfortable tomorrow going home if there was a wheelchair and a bedside commode which reportedly her sister is working on, also her caregiver will be at home tomorrow. There is no indication for hospital admission though. Departure - Departure Disposition: 01 Home, Self Care Clinical Impression: Weakness, Chronic atrial fibrillation, Adequate anticoagulation on anticoagulant therapy, Abnormal thyroid scan, Muscular deconditioning Injury of back Qualifiers: Encounter type: initial encounter Qualified Code(s): S39.92XA - Unspecified injury of lower back, initial encounter Condition: Good Record reviewed to determine appropriate education?: Yes Instructions: ED Contusion Back, ED Mechanical Fall Comments: You are seen today for another fall, you have been having frequent falls. Thankfully no serious injuries are noted, but, probably because of your caregiver getting sick, you have been weak and falling frequently. Thankfully there is also nothing that requires you to be admitted to the hospital. That said you were fairly weak and probably could use some extra help at home versus placement in an assisted living facility. You did have an abnormal prominent thyroid gland for which you should follow-up with your primary care physician and discuss an ultrasound on a nonemergent basis.
[2022-08-06 13:15] LABS: BASOPHILS # (AUTO) 0.1 10^3/uL (0.0-0.1); BASOPHILS % (AUTO) 0.6 %; EOSINOPHILS # (AUTO) 0.4 10^3/uL (0.0-0.7); EOSINOPHILS % (AUTO) 4.4 %; HCT - HEMATOCRIT 30.3 % (37.0-47.0); HGB - HEMOGLOBIN 10.2 g/dL (12.0-16.0); LYMPHOCYTES # (AUTO) 0.6 10^3/uL (1.5-3.5); LYMPHOCYTES % (AUTO) 7.3 %; MEAN CORPUSCULAR HEMOGLOBIN 30.7 pg (27.0-31.0); MEAN CORPUSCULAR HGB CONC 33.7 g/dL (32.0-36.0); MEAN CORPUSCULAR VOLUME 91.3 fL (81.0-99.0); MEAN PLATELET VOLUME 9.9 fL (7.9-10.8); MONOCYTES # (AUTO) 0.7 10^3/uL (0.0-1.0); MONOCYTES % (AUTO) 8.9 %; NEUTROPHILS # (AUTO) 6.5 10^3/uL (1.5-6.6); NEUTROPHILS % (AUTO) 78.6 %; PLT - PLATELET COUNT 260 10^3/uL (130-450); RED BLOOD COUNT 3.32 10^6/uL (4.20-5.40); RED CELL DISTRIBUTION WIDTH 14.9 % (12.0-15.0); WHITE BLOOD COUNT 8.2 x10^3/uL (4.8-10.8)
[2022-08-06 13:28] LABS: ALBUMIN 3.6 g/dL (3.2-5.5); ALBUMIN/GLOBULIN RATIO 1.1 (1.0-2.2); CALCIUM 9.6 mg/dL (8.5-10.3); POTASSIUM 4.2 mmol/L (3.5-5.0); TOTAL PROTEIN 6.9 g/dL (6.7-8.2)
--- NOTE | 2022-08-06 14:11 | CT Report ---
PROCEDURE: HEAD WO INDICATIONS: fall head inj TECHNIQUE: Noncontrast 4.5 mm thick angled axial sections acquired from the foramen magnum to the vertex. For r adiation dose reduction, the following was used: automated exposure control, adjustment of mA and/or kV according to patient size. COMPARISON: CTA head 07/17/2022 FINDINGS: Image quality: Excellent. The ventricular system and cortical sulci demonstrate atrophy, consistent for patient's stated age. There are areas of hypodensity in the periventricular and subcortical white matter. There is no acut e intra or extra-axial fluid collection. No acute hemorrhage, mass lesion or midline shift. Brainst em is unremarkable. Globes are symmetrical. Sinuses are aerated. Osseous structures are intact. IMPRESSION: 1. No acute intracranial process. 2. Moderate atrophy and chronic microvascular ischemic changes. Reviewed by: Macy Hemphill MD on 08/06/2022 2:10 PM PDT Approved by: Macy Hemphill MD on 08/06/2022 2:10 PM PDT Station ID: [id number]
--- NOTE | 2022-08-06 14:17 | CT Report ---
PROCEDURE: CERVICAL SPINE WO INDICATIONS: fall head inj TECHNIQUE: Noncontrast 3 mm thick sections acquired from the skull base to the T4 level. Sagittal and coronal r eformats were then constructed. For radiation dose reduction, the following was used: automated exp osure control, adjustment of mA and/or kV according to patient size. COMPARISON: CT cervical spine 07/17/2022 FINDINGS: Image quality: Excellent. Bones: No fractures or dislocations. Visualized superior ribs are intact. Soft tissues: Prevertebral soft tissues are normal in thickness. No paravertebral hematomas. No ap ical pneumothoraces. Thyroid gland is enlarged with heterogeneous areas of low attenuation and calci fication extending to the upper mediastinum. Appearance is stable. IMPRESSION: Multilevel degenerative changes without visualized fracture. Prominent thyroid gland with areas of calcification low-attenuation. Thyroid ultrasound is recommende d for further evaluation as indicated. Reviewed by: Macy Hemphill MD on 08/06/2022 2:15 PM PDT Approved by: Macy Hemphill MD on 08/06/2022 2:15 PM PDT Station ID: [id number]
--- NOTE | 2022-08-06 14:21 | CT Report ---
PROCEDURE: LUMBAR SPINE WO INDICATIONS: back inj TECHNIQUE: Noncontrast 3 mm thick sections acquired from the T12 level to the sacrum. Sagittal and coronal refo rmats were constructed. For radiation dose reduction, the following was used: automated exposure co ntrol, adjustment of mA and/or kV according to patient size. COMPARISON: MRI lumbar spine 01/03/2014 FINDINGS: Image quality: Excellent. Bones: There is trace retrolisthesis of L2 on L3. Severe disc space narrowing is present at L2-3 wit h prominent reactive endplate changes as well as subchondral sclerosis and cystic formation. Vacuum d isc is present. Severe disc space narrowing is also present although slightly to a lesser degree at L 4-5 also with vacuum disc and moderate at L5-S1 and L1-L2, with the latter also demonstrating vacuum disc. Multilevel anterior osteophytes are present bridging at L2-3. There are no visualized fractures or dislocations. Soft tissues: No retroperitoneal masses or hematomas. Visualized aorta is normal in caliber. Parti ally visualized simple renal cysts are present. There is a focus of low-attenuation within the medial left kidney with Hounsfield units of fat attenuation. 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 IMPRESSION: Multilevel degenerative changes without visualized fracture. Reviewed by: Macy Hemphill MD on 08/06/2022 2:20 PM PDT Approved by: Macy Hemphill MD on 08/06/2022 2:20 PM PDT Station ID: [id number]
[2022-08-06] MEDS: INSULIN LISPRO 300 UNIT/3 ML PEN SUBQ SCH (19:05)
[2022-08-06] MEDS: APIXABAN 5 MG TABLET PO SCH (20:55)
[2022-08-06] MEDS: metFORMIN 500 MG TABLET PO SCH (20:55)
[2022-08-06] MEDS ORDERED: INSULIN GLARGINE-YFGN 300 UNIT/3 ML PEN SUBQ SCH (21:00)
[2022-08-06] MEDS ORDERED: PREGABALIN 25 MG CAPSULE PO SCH (21:00)
[2022-08-06] MEDS ORDERED: ATORVASTATIN 40 MG TABLET PO SCH (21:00)
[2022-08-07] MEDS: INSULIN LISPRO 300 UNIT/3 ML PEN SUBQ SCH (08:28)
[2022-08-07] MEDS: metFORMIN 500 MG TABLET PO SCH (08:28)
[2022-08-07] MEDS: APIXABAN 5 MG TABLET PO SCH (08:28)
[2022-08-07 08:48] VITALS: BP 117/68
[2022-08-07] MEDS ORDERED: amLODIPine 5 MG TABLET PO SCH (09:00)
[2022-08-07] MEDS ORDERED: LOSARTAN 50 MG TABLET PO SCH (09:00)
== END 2022-08-07 08:58 | disposition home or self-care (01) ==
LOC: EDUNIT# → ED 12:58
DX: R94.6 Abnormal results of thyroid function studies (principal); M62.81 Muscle weakness (generalized); R29.898 Other symptoms and signs involving the musculoskeletal system; I48.20 Chronic atrial fibrillation, unspecified; Z91.81 History of falling; I10 Essential (primary) hypertension; E11.42 Type 2 diabetes mellitus with diabetic polyneuropathy; Z79.4 Long term (current) use of insulin; Z79.01 Long term (current) use of anticoagulants
CPT/HCPCS: 36415; 70450; 72125; 72131; 80053; 85025; 99284; A9270; J1815

== ENCOUNTER → 2022-08-08 | Outpatient (CLI) | payer MEDICARE, MEDICAID | END | disposition short-term general hospital (02) | LOC: EMS 11:12 | DX: R53.1 Weakness (principal); R09.89 Other specified symptoms and signs involving the circulatory and respiratory systems | CPT/HCPCS: A0425; A0429; A0888 ==